=== PATIENT | male | born 1950 | race Caucasian/White ===

== ENCOUNTER → 2016-11-08 | Outpatient (CLI) | payer OTHER ==
[~2016-11-08] MED LIST: ACET-1256 PO; MULT-513 PO; OXYC-57 PO; SIMV-151 PO
[2016-11-08 13:02] LABS: BLOOD UREA NITROGEN 18 mg/dl (7-18); BUN/CREATININE RATIO 16.6 (10-20); CARBON DIOXIDE 28 mmol/L (21-32); CHLORIDE 106 mmol/L (98-107); GLUCOSE 237 mg/dl (70-99); POTASSIUM 4.4 mmol/L (3.5-5.1); SODIUM 143 mmol/L (136-145)
== END | disposition home or self-care (01) ==
LOC: C.LABBFT 10:25
PROVIDERS: ATTEND Physician Assistant Medical
DX: I10 Essential (primary) hypertension (principal)

== ENCOUNTER → 2017-06-04 | Outpatient (CLI) | payer OTHER ==
[2017-06-04 12:37] LABS: BASO % 0.7 %; BASO ABS # 0.06 K/uL (0-0.2); EOS % 3.6 %; HEMATOCRIT 44.8 % (42-52); IG% 0.3 %; LYMPH % 21.8 %; LYMPH ABS # 1.89 K/uL (1.2-3.4); MEAN CELL VOLUME 97.4 fL (80-100); MEAN CORPUSCULAR HEMOGLOBIN 33.3 pg (25-34); MEAN PLATELET VOLUME 10.1 fL (7.4-10.4); MONO % 13.2 %; NEUT % 60.4 %; PLATELET COUNT 196 K/uL (130-400); WHITE BLOOD COUNT 8.65 K/uL (4.8-10.8)
[2017-06-04 12:42] LABS: COMPLETE YES; MEAN CORPUSCULAR HGB CONC 34.2 g/dl (32-36)
[2017-06-04 18:32] LABS: ALT/SGPT 79 U/L (12-78); BLOOD UREA NITROGEN 15 mg/dl (7-18); BUN/CREATININE RATIO 15.9 (10-20); CALCIUM 9.1 mg/dl (8.5-10.1); CARBON DIOXIDE 28 mmol/L (21-32); CHLORIDE 105 mmol/L (98-107); CREATININE 0.97 mg/dl (0.60-1.40); GLUCOSE 119 mg/dl (70-99); POTASSIUM 3.7 mmol/L (3.5-5.1); SODIUM 139 mmol/L (136-145)
[2017-06-04 18:58] LABS: ALB/GLOB RATIO 0.9 (0.9-2); ALKALINE PHOSPHATASE 86 U/L (45-117); AST/SGOT 50 U/L (15-37); THYROID STIMULATING HORMONE 0.458 uIu/ml (0.300-4.500)
== END | disposition home or self-care (01) ==
LOC: C.LABBFT 11:20
PROVIDERS: ATTEND Internal Medicine Hematology
DX: C79.2 Secondary malignant neoplasm of skin (principal); C43.61 Malignant melanoma of right upper limb, including shoulder; Z51.81 Encounter for therapeutic drug level monitoring; Z79.899 Other long term (current) drug therapy

== ENCOUNTER 2022-07-18 15:35 | Inpatient (IN) ==
--- NOTE | 2022-07-18 15:53 | Emergency Department Note ---
Impression & Plan Acute hypotension, Weakness, Fall, Cellulitis, Fracture of rib ED Provider Note NAME: SANTY MCFADDEN AGE: 72 SEX: M : 1950 ARRIVES VIA: Ambulance INFORMANT: Patient ED PROVIDER(S): Gurmeet Goodman DO CHIEF COMPLAINT: hypotension HPI: Patient is a 72-year-old male with a past medical history of squamous cell carcinoma, basal cell carcinoma, esophageal carcinoma who presents to the ER following a fall at home last night. He laid on the floor for 3 hours and was unable to get up. He was seen at PCPs office and referred in as he was found to be hypotensive. He notes he could feel his heart racing last night but denies any chest pain. He admits to shortness of breath which is unchanged from his typical shortness of breath. He admits to erythema on the anterior aspect of his abdomen which is new when today's first time he seen this. Denies any dysuria, urgency, or frequency. No weakness or numbness in the arms or legs. No other exacerbating or remitting factors. PAST MEDICAL HISTORY:See Below PAST SURGICAL HISTORY:See Below FAMILY HISTORY:See Below SOCIAL HISTORY:See Below HOME MEDICATIONS:See Below ALLERGIES:See Below VITALS:See Below PHYSICAL EXAMINATION: GENERAL: Sitting up in bed, alert, ill-appearing, disheveled EYE EXAM: normal conjunctiva. PERRL and EOM's grossly intact. OROPHARYNX: no exudate, no erythema, lips, buccal mucosa, and tongue normal and mucous membranes are moist NECK: supple, no nuchal rigidity, no adenopathy, non-tender LUNGS: Diminished bilaterally. Normal chest wall mechanics HEART: Tachycardic and irregular regular, S1 normal and S2 normal ABDOMEN: abdomen soft, non-tender, normo-active bowel sounds, no masses, no rebound or guarding. UPPER EXTREMITIES: Flexion-extension bilateral shoulders, elbows, wrist, and grasp is intact bilaterally with abrasions over the left elbow. No bony tenderness. LOWER EXTREMITIES: Pitting edema to bilateral lower extremities tracking up to abdomen NEURO EXAM: Normal sensorium, cranial nerves II-XII grossly intact, normal speech, no gross weakness of arms, no gross weakness of legs. MEDICAL DECISION MAKING: Patient is a 72-year-old male who presents ER from PCPs office. External records were reviewed. IV was established blood work was obtained. Systolic pressures dropped into the 70s upon initial arrival. He was given a bolus of IV fluids. The responded to the 90s. He dropped his pressures again into the 70s and it responded once again with fluids. Remainder of his stay pressures remained in the 90s. Labs show leukocytosis 13,000. Hemoglobin 10.6 consistent with previous. INR 1.5. BMP with a creatinine 1.9 which has doubled in comparison to previous. Lactate was normal. T bili at 1.5 with a mild transaminitis. Total CK was only 680. Troponin was negative. With the fall CT of the head, chest abdomen pelvis was obtained and showed a questionable rib fracture. Patient does have erythema on the anterior abdomen. It is warm and tender to palpation. Do favor that this likely source. He was given IV fluids as well as as albumin, and cefepime. Blood pressures responded well and remained in the low 100s/high 90s. He was updated at bedside. Discussed with the hospitalist for further evaluation and treatment. He was not given 30 cc/kg due to the extensive pitting edema and ascites with concern for failure/volume overload. Triage Nursing notes reviewed. Limited review of prior medical records performed Vital Signs: reviewed and remarkable for hypotension Differential diagnosis: Differential diagnosis includes etiologies such as sepsis, UTI, pneumonia, metabolic, electrolyte abnormalities, cardiac sources, intracerebral event, toxicologic, neurological, as well as others were entertained. ER treatment provided: See below Diagnostics interpreted by me include EKG and cardiac monitoring as listed below: -Cardiac Monitoring: An order was placed for continuous cardiac monitoring. The monitor shows a rate of 97 with Afib rhythm. -ECG: A. fib rate of 96 Normal axis No PVCs QTC 449 -Laboratory studies:Interpreted by me as stated above in MDM and shown below. Imaging studies: Xrays: As interpreted by me: Portable AP upright 1 view the chest shows no focal infiltrate per my read CTs show: CT bess scan shows questionable rib fracture along the 12th rib and a likely mass. Consultation(s): Discussed case with Dr. Harry Schwarz in regards to presentation work-up and further treatment. Procedures:none Critical Care: I have personally spent 32 minutes of critical care time in the direct management of this patient. This includes bedside care, interpretation of diagnostic studies, and testing, discussion with consultants, patient, and family members, and other required patient management activities. This 32 minutes is in excess of all separately billable procedures. Past Med/Surg History Medical History Henry's esophagus BCC (basal cell carcinoma of skin) Bilateral nephrolithiasis Diabetes mellitus, type 2 Esophageal adenocarcinoma Gallstones GERD (gastroesophageal reflux disease) History of colon cancer History of eye cancer Hyperlipidemia Hypertension Hypothyroidism Inguinal hernia, bilateral Melanoma Nonalcoholic fatty liver disease Rib fracture SCC (squamous cell carcinoma) Surgical History H/O colonoscopy H/O eye surgery H/O right hemicolectomy History of esophagogastroduodenoscopy (EGD) History of left cataract surgery History of surgery on arm History of tooth extraction Family History Mother Diabetes Father Diabetes Other Hyperlipidemia No family history of adverse response to anesthesia Stroke Denies family history of Ovarian cancer Prostate cancer Breast cancer Colorectal cancer Social History Smoking Status: Former smoker Age Started Using Tobacco: 11; Age Quit Using Tobacco: 62; packs per day: 1.5; Cigarettes Per Day: 7 YEARS AGO; Second Hand Exposure: No; Hx Alcohol Use: No Hx Substance Use: No Preferred Language: Italian Communication Ability: Effective Hearing Ability: Normal 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 Required: No Beliefs That Will Affect Care: None marital status: / Current Living Situation: Alone current occupational status: retired Feels Safe at Home: Yes Seatbelt Use: always Sunscreen Use: Yes Assistive Devices: Denture - Upper, Denture - Lower and Glasses Allergies Allergies Allergy/AdvReac Type Severity Reaction Status Date / Time No Known Allergies Allergy Verified 07/18/22 14:26 Home Meds Home Medications Medication Instructions Recorded Confirmed multivitamin 1 tab PO QPM 01/26/19 07/18/22 lancets 33 gauge (Shruthi Iniguez #100 ea 06/27/21 07/18/22 Lancets) lisinopril 20 mg tablet 20 mg PO QPM 10/01/21 07/18/22 aspirin 81 mg tablet,delayed 81 mg PO DAILY 07/18/22 07/18/22 release atorvastatin 40 mg tablet 40 mg PO HS 07/18/22 07/18/22 insulin aspart U-100 100 unit/mL 12 unit subcut TID 07/18/22 07/18/22 (3 mL) subcutaneous pen (Novolog FlexPen U-100 Insulin aspart) insulin glargine 100 unit/mL (3 32 unit subcut HS 07/18/22 07/18/22 mL) subcutaneous pen (Basaglar KwikPen U-100 Insulin) levothyroxine 88 mcg tablet 88 mcg PO QAM 07/18/22 07/18/22 liraglutide 0.6 mg/0.1 mL (18 mg/3 1.8 mg subcut DAILY 07/18/22 07/18/22 mL) subcutaneous pen injector ([facility]) omeprazole 40 mg capsule,delayed 40 mg PO DAILY 07/18/22 07/18/22 release Previous Rx's Medication Instructions Recorded OneTouch Verio test strips (blood #300 ea 02/06/22 sugar diagnostic) pen needle, diabetic 32 gauge x #500 ea 02/06/22 5/32" (BD Ultra-Fine Pascale Pen Needle) Results & Data (ED) Vital Signs Vital Signs - 24 hr 07/18/22 15:51 07/18/22 16:00 07/18/22 16:00 Temperature 36.4 C L Temperature Source Oral Pulse Rate 92 H Pulse Rate [Right Finger] 94 H Pulse Rhythm [Right Finger] Pulse Strength [Right Finger] Respiratory Rate Respiratory Effort / Characteristics Respiratory Depth Respiratory Pattern Blood Pressure 92/51 L Blood Pressure [Right Arm] 92/51 L Blood Pressure Mean 64 Blood Pressure Mean [Right Arm] 64 Blood Pressure Position [Right Arm] Pulse Oximetry 98 94 Oxygen Delivery Method Room Air Room Air Sepsis Recent Fever Within 48 Hours No Sepsis New/Unexplained Change in Mental Status No Sepsis Action Taken by Nursing No Action Required Pulse Oximetry Post Tiitration 94 07/18/22 16:29 07/18/22 16:43 07/18/22 17:48 Temperature Temperature Source Pulse Rate Pulse Rate [Right Finger] 92 H 97 H Pulse Rhythm [Right Finger] Pulse Strength [Right Finger] Respiratory Rate Respiratory Effort / Characteristics Respiratory Depth Respiratory Pattern Blood Pressure Blood Pressure [Right Arm] 88/53 L Blood Pressure Mean Blood Pressure Mean [Right Arm] 64 Blood Pressure Position [Right Arm] Pulse Oximetry 95 93 Oxygen Delivery Method Room Air Room Air Sepsis Recent Fever Within 48 Hours Sepsis New/Unexplained Change in Mental Status Sepsis Action Taken by Nursing Pulse Oximetry Post Tiitration 07/18/22 17:48 07/18/22 18:02 07/18/22 18:34 Temperature Temperature Source Pulse Rate Pulse Rate [Right Finger] 90 91 H 95 H Pulse Rhythm [Right Finger] Pulse Strength [Right Finger] Respiratory Rate Respiratory Effort / Characteristics Respiratory Depth Respiratory Pattern Blood Pressure Blood Pressure [Right Arm] 97/62 L 73/55 L 84/65 L Blood Pressure Mean Blood Pressure Mean [Right Arm] 73 61 71 Blood Pressure Position [Right Arm] Pulse Oximetry 93 93 93 Oxygen Delivery Method Room Air Room Air Room Air Sepsis Recent Fever Within 48 Hours Sepsis New/Unexplained Change in Mental Status Sepsis Action Taken by Nursing Pulse Oximetry Post Tiitration 07/18/22 19:00 07/18/22 19:15 07/18/22 19:30 Temperature Temperature Source Pulse Rate Pulse Rate [Right Finger] 100 H 99 H 98 H Pulse Rhythm [Right Finger] Regular Regular Regular Pulse Strength [Right Finger] Normal Normal Normal Respiratory Rate 17 18 18 Respiratory Effort / Characteristics Non-Labored Non-Labored Non-Labored Respiratory Depth Normal Normal Normal Respiratory Pattern Regular Regular Regular Blood Pressure Blood Pressure [Right Arm] 84/65 L 123/59 L 97/55 L Blood Pressure Mean Blood Pressure Mean [Right Arm] 71 80 69 Blood Pressure Position [Right Arm] Lying Lying Lying Pulse Oximetry 93 95 93 Oxygen Delivery Method Room Air Room Air Room Air Sepsis Recent Fever Within 48 Hours Sepsis New/Unexplained Change in Mental Status Sepsis Action Taken by Nursing Pulse Oximetry Post Tiitration 07/18/22 19:45 07/18/22 20:00 Temperature Temperature Source Pulse Rate Pulse Rate [Right Finger] 97 H 97 H Pulse Rhythm [Right Finger] Regular Regular Pulse Strength [Right Finger] Normal Normal Respiratory Rate 18 18 Respiratory Effort / Characteristics Non-Labored Non-Labored Respiratory Depth Normal Normal Respiratory Pattern Regular Regular Blood Pressure Blood Pressure [Right Arm] 94/50 L Blood Pressure Mean Blood Pressure Mean [Right Arm] 64 Blood Pressure Position [Right Arm] Lying Pulse Oximetry 93 93 Oxygen Delivery Method Room Air Room Air Sepsis Recent Fever Within 48 Hours Sepsis New/Unexplained Change in Mental Status Sepsis Action Taken by Nursing Pulse Oximetry Post Tiitration Laboratory Data 07/18/22 16:30 07/18/22 16:30 Lab Results 07/18/22 07/18/22 07/18/22 Range/Units 16:16 16:30 16:30 WBC 13.34 H (4.8-10.8) K/ul RBC 3.37 L (4.70-6.10) M/uL Hgb 10.6 L (14.0-18.0) g/dl POC Hgb 12.2 L (14.0-18.0) g/dl Hct 33.1 L (42.0-52.0) % POC Hct 36 L (42-52) % MCV 98.2 (80.0-100.0) fL MCH 31.5 (25.0-34.0) pg MCHC 32.0 (32.0-36.0) g/dL RDW Std Deviation 50.8 H (36.4-46.3) fL RDW Coeff of Merritt 14.1 (11.5-14.5) % Plt Count 265 (130-400) K/uL MPV 9.9 (9.4-12.4) fL Immature Gran % (Auto) 0.6 % Neut % (Auto) 82.2 % Lymph % (Auto) 6.3 % Jackson % (Auto) 10.6 % Eos % (Auto) 0.1 % Baso % (Auto) 0.2 % Neut # (Auto) 10.96 H (1.40-6.50) K/uL Lymph # (Auto) 0.84 L (1.2-3.4) K/uL Jackson # (Auto) 1.41 H (0.11-0.59) K/uL Eos # (Auto) 0.02 (0-0.50) K/uL Baso # (Auto) 0.03 (0-0.2) K/uL Immature Gran # (Auto) 0.08 (0.01-0.20) K/uL PT (9.0-12.0) Seconds INR (0.9-1.1) APTT (21.0-31.0) Seconds PTT Ratio POC Sodium 142 (135-144) mmol/L Sodium 142 (136-145) mmol/L POC Potassium 4.5 (3.3-5.0) mmol/L Potassium 4.6 (3.5-5.1) mmol/L POC Chloride 108 (101-112) mmol/L Chloride 108 H (98-107) mmol/L Carbon Dioxide 25 (21-32) mmol/L POC Total CO2 26 (24-31) mmol/L Anion Gap 9 (3-11) POC Anion Gap 14.0 L (16-25) mmol/L POC BUN 34 H (7-18) mg/dl BUN 34 H (6-23) mg/dl Creatinine 1.91 H (0.6-1.4) mg/dl POC Creatinine 2.1 H (0.6-1.3) mg/dl Est Cr Clr Drug Dosing 43.1 ml/min Est GFR ( Amer) 39.4 ml/min Est GFR (Non-Af Amer) 34.0 ml/min BUN/Creatinine Ratio 17.8 (10-20) Glucose 84 (70-99(Fasting)) mg/dl POC Glucose (other) 81 (70-99) mg/dl Lactate (0.4-2.0) mmol/L Calcium 8.4 L (8.5-10.1) mg/dl POC Ioniz Calcium Bam 1.06 L (1.12-1.32) mmol/l Magnesium 2.2 (1.7-2.4) mg/dl Total Bilirubin 1.5 H (0.2-1.0) mg/dl Direct Bilirubin 0.6 H (0-0.2) mg/dl AST 86 H (13-39) U/L ALT 58 H (7-52) U/L Alkaline Phosphatase 174 H (34-104) U/L Total Creatine Kinase 680 H (30-223) U/L Troponin I High Sens 18.3 (0-20) pg/ml Total Protein 6.8 (6.0-8.3) gm/dl Albumin 2.4 L (3.4-5.0) gm/dl Procalcitonin (0-0.5) ng/ml SARS-CoV-2, RNA, NAAT (NEGATIVE) 07/18/22 07/18/22 07/18/22 Range/Units 16:30 16:30 17:26 WBC (4.8-10.8) K/ul RBC (4.70-6.10) M/uL Hgb (14.0-18.0) g/dl POC Hgb (14.0-18.0) g/dl Hct (42.0-52.0) % POC Hct (42-52) % MCV (80.0-100.0) fL MCH (25.0-34.0) pg MCHC (32.0-36.0) g/dL RDW Std Deviation (36.4-46.3) fL RDW Coeff of Merritt (11.5-14.5) % Plt Count (130-400) K/uL MPV (9.4-12.4) fL Immature Gran % (Auto) % Neut % (Auto) % Lymph % (Auto) % Jackson % (Auto) % Eos % (Auto) % Baso % (Auto) % Neut # (Auto) (1.40-6.50) K/uL Lymph # (Auto) (1.2-3.4) K/uL Jackson # (Auto) (0.11-0.59) K/uL Eos # (Auto) (0-0.50) K/uL Baso # (Auto) (0-0.2) K/uL Immature Gran # (Auto) (0.01-0.20) K/uL PT 15.4 H (9.0-12.0) Seconds INR 1.5 H (0.9-1.1) APTT 31.8 H (21.0-31.0) Seconds PTT Ratio 1.2 POC Sodium (135-144) mmol/L Sodium (136-145) mmol/L POC Potassium (3.3-5.0) mmol/L Potassium (3.5-5.1) mmol/L POC Chloride (101-112) mmol/L Chloride (98-107) mmol/L Carbon Dioxide (21-32) mmol/L POC Total CO2 (24-31) mmol/L Anion Gap (3-11) POC Anion Gap (16-25) mmol/L POC BUN (7-18) mg/dl BUN (6-23) mg/dl Creatinine (0.6-1.4) mg/dl POC Creatinine (0.6-1.3) mg/dl Est Cr Clr Drug Dosing ml/min Est GFR ( Amer) ml/min Est GFR (Non-Af Amer) ml/min BUN/Creatinine Ratio (10-20) Glucose (70-99(Fasting)) mg/dl POC Glucose (other) (70-99) mg/dl Lactate 1.4 (0.4-2.0) mmol/L Calcium (8.5-10.1) mg/dl POC Ioniz Calcium Bam (1.12-1.32) mmol/l Magnesium (1.7-2.4) mg/dl Total Bilirubin (0.2-1.0) mg/dl Direct Bilirubin (0-0.2) mg/dl AST (13-39) U/L ALT (7-52) U/L Alkaline Phosphatase (34-104) U/L Total Creatine Kinase (30-223) U/L Troponin I High Sens (0-20) pg/ml Total Protein (6.0-8.3) gm/dl Albumin (3.4-5.0) gm/dl Procalcitonin 0.78 H (0-0.5) ng/ml SARS-CoV-2, RNA, NAAT (NEGATIVE) 07/18/22 Range/Units 19:30 WBC (4.8-10.8) K/ul RBC (4.70-6.10) M/uL Hgb (14.0-18.0) g/dl POC Hgb (14.0-18.0) g/dl Hct (42.0-52.0) % POC Hct (42-52) % MCV (80.0-100.0) fL MCH (25.0-34.0) pg MCHC (32.0-36.0) g/dL RDW Std Deviation (36.4-46.3) fL RDW Coeff of Merritt (11.5-14.5) % Plt Count (130-400) K/uL MPV (9.4-12.4) fL Immature Gran % (Auto) % Neut % (Auto) % Lymph % (Auto) % Jackson % (Auto) % Eos % (Auto) % Baso % (Auto) % Neut # (Auto) (1.40-6.50) K/uL Lymph # (Auto) (1.2-3.4) K/uL Jackson # (Auto) (0.11-0.59) K/uL Eos # (Auto) (0-0.50) K/uL Baso # (Auto) (0-0.2) K/uL Immature Gran # (Auto) (0.01-0.20) K/uL PT (9.0-12.0) Seconds INR (0.9-1.1) APTT (21.0-31.0) Seconds PTT Ratio POC Sodium (135-144) mmol/L Sodium (136-145) mmol/L POC Potassium (3.3-5.0) mmol/L Potassium (3.5-5.1) mmol/L POC Chloride (101-112) mmol/L Chloride (98-107) mmol/L Carbon Dioxide (21-32) mmol/L POC Total CO2 (24-31) mmol/L Anion Gap (3-11) POC Anion Gap (16-25) mmol/L POC BUN (7-18) mg/dl BUN (6-23) mg/dl Creatinine (0.6-1.4) mg/dl POC Creatinine (0.6-1.3) mg/dl Est Cr Clr Drug Dosing ml/min Est GFR ( Amer) ml/min Est GFR (Non-Af Amer) ml/min BUN/Creatinine Ratio (10-20) Glucose (70-99(Fasting)) mg/dl POC Glucose (other) (70-99) mg/dl Lactate (0.4-2.0) mmol/L Calcium (8.5-10.1) mg/dl POC Ioniz Calcium Bam (1.12-1.32) mmol/l Magnesium (1.7-2.4) mg/dl Total Bilirubin (0.2-1.0) mg/dl Direct Bilirubin (0-0.2) mg/dl AST (13-39) U/L ALT (7-52) U/L Alkaline Phosphatase (34-104) U/L Total Creatine Kinase (30-223) U/L Troponin I High Sens (0-20) pg/ml Total Protein (6.0-8.3) gm/dl Albumin (3.4-5.0) gm/dl Procalcitonin (0-0.5) ng/ml SARS-CoV-2, RNA, NAAT NEGATIVE (NEGATIVE) Administered Medications Albumin Human (Albumin 25% 100 Ml) 25 gm in 100 mls @ 50 mls/hr IV Q2H BATSHEVA Stop: 07/19/22 01:14 Last Admin: 01/26/23 20:17 Dose: 50 mls/hr Documented By: LRS Discontinued Medications Sodium Chloride (Nss 1000ml) 1,000 mls @ 999 mls/hr IV .Q1H1M ONE Stop: 07/18/22 19:05 Last Infusion: 07/18/22 19:33 Dose: 0 mls/hr Documented By: Admin: 07/18/22 18:10 Dose: 999 mls/hr Documented By: MES Cefepime HCl (Maxipime) 2,000 mg in 20 mls @ 5 mls/min IV NOW STA; Protocol Stop: 07/18/22 18:09 Last Admin: 07/18/22 18:29 Dose: 5 mls/min Documented By: MES Albumin Human (Albumin 25% 100 Ml) 25 gm in 100 mls @ 50 mls/hr IV ONE ONE Stop: 07/18/22 20:09 Last Infusion: 07/18/22 20:12 Dose: 0 mls/hr Documented By: Admin: 07/18/22 18:30 Dose: 50 mls/hr Documented By: MES Midodrine (Midodrine Hcl 2.5 Mg Tab) 5 mg PO ONE STA Stop: 07/18/22 18:47 Last Admin: 07/18/22 19:09 Dose: 5 mg Documented By: [facility] Imaging Data Radiologist's Impression: Cervical Spine CT 07/18/22 15:47 CT cervical spine wo con CLINICAL HISTORY: 72 years-old Male with fall. Acute head and neck injury status post fall COMPARISON: Head CT of same day TECHNIQUE: Multiple axial CT images of the cervical spine were obtained without contrast. A dose lowering technique was utilized adhering to the principles of ALARA. FINDINGS: Straightening of the normal cervical lordosis. Prominent osteophytic spurring with posterior disc osteophyte complex formations, largest at the C5-C6 level resulting in severe central canal stenosis. Additional multilevel central canal or neural foraminal narrowing, suboptimally assessed by CT technique. Moderate multilevel facet arthrosis. No acute cervical spine fracture or mckeon bluxation identified. The cervical soft tissues appear unremarkable. Polypoid mucosal thickening of the left maxillary sinus is partially imaged. The visualized lung apices appear clear. IMPRESSION: No acute cervical spine fracture or subluxation identified. ACT 112: Negative or not required by law. The above report was generated using voice recognition software. It may contain grammatical, syntax or spelling errors. Electronically signed by: Erwin Gomez M.D. 07/18/2022 5:[address] 07/18/22 15:[address] DOSE: HISTORY: Headache. Dizziness. TECHNIQUE: Multiaxial CT images of the head were performed without the use of intravenous contrast. Automated exposure control was utilized for this study. A dose lowering technique was utilized adhering to the principles of ALARA. Comparison: None. Findings: There is a 1.5 cm retention cyst within the left maxillary sinus. The mastoid air cells are clear. The calvarium and skull base are intact. There is no mass, hematoma, midline shift, acute infarct. White matter hypodensity is nonspecific but suggestive of microvascular ischemic change. The ventricles and sulci demonstrate mild age-related involutional changes. Impression: No acute intracranial abnormality. Atrophy and microvascular ischemic changes. ACT 112: Negative or not required by law. Electronically signed by: José Miguel Maloney M.D. 07/18/2022 5:46 PM Chest X-Ray 07/18/22 15:48 XR chest 1V portable HISTORY: 72 years-old Male Sepsis acute sepsis COMPARISON: Chest radiograph 04/01/2014 TECHNIQUE: AP view of the chest FINDINGS: Cardiac mediastinal and hilar silhouettes are within normal limits. No pneumothorax, pleural effusion, airspace consolidation or overt pulmonary edema. Degenerative changes of the shoulders and spine. IMPRESSION: No acute process. ACT 112: Negative or not required by law. The above report was generated using voice recognition software. It may contain grammatical, syntax or spelling errors. Electronically signed by: Erwin Gomez M.D. 07/18/2022 4:47 PM Abdomen/Pelvis CT 07/18/22 16:[address] WITHOUT CONTRAST HISTORY: Acute generalized abdominal pain status post fall abd pain TECHNIQUE: Multiaxial CT images of the abdomen and pelvis were performed without contrast. A dose lowering technique was utilized adhering to the principles of ALARA. COMPARISON STUDY: Chest CT of same day, CT abdomen and pelvis 03/27/2014 FINDINGS: Mild linear subsegmental atelectasis of the right lower lobe. No pneumatosis or pneumoperitoneum. The study is degraded by respiratory motion artifact. The unenhanced spleen is enlarged measuring 15 cm in length. Moderately dystrophic pancreas. Mild thickening of the left greater than right adrenal glands similar prior suggestive of hyperplasia. Cirrhotic liver. No hepatic mass identified. Contracted gallbladder with cholelithiasis. 8 mm cortical calcification of the superior pole right kidney. 4 mm nonobstructing calculus of the inferior pole left kidney. No ureteral calculi or hydronephrosis. Partial distention of the urinary bladder. Mild prostamegaly. Small fat filled inguinal hernias. Atherosclerosis of the aorta with fusiform infrarenal images and dilation, 3.2 x 2.8 cm. No lymphadenopathy identified. Small hiatal hernia. Mild wall thickening of the distal stomach may be secondary to partial distention. Recanalization of the umbilical vein. Moderate abdominal ascites with abdominal varicosities. Circumferential wall thickening of the rectum with perirectal stranding. Colonic diverticulosis. Wall thickening of the descending and sigmoid colon. Postoperative changes of partial right hemicolectomy. Mild twisting of the central mesentery with nonobstructive bowel gas pattern. Mild generalized body wall edema. 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 Possible acute nondisplaced fracture of the posterior left 12th rib. Degenerative changes of the spine, pelvis and hips. L5-S1 posterior disc osteophyte complex formation. IMPRESSION: 1. No acute posttraumatic intra-abdominal or intrapelvic abnormality identified. 2. Equivocal acute nondisplaced fracture of the posterior left 12th rib. Correlate with point tenderness. 3. Cirrhosis with evidence of portal venous hypertension including splenomegaly with moderate abdominal pelvic ascites. 4. Mild wall thickening of the distal colon and rectum may be secondary to a nonspecific proctocolitis versus portal colopathy. 5. Postoperative changes of right hemicolectomy. 6. Cholelithiasis. 7. Bilateral renal calcifications. No hydronephrosis. 8. Additional findings as above. ACT 112: Negative or not required by law. The above report was generated using voice recognition software. It may contain grammatical, syntax or spelling errors. Electronically signed by: Erwin Gomez M.D. 07/18/2022 5:[address] 07/18/22 16:43 CT chest diagnostic wo con CT DOSE: 3335.02 mGy.cm HISTORY: Atypical chest pain. Fall. fall hypotension TECHNIQUE: Multiaxial CT images of the chest were performed without contrast. A dose lowering technique was utilized adhering to the principles of ALARA. COMPARISON: Abdomen and pelvis CT 03/27/2014.. FINDINGS: No acute fractures identified within the chest. Old, healed left lower rib fractures are noted. There is an old nonunited right posterior 11th rib fracture. The abdominal structures will be reported in the same day abdomen and pelvis CT. Normal thyroid gland. No mediastinal hematoma. Increase in size in a 1 cm anterior pericardial lymph node. This previously measured 5 mm. Small fat-containing hiatal hernia is noted cirrhotic liver with splenomegaly and ascites. No pleural or pericardial effusions. Normal caliber esophagus. Mild calcified plaque within the normal caliber thoracic aorta. The heart is normal in size. No pneumothorax. There is mild bronchial wall thickening. There is mild emphysema. Stable 6 mm nodule within the base of the left lower lobe on image 251. This is likely benign given the long-term stability. Nodular thickening along left major fissure with a punctate calcification is likely benign. There is a 2 mm nodule within the right lung apex on image 42. Partially calcified lobular density within the right lung base which has slightly increased in size in the interval. This results in areas of retraction of the right lung base. This may represent a calcified pleural plaque with associated scarring of the right lung base. However, the 3.3 x 2.2 cm lobular density in image 249 has slightly progressed. This previously measured 2.7 x 1.8 cm. IMPRESSION: 1. No acute traumatic process within the chest. 2. Partially calcified lobular density within the right lung base which has slightly increased in size in the interval. This results in areas of retraction of the right lung base. This may represent a calcified pleural plaque with associated scarring of the right lung base. However, the 3.3 x 2.2 cm lobular density at the right lung base has slightly progressed. This previously measured 2.7 x 1.8 cm. Therefore, [address] follow-up recommended to ensure stability. 3. Emphysema. 4. Cirrhotic liver and ascites are better appreciated on the same day abdomen and pelvis CT. ACT 112: Positive. There are findings on this exam that require communication between the performing entity and the patient following Patient Test Result Information Act ([place] Act 112) guidelines. Electronically signed by: José Miguel Maloney M.D. 07/18/2022 5:56 PM Discharge Plan Visit Data Chief Complaint: Hypotension Stated Complaint: HYPOTENSION ED Provider: Gurmeet Goodman Discharge Problem: Acute hypotension, Weakness, Fall, Cellulitis, Fracture of rib Forms Stand Alone Forms: My [facility] Prescriptions Prescriptions: No Action (DME) OneTouch Verio test strips Strip See Dose Instructions .ROUTE .MEDSUPPLY Qty: 300 3RF Rx Instructions: Test blood sugars 3 times a day (DME) pen needle, diabetic [BD Ultra-Fine Pascale Pen Needle] 32 gauge x 5/32" needle See Dose Instructions .ROUTE .MEDSUPPLY Qty: 500 3RF Rx Instructions: Inject insulin 5 times a day multivitamin tablet 1 tab PO QPM (DME) lancets [OneTouch Delica Lancets] 33 gauge misc See Rx Instructions .ROUTE .MEDSUPPLY Qty: 100 Rx Instructions: Test blood sugars 2 times a day lisinopril 20 mg tablet 20 mg PO QPM Victoza 3-Joshua 0.6 mg/0.1 mL (18 mg/3 mL) pen injector 1.8 mg SUBCUT DAILY atorvastatin 40 mg tablet 40 mg PO HS Rx Instructions: TAKE 1 TAB BY MOUTH AT BEDTIME omeprazole 40 mg capsule,delayed release(DR/EC) 40 mg PO DAILY Rx Instructions: TAKE 1 CAPSULE BY MOUTH DAILY insulin aspart U-100 [Novolog FlexPen U-100 Insulin] 100 unit/mL (3 mL) insulin pen 12 unit SQ TID Rx Instructions: plus sliding scale insulin glargine [Basaglar KwikPen U-100 Insulin] 100 unit/mL (3 mL) insulin pen 32 unit SQ HS Rx Instructions: 32 units subcut at bedtime; aspirin [Aspir-Low] 81 mg Tablet,Delayed Release (Dr/Ec) 81 mg PO DAILY levothyroxine 88 mcg tablet 88 mcg PO QAM Rx Instructions: 88 mcg PO TAKE ON AN EMPTY STOMACH WITH A FULL GLASS OF WATER, WAIT 30 MINUTES TO EAT, DRINK, OR TAKE MEDICATIONS; Referrals Referrals: Rosalva Bravo MD [Primary Care Provider] -
[2022-07-18 16:29] LABS: iSTAT Creatinine 2.1 mg/dl (0.6-1.3); iSTAT Hemoglobin 12.2 g/dl (14.0-18.0); iSTAT Ionized Calcium 1.06 mmol/l (1.12-1.32); iSTAT Potassium 4.5 mmol/L (3.3-5.0)
--- NOTE | 2022-07-18 16:48 | XRay Report ---
XR chest 1V portable HISTORY: 72 years-old Male Sepsis acute sepsis COMPARISON: Chest radiograph 04/01/2014 TECHNIQUE: AP view of the chest FINDINGS: Cardiac mediastinal and hilar silhouettes are within normal limits. No pneumothorax, pleural effusion , airspace consolidation or overt pulmonary edema. Degenerative changes of the shoulders and spine. IMPRESSION: No acute process. ACT 112: Negative or not required by law. The above report was generated using voice recognition software. It may contain grammatical, syntax o r spelling errors. Electronically signed by: Erwin Gomez M.D. 07/18/2022 4:47 PM
[2022-07-18 17:16] LABS: Basophils # (auto) 0.03 K/uL (0-0.2); Basophils % (auto) 0.2 %; Eosinophils # (auto) 0.02 K/uL (0-0.50); Eosinophils % (auto) 0.1 %; Hematocrit (blood only) 33.1 % (42.0-52.0); Hemoglobin 10.6 g/dl (14.0-18.0); Immature Granulocytes # (auto) 0.08 K/uL (0.01-0.20); Immature Granulocytes % (auto) 0.6 %; Lymphocytes # (auto) 0.84 K/uL (1.2-3.4); Lymphocytes % (auto) 6.3 %; Mean Corpuscular Hemoglobin 31.5 pg (25.0-34.0); Mean Corpuscular Volume 98.2 fL (80.0-100.0); Mean Platelet Volume 9.9 fL (9.4-12.4); Monocytes # (auto) 1.41 K/uL (0.11-0.59); Monocytes % (auto) 10.6 %; Neutrophils # (auto) 10.96 K/uL (1.40-6.50); Neutrophils % (auto) 82.2 %; Platelet Count 265 K/uL (130-400); RDW Coefficient of Variation 14.1 % (11.5-14.5); RDW Standard Deviation 50.8 fL (36.4-46.3); Red Blood Count 3.37 M/uL (4.70-6.10); White Blood Count 13.34 K/ul (4.8-10.8)
[2022-07-18 17:30] LABS: Albumin Level 2.4 gm/dl (3.4-5.0); Bilirubin Direct 0.6 mg/dl (0-0.2); Bilirubin,Total 1.5 mg/dl (0.2-1.0); Calcium 8.4 mg/dl (8.5-10.1); Magnesium 2.2 mg/dl (1.7-2.4); Potassium 4.6 mmol/L (3.5-5.1)
[2022-07-18 17:35] LABS: Troponin I High Sensitivity 18.3 pg/ml (0-20)
[2022-07-18 17:36] LABS: BUN Creatinine Ratio 17.8 (10-20); Creatinine Clr Calc Pharmacy 43.1 ml/min; Est GFR (African American) 39.4 ml/min; Total Protein 6.8 gm/dl (6.0-8.3)
--- NOTE | 2022-07-18 17:48 | CT Scan Report ---
HEAD CT NONCONTRAST CT DOSE: HISTORY: Headache. Dizziness. TECHNIQUE: Multiaxial CT images of the head were performed without the use of intravenous contrast. A utomated exposure control was utilized for this study. A dose lowering technique was utilized adheri ng to the principles of ALARA. Comparison: None. Findings: There is a 1.5 cm retention cyst within the left maxillary sinus. The mastoid air cells are clear. The calvarium and skull base are intact. There is no mass, hematoma, midline shift, acute inf arct. White matter hypodensity is nonspecific but suggestive of microvascular ischemic change. The ve ntricles and sulci demonstrate mild age-related involutional changes. Impression: No acute intracranial abnormality. Atrophy and microvascular ischemic changes. ACT 112: Negative or not required by law. Electronically signed by: José Miguel Maloney M.D. 07/18/2022 5:46 PM
--- NOTE | 2022-07-18 17:51 | CT Scan Report ---
CT cervical spine wo con CLINICAL HISTORY: 72 years-old Male with fall. Acute head and neck injury status post fall COMPARISON: Head CT of same day TECHNIQUE: Multiple axial CT images of the cervical spine were obtained without contrast. A dose low ering technique was utilized adhering to the principles of ALARA. FINDINGS: Straightening of the normal cervical lordosis. Prominent osteophytic spurring with posterio r disc osteophyte complex formations, largest at the C5-C6 level resulting in severe central canal st enosis. Additional multilevel central canal or neural foraminal narrowing, suboptimally assessed by C T technique. Moderate multilevel facet arthrosis. No acute cervical spine fracture or subluxation cheko ntified. The cervical soft tissues appear unremarkable. Polypoid mucosal thickening of the left maxillary sinu s is partially imaged. The visualized lung apices appear clear. IMPRESSION: No acute cervical spine fracture or subluxation identified. ACT 112: Negative or not required by law. The above report was generated using voice recognition software. It may contain grammatical, syntax o r spelling errors. Electronically signed by: Erwin Gomez M.D. 07/18/2022 5:49 PM
--- NOTE | 2022-07-18 17:59 | CT Scan Report ---
CT chest diagnostic wo con CT DOSE: 3335.02 mGy.cm HISTORY: Atypical chest pain. Fall. fall hypotension TECHNIQUE: Multiaxial CT images of the chest were performed without contrast. A dose lowering techni que was utilized adhering to the principles of ALARA. COMPARISON: Abdomen and pelvis CT 03/27/2014.. FINDINGS: No acute fractures identified within the chest. Old, healed left lower rib fractures are no farrah. There is an old nonunited right posterior 11th rib fracture. The abdominal structures will be re ported in the same day abdomen and pelvis CT. Normal thyroid gland. No mediastinal hematoma. Increase in size in a 1 cm anterior pericardial lymph node. This previously measured 5 mm. Small fat-containi ng hiatal hernia is noted cirrhotic liver with splenomegaly and ascites. No pleural or pericardial ef fusions. Normal caliber esophagus. Mild calcified plaque within the normal caliber thoracic aorta. Th e heart is normal in size. No pneumothorax. There is mild bronchial wall thickening. There is mild em physema. Stable 6 mm nodule within the base of the left lower lobe on image 251. This is likely benig n given the long-term stability. Nodular thickening along left major fissure with a punctate calcific ation is likely benign. There is a 2 mm nodule within the right lung apex on image 42. Partially calc ified lobular density within the right lung base which has slightly increased in size in the interval . This results in areas of retraction of the right lung base. This may represent a calcified pleural plaque with associated scarring of the right lung base. However, the 3.3 x 2.2 cm lobular density in image 249 has slightly progressed. This previously measured 2.7 x 1.8 cm. IMPRESSION: 1. No acute traumatic process within the chest. 2. Partially calcified lobular density within the right lung base which has slightly increased in siz e in the interval. This results in areas of retraction of the right lung base. This may represent a c alcified pleural plaque with associated scarring of the right lung base. However, the 3.3 x 2.2 cm lo bular density at the right lung base has slightly progressed. This previously measured 2.7 x 1.8 cm. Therefore, [address] follow-up recommended to ensure stability. 3. Emphysema. 4. Cirrhotic liver and ascites are better appreciated on the same day abdomen and pelvis CT. ACT 112: Positive. There are findings on this exam that require communication between the performing entity and the patient following Patient Test Result Information Act ([place] Act 112) guidelines. Electronically signed by: José Miguel Maloney M.D. 07/18/2022 5:56 PM
--- NOTE | 2022-07-18 18:01 | CT Scan Report ---
ABDOMEN AND PELVIS CT WITHOUT CONTRAST HISTORY: Acute generalized abdominal pain status post fall abd pain TECHNIQUE: Multiaxial CT images of the abdomen and pelvis were performed without contrast. A dose lo wering technique was utilized adhering to the principles of ALARA. COMPARISON STUDY: Chest CT of same day, CT abdomen and pelvis 03/27/2014 FINDINGS: Mild linear subsegmental atelectasis of the right lower lobe. No pneumatosis or pneumoperit oneum. The study is degraded by respiratory motion artifact. The unenhanced spleen is enlarged measur ing 15 cm in length. Moderately dystrophic pancreas. Mild thickening of the left greater than right a drenal glands similar prior suggestive of hyperplasia. Cirrhotic liver. No hepatic mass identified. C ontracted gallbladder with cholelithiasis. 8 mm cortical calcification of the superior pole right kidney. 4 mm nonobstructing calculus of the in ferior pole left kidney. No ureteral calculi or hydronephrosis. Partial distention of the urinary haresh dder. Mild prostamegaly. Small fat filled inguinal hernias. Atherosclerosis of the aorta with fusifor m infrarenal images and dilation, 3.2 x 2.8 cm. No lymphadenopathy identified. Small hiatal hernia. Mild wall thickening of the distal stomach may be secondary to partial distentio n. Recanalization of the umbilical vein. Moderate abdominal ascites with abdominal varicosities. Circ umferential wall thickening of the rectum with perirectal stranding. Colonic diverticulosis. Wall thi ckening of the descending and sigmoid colon. Postoperative changes of partial right hemicolectomy. Mi ld twisting of the central mesentery with nonobstructive bowel gas pattern. Mild generalized body wal l edema. 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 Possible acute nondisplaced fract ure of the posterior left 12th rib. Degenerative changes of the spine, pelvis and hips. L5-S1 posteri or disc osteophyte complex formation. IMPRESSION: 1. No acute posttraumatic intra-abdominal or intrapelvic abnormality identified. 2. Equivocal acute nondisplaced fracture of the posterior left 12th rib. Correlate with point tendern ess. 3. Cirrhosis with evidence of portal venous hypertension including splenomegaly with moderate abdomin al pelvic ascites. 4. Mild wall thickening of the distal colon and rectum may be secondary to a nonspecific proctocoliti s versus portal colopathy. 5. Postoperative changes of right hemicolectomy. 6. Cholelithiasis. 7. Bilateral renal calcifications. No hydronephrosis. 8. Additional findings as above. ACT 112: Negative or not required by law. The above report was generated using voice recognition software. It may contain grammatical, syntax o r spelling errors. Electronically signed by: Erwin Gomez M.D. 07/18/2022 5:59 PM
[2022-07-18] MEDS ORDERED: SODIUM CHLORIDE 0.9% 1000ML 1,000 ML IV ONE (18:05)
[2022-07-18] MEDS ORDERED: CEFEPIME 2,000 MG/20 ML VIAL IV STA (18:06)
[2022-07-18] MEDS ORDERED: ALBUMIN 25% 100 mL 25 GM/100 ML VIAL IV ONE (18:10)
--- NOTE | 2022-07-18 18:38 | History & Physical Report ---
Date of Service July 18, 2022 Assessment & Plan (1) Spontaneous bacterial peritonitis: Plan: Diagnosis of exclusion - new hypotension with generalized abdominal pain Will get paracentesis in the AM hopefully once his BP is better off lisinopril Albumin 100g IV Switch cefepime to Zosyn Follow up blood cultures (2) Cellulitis: Plan: Possible diagnosis of lower abdomen although appearance is more suggestive of friction from being on the ground given color and lack of warmth Continue to monitor for resolution Continue antibiotics as above Follow up blood cultures (3) Acute hypotension: Plan: ?secondary to SBP as above vs. chronic decompensated cirrhosis vs. cellulitis (appearance more consistent with friction from his fall than cellulitis of lower abdomen given dark appearance and lack of warmth) Start midodrine for hypotension Consider transfer to ICU if MAP < 65 (4) Fall: Plan: Rib fracture as a result of the fall - incentive spirometer I suspect this was a result of his bilateral leg edema making him weak No lateralizing weakness suggestive of an acute stroke and CT head without acute intracranial pathology. (5) Liver cirrhosis: Plan: Unclear cause or if this has ever been worked up Will send ascitic fluid for cytology given extensive cancer history Consult [facility] gastroenterology INR 1.5 -> will given vitamin K 5mg IV to see how reversible this is due to deficiency vs. liver cirrhosis. Plt normal. (6) Bilateral leg edema: Plan: R > L therefore will get US venous doppler to assess for DVT on right side. Suspect secondary to liver cirrhosis as above Given hypotension will avoid diuretics on admission (7) ANDRES (acute kidney injury): Plan: Concerning for hepatorenal syndrome. Should improve with improvement in his BP with midodrine as above. UA pending on admission (8) Weakness: Plan: Multifactorial with possible infection, liver cirrhosis, renal failure B12 level for peripheral neuropathy PT/OT (9) Type I diabetes mellitus, well controlled: Plan: HbA1C 6.3 in February 2022 Usually takes Lantus 32 units at night and NovoLog 12 units 3 times daily Glucose 84 on admission therefore decrease Lantus to 16 units HS Novolog: --Goal BSG Range: Low 110 mg/dL, High 140 mg/dL --Correction Factor: 20 mg/dL/unit --Carbohydrate ratio = 7 g/unit --BSGs ACHS if eating, q6h if npo Consult pharmacy for glycemic control for ongoing dosing Plan VTE Prophylaxis - deferred on admission due to pending US venous doppler and paracentesis planned for tomorrow Diet - low Na, T1DM Disposition - admit to PCU Admission and Anticipated Discharge Date Admission Date: July 18, 2022 History of Present Illness Chief Complaint: Hypotension, fall Primary Care Provider: Rosalva Bravo MD Pasha Holloway is a 72 year old male who presents to the ER from [facility] via EMS for hypotension 70/35 at the office. He reports feeling dizzy lightheaded for the last month which may have contributed towards him falling yesterday although thinks this was more due to bilateral leg weakness that has been ongoing for years. While walking to the bathroom he put his hands on the sink and his legs gave way. He spent 3 hours on the floor initially unable to move. He spent another 2 hours getting himself back to bed. He denies any chest pain or shortness of breath prior to falling but reportedly has some chest pain and palpitations after falling. His sister drove him to the PCP office today where he was noted to have a blood pressure of 70/35 therefore was advised to go to the ER via EMS. Difficult to get a clear history timeline from the patient. He reports feeling generally unwell for the last 3 days with chills but no objective fever. No urinary or upper respiratory symptoms. He reports his abdomen has been distended for years with increasing leg edema. Although increased abdominal girth was noted is a new problem during his PCP February 2022 visit. No mention of liver cirrhosis/ascites on previous gastroenterology note. He notes generalized abdominal pain but finds it difficult to give me a timeline on this but possible also just the last 3 days. He reports the erythema on his lower abdomen - again unclear how long this has been going on. Allergies Allergy/AdvReac Type Severity Reaction Status Date / Time No Known Allergies Allergy Verified 07/18/22 14:26 Home Medications Medication Instructions Recorded Confirmed Type multivitamin 1 tab PO QPM 01/26/19 07/18/22 History lancets 33 gauge (OneTouch Delica #100 ea 06/27/21 07/18/22 History Lancets) lisinopril 20 mg tablet 20 mg PO QPM 10/01/21 07/18/22 History OneTouch Verio test strips (blood #300 ea 02/06/22 07/18/22 Rx sugar diagnostic) pen needle, diabetic 32 gauge x #500 ea 02/06/22 07/18/22 Rx 5/32" (BD Ultra-Fine Pascale Pen Needle) aspirin 81 mg tablet,delayed 81 mg PO DAILY 07/18/22 07/18/22 History release atorvastatin 40 mg tablet 40 mg PO HS 07/18/22 07/18/22 History insulin aspart U-100 100 unit/mL 12 unit subcut TID 07/18/22 07/18/22 History (3 mL) subcutaneous pen (Novolog FlexPen U-100 Insulin aspart) insulin glargine 100 unit/mL (3 32 unit subcut HS 07/18/22 07/18/22 History mL) subcutaneous pen (Basaglar KwikPen U-100 Insulin) levothyroxine 88 mcg tablet 88 mcg PO QAM 07/18/22 07/18/22 History liraglutide 0.6 mg/0.1 mL (18 mg/3 1.8 mg subcut DAILY 07/18/22 07/18/22 History mL) subcutaneous pen injector (SeniorSourcetoza 3-Joshua) omeprazole 40 mg capsule,delayed 40 mg PO DAILY 07/18/22 07/18/22 History release Past Med/Surg History Medical History Henry's esophagus BCC (basal cell carcinoma of skin) Bilateral nephrolithiasis Diabetes mellitus, type 2 Esophageal adenocarcinoma Gallstones GERD (gastroesophageal reflux disease) History of colon cancer History of eye cancer Hyperlipidemia Hypertension Hypothyroidism Inguinal hernia, bilateral Melanoma Nonalcoholic fatty liver disease Rib fracture SCC (squamous cell carcinoma) Surgical History H/O colonoscopy H/O eye surgery H/O right hemicolectomy History of esophagogastroduodenoscopy (EGD) History of left cataract surgery History of surgery on arm History of tooth extraction Family History Mother Diabetes Father Diabetes Other Hyperlipidemia No family history of adverse response to anesthesia Stroke Denies family history of Ovarian cancer Prostate cancer Breast cancer Colorectal cancer Social History Smoking Status: Former smoker Age Started Using Tobacco: 11; Age Quit Using Tobacco: 62; packs per day: 1.5; Cigarettes Per Day: 7 YEARS AGO; Second Hand Exposure: Yes; Do You Dip or Chew Tobacco: No; Tobacco Cessation Education Requested by Patient: No Hx Alcohol Use: No Hx Substance Use: No Preferred Language: Georgian Communication Ability: Effective Hearing Ability: Normal Knitted Garment Finisher Required: No Beliefs That Will Affect Care: None marital status: / Current Living Situation: Alone current occupational status: retired Other Information That Helps Us Care for You: No Feels Safe at Home: Yes Safety Concerns: Feels Safe At This Time Seatbelt Use: always Sunscreen Use: Yes Assistive Devices: Cane, Denture - Upper and Denture - Lower Review of Systems Review of Systems: All systems reviewed & are unremarkable except as noted in HPI & below 1 month numbness in peripheral neuropathy distribution Bilateral leg weakness 4/5th right finger numbness Physical Exam Constitutional: WD/WN, vitals as above Eyes: PERRL, conjunctivae normal, anicteric sclerae ENMT: external ear and nose normal, oropharynx normal Respiratory: normal respiratory effort, lungs clear to auscultation Cardiovascular: Rate/Rhythm: regular rate and regular rhythm Heart Sounds: no murmur Extremities: normal capillary refill and + pedal edema (3+ pedal edema R > L); no calf tenderness Gastrointestinal (Abdomen): Inspection/Auscultation: + abdomen distended, normal bowel sounds and + abdominal edema Percussion/Palpation: + abdomen tender (generalized); no guarding, abdomen not rigid and + abdomen not soft Skin: + erythema (lower abdomen dark erythema without warmth) Neurologic: awake; not confused Motor/Sensory: + sensory deficit (bilateral feet) Genitourinary: no CVA tenderness Results & Data Results & Data ([facility]) Vital Signs (Past 12 Hours) Vital Signs Temp Pulse Pulse BP BP Pulse Ox O2 Del Method 07/18/22 18:34 95 H 84/65 L 93 Room Air 07/18/22 18:02 91 H 73/55 L 93 Room Air 07/18/22 17:48 90 97/62 L 93 Room Air 07/18/22 17:48 93 Room Air 07/18/22 16:43 97 H 88/53 L 95 Room Air 07/18/22 16:29 92 H 07/18/22 16:00 94 H 92/51 L 94 07/18/22 16:00 Room Air 07/18/22 15:51 36.4 C L 92 H 92/51 L 98 Room Air Laboratory Results Abnormal lab results 07/18/22 07/18/22 07/18/22 Range/Units 16:16 16:30 16:30 WBC 13.34 H (4.8-10.8) K/ul RBC 3.37 L (4.70-6.10) M/uL Hgb 10.6 L (14.0-18.0) g/dl POC Hgb 12.2 L (14.0-18.0) g/dl Hct 33.1 L (42.0-52.0) % POC Hct 36 L (42-52) % RDW Std Deviation 50.8 H (36.4-46.3) fL Neut # (Auto) 10.96 H (1.40-6.50) K/uL Lymph # (Auto) 0.84 L (1.2-3.4) K/uL [place] # (Auto) 1.41 H (0.11-0.59) K/uL PT (9.0-12.0) Seconds INR (0.9-1.1) APTT (21.0-31.0) Seconds Chloride 108 H (98-107) mmol/L POC Anion Gap 14.0 L (16-25) mmol/L POC BUN 34 H (7-18) mg/dl BUN 34 H (6-23) mg/dl Creatinine 1.91 H (0.6-1.4) mg/dl POC Creatinine 2.1 H (0.6-1.3) mg/dl POC Glucose (70-99) mg/dl Calcium 8.4 L (8.5-10.1) mg/dl POC Ioniz Calcium Bam 1.06 L (1.12-1.32) mmol/l Total Bilirubin 1.5 H (0.2-1.0) mg/dl Direct Bilirubin 0.6 H (0-0.2) mg/dl AST 86 H (13-39) U/L ALT 58 H (7-52) U/L Alkaline Phosphatase 174 H (34-104) U/L Total Creatine Kinase 680 H (30-223) U/L Albumin 2.4 L (3.4-5.0) gm/dl Procalcitonin (0-0.5) ng/ml Urine Appearance (Clear) Urine Protein (Negative) Urine Ketones (Negative) Urine Nitrite (Negative) Urine Bilirubin (Negative) Ur Leukocyte Esterase (Negative) Urine WBC (Auto) (0-5) /hpf Urine RBC (Auto) (0-4) /hpf U Hyaline Cast (Auto) (0-5) /lpf U Epithel Cells (Auto) (0-5) /lpf Urine Bacteria (Auto) (Negative) 07/18/22 07/18/22 07/18/22 Range/Units 16:30 16:30 22:22 WBC (4.8-10.8) K/ul RBC (4.70-6.10) M/uL Hgb (14.0-18.0) g/dl POC Hgb (14.0-18.0) g/dl Hct (42.0-52.0) % POC Hct (42-52) % RDW Std Deviation (36.4-46.3) fL Neut # (Auto) (1.40-6.50) K/uL Lymph # (Auto) (1.2-3.4) K/uL [place] # (Auto) (0.11-0.59) K/uL PT 15.4 H (9.0-12.0) Seconds INR 1.5 H (0.9-1.1) APTT 31.8 H (21.0-31.0) Seconds Chloride (98-107) mmol/L POC Anion Gap (16-25) mmol/L POC BUN (7-18) mg/dl BUN (6-23) mg/dl Creatinine (0.6-1.4) mg/dl POC Creatinine (0.6-1.3) mg/dl POC Glucose 101 H (70-99) mg/dl Calcium (8.5-10.1) mg/dl POC Ioniz Calcium Bam (1.12-1.32) mmol/l Total Bilirubin (0.2-1.0) mg/dl Direct Bilirubin (0-0.2) mg/dl AST (13-39) U/L ALT (7-52) U/L Alkaline Phosphatase (34-104) U/L Total Creatine Kinase (30-223) U/L Albumin (3.4-5.0) gm/dl Procalcitonin 0.78 H (0-0.5) ng/ml Urine Appearance (Clear) Urine Protein (Negative) Urine Ketones (Negative) Urine Nitrite (Negative) Urine Bilirubin (Negative) Ur Leukocyte Esterase (Negative) Urine WBC (Auto) (0-5) /hpf Urine RBC (Auto) (0-4) /hpf U Hyaline Cast (Auto) (0-5) /lpf U Epithel Cells (Auto) (0-5) /lpf Urine Bacteria (Auto) (Negative) 07/18/22 Range/Units 22:25 WBC (4.8-10.8) K/ul RBC (4.70-6.10) M/uL Hgb (14.0-18.0) g/dl POC Hgb (14.0-18.0) g/dl Hct (42.0-52.0) % POC Hct (42-52) % RDW Std Deviation (36.4-46.3) fL Neut # (Auto) (1.40-6.50) K/uL Lymph # (Auto) (1.2-3.4) K/uL [place] # (Auto) (0.11-0.59) K/uL PT (9.0-12.0) Seconds INR (0.9-1.1) APTT (21.0-31.0) Seconds Chloride (98-107) mmol/L POC Anion Gap (16-25) mmol/L POC BUN (7-18) mg/dl BUN (6-23) mg/dl Creatinine (0.6-1.4) mg/dl POC Creatinine (0.6-1.3) mg/dl POC Glucose (70-99) mg/dl Calcium (8.5-10.1) mg/dl POC Ioniz Calcium Bam (1.12-1.32) mmol/l Total Bilirubin (0.2-1.0) mg/dl Direct Bilirubin (0-0.2) mg/dl AST (13-39) U/L ALT (7-52) U/L Alkaline Phosphatase (34-104) U/L Total Creatine Kinase (30-223) U/L Albumin (3.4-5.0) gm/dl Procalcitonin (0-0.5) ng/ml Urine Appearance Cloudy A (Clear) Urine Protein 1+ H (Negative) Urine Ketones Trace H (Negative) Urine Nitrite Positive A (Negative) Urine Bilirubin 1+ H (Negative) Ur Leukocyte Esterase 1+ H (Negative) Urine WBC (Auto) 5-10 H (0-5) /hpf Urine RBC (Auto) 5-10 H (0-4) /hpf U Hyaline Cast (Auto) >30 H (0-5) /lpf U Epithel Cells (Auto) 10-20 H (0-5) /lpf Urine Bacteria (Auto) 1+ H (Negative) Diagnostic Findings HEAD CT NONCONTRAST CT DOSE: HISTORY: Headache. Dizziness. TECHNIQUE: Multiaxial CT images of the head were performed without the use of intravenous contrast. Automated exposure control was utilized for this study. A dose lowering technique was utilized adhering to the principles of ALARA. Comparison: None. Findings: There is a 1.5 cm retention cyst within the left maxillary sinus. The mastoid air cells are clear. The calvarium and skull base are intact. There is no mass, hematoma, midline shift, acute infarct. White matter hypodensity is nonspecific but suggestive of microvascular ischemic change. The ventricles and sulci demonstrate mild age-related involutional changes. Impression: No acute intracranial abnormality. Atrophy and microvascular ischemic changes. CT cervical spine wo con CLINICAL HISTORY: 72 years-old Male with fall. Acute head and neck injury status post fall COMPARISON: Head CT of same day TECHNIQUE: Multiple axial CT images of the cervical spine were obtained without contrast. A dose lowering technique was utilized adhering to the principles of ALARA. FINDINGS: Straightening of the normal cervical lordosis. Prominent osteophytic spurring with posterior disc osteophyte complex formations, largest at the C5-C6 level resulting in severe central canal stenosis. Additional multilevel central canal or neural foraminal narrowing, suboptimally assessed by CT technique. Moderate multilevel facet arthrosis. No acute cervical spine fracture or subluxation identified. The cervical soft tissues appear unremarkable. Polypoid mucosal thickening of the left maxillary sinus is partially imaged. The visualized lung apices appear clear. IMPRESSION: No acute cervical spine fracture or subluxation identified. XR chest 1V portable HISTORY: 72 years-old Male Sepsis acute sepsis COMPARISON: Chest radiograph 04/01/2014 TECHNIQUE: AP view of the chest FINDINGS: Cardiac mediastinal and hilar silhouettes are within normal limits. No pneumothorax, pleural effusion, airspace consolidation or overt pulmonary edema. Degenerative changes of the shoulders and spine. IMPRESSION: No acute process. CT chest diagnostic wo con CT DOSE: 3335.02 mGy.cm HISTORY: Atypical chest pain. Fall. fall hypotension TECHNIQUE: Multiaxial CT images of the chest were performed without contrast. A dose lowering technique was utilized adhering to the principles of ALARA. COMPARISON: Abdomen and pelvis CT 03/27/2014.. FINDINGS: No acute fractures identified within the chest. Old, healed left lower rib fractures are noted. There is an old nonunited right posterior 11th rib fracture. The abdominal structures will be reported in the same day abdomen and pelvis CT. Normal thyroid gland. No mediastinal hematoma. Increase in size in a 1 cm anterior pericardial lymph node. This previously measured 5 mm. Small fat- containing hiatal hernia is noted cirrhotic liver with splenomegaly and ascites. No pleural or pericardial effusions. Normal caliber esophagus. Mild calcified plaque within the normal caliber thoracic aorta. The heart is normal in size. No pneumothorax. There is mild bronchial wall thickening. There is mild emphysema. Stable 6 mm nodule within the base of the left lower lobe on image 251. This is likely benign given the long-term stability. Nodular thickening along left major fissure with a punctate calcification is likely benign. There is a 2 mm nodule within the right lung apex on image 42. Partially calcified lobular density within the right lung base which has slightly increased in size in the interval. This results in areas of retraction of the right lung base. This may represent a calcified pleural plaque with associated scarring of the right lung base. However, the 3.3 x 2.2 cm lobular density in image 249 has slightly progressed. This previously measured 2.7 x 1.8 cm. IMPRESSION: 1. No acute traumatic process within the chest. 2. Partially calcified lobular density within the right lung base which has slightly increased in size in the interval. This results in areas of retraction of the right lung base. This may represent a calcified pleural plaque with associated scarring of the right lung base. However, the 3.3 x 2.2 cm lobular density at the right lung base has slightly progressed. This previously measured 2.7 x 1.8 cm. Therefore, [address] follow-up recommended to ensure stability. 3. Emphysema. 4. Cirrhotic liver and ascites are better appreciated on the same day abdomen and pelvis CT. ABDOMEN AND PELVIS CT WITHOUT CONTRAST HISTORY: Acute generalized abdominal pain status post fall abd pain TECHNIQUE: Multiaxial CT images of the abdomen and pelvis were performed without contrast. A dose lowering technique was utilized adhering to the principles of ALARA. COMPARISON STUDY: Chest CT of same day, CT abdomen and pelvis 03/27/2014 FINDINGS: Mild linear subsegmental atelectasis of the right lower lobe. No pneumatosis or pneumoperitoneum. The study is degraded by respiratory motion artifact. The unenhanced spleen is enlarged measuring 15 cm in length. Moderately dystrophic pancreas. Mild thickening of the left greater than right adrenal glands similar prior suggestive of hyperplasia. Cirrhotic liver. No hepatic mass identified. Contracted gallbladder with cholelithiasis. 8 mm cortical calcification of the superior pole right kidney. 4 mm nonobstructing calculus of the inferior pole left kidney. No ureteral calculi or hydronephrosis. Partial distention of the urinary bladder. Mild prostamegaly. Small fat filled inguinal hernias. Atherosclerosis of the aorta with fusiform infrarenal images and dilation, 3.2 x 2.8 cm. No lymphadenopathy identified. Small hiatal hernia. Mild wall thickening of the distal stomach may be secondary to partial distention. Recanalization of the umbilical vein. Moderate abdominal ascites with abdominal varicosities. Circumferential wall thickening of the rectum with perirectal stranding. Colonic diverticulosis. Wall thickening of the descending and sigmoid colon. Postoperative changes of partial right hemicolectomy. Mild twisting of the central mesentery with nonobstructive bowel gas pattern. Mild generalized body wall edema. 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 Possible acute nondisplaced fracture of the posterior left 12th rib. Degenerative changes of the spine, pelvis and hips. L5-S1 posterior disc osteophyte complex formation. IMPRESSION: 1. No acute posttraumatic intra-abdominal or intrapelvic abnormality identified. 2. Equivocal acute nondisplaced fracture of the posterior left 12th rib. Correlate with point tenderness. 3. Cirrhosis with evidence of portal venous hypertension including splenomegaly with moderate abdominal pelvic ascites. 4. Mild wall thickening of the distal colon and rectum may be secondary to a nonspecific proctocolitis versus portal colopathy. 5. Postoperative changes of right hemicolectomy. 6. Cholelithiasis. 7. Bilateral renal calcifications. No hydronephrosis. 8. Additional findings as above. Medications Administered ER medications given: NSS 1L bolus Cefepime 2g IV Albumin 25g IV ECG Additional Comments: Not yet taken Code Status & VTE Plan Code Status Full VTE Prophylaxis Plan VTE Prophylaxis will be ordered: No PG Care Time/CCT Total # of Minutes Spent Total Time Spent with Patient: Total time spent is greater than 50% in coordination of care (as documented) at patient's floor/unit and/or counseling patient: Coding Level of Care Code 51567 INT INP/OBS CARE 3/75MIN Diagnoses Spontaneous bacterial peritonitis K65.2 Cellulitis L03.90 Acute hypotension I95.9 Fall W19.XXXA Liver cirrhosis K74.60 Bilateral leg edema R60.0 ANDRES (acute kidney injury) N17.9 Weakness R53.1 Type I diabetes mellitus, well controlled E10.9
[2022-07-18] MEDS ORDERED: MIDODRINE HCL 2.5 MG TAB PO STA (18:46)
[2022-07-18] MEDS ORDERED: ALBUMIN 25% 100 mL 25 GM/100 ML VIAL IV SCH (19:15)
[2022-07-18] MEDS: ALBUMIN 25% 100 mL 25 GM/100 ML VIAL IV SCH ×2 (20:17→22:20)
[2022-07-18 20:22] LABS: INR 1.5 (0.9-1.1); Partial Thromboplastin Ratio 1.2; Partial Thromboplastin Time 31.8 Seconds (21.0-31.0); Prothrombin Time 15.4 Seconds (9.0-12.0)
[2022-07-18] MEDS ORDERED: GLUCOSE 40% GEL 15 GM TUBE PO PRN (21:43)
[2022-07-18] MEDS ORDERED: PHARMACY GLYCEMIC MGMT CONSULT PRN (21:43)
[2022-07-18] MEDS ORDERED: CARBOHYDRATES FOR HYPOGLYCEMIA PO PRN (21:43)
[2022-07-18] MEDS ORDERED: GLUCAGON FOR INJ 1 MG VIAL SQ PRN (21:43)
[2022-07-18] MEDS ORDERED: LANTUS PER UNIT CHARGE SQ SCH (21:43)
[2022-07-18] MEDS ORDERED: GLUCOSE 10 TAB/TUBE PO PRN (21:43)
[2022-07-18] MEDS ORDERED: DEXTROSE 50% 50 ML SYRINGE IV PRN (21:43)
[2022-07-18] MEDS ORDERED: PHYTONADIONE 5 MG in DEXTROSE 5% 50 ML IV ONE (22:15)
[2022-07-18] MEDS: INSULIN ASPART PER UNIT SC SCH (23:01)
[2022-07-18 23:12] LABS: Appearance Urine Cloudy (Clear); Blood Urine Negative (Negative); Color Urine Orange; Glucose Urine UA Negative (Negative); Ketones Urine Trace (Negative); Leukocyte Esterase Urine 1+ (Negative); Nitrite Urine Positive (Negative); Protein Urine 1+ (Negative); Specific Gravity Urine 1.023 (1.000-1.030); Urobilinogen Urine Negative (Negative)
[2022-07-18 23:13] LABS: Bilirubin Urine 1+ (Negative)
[2022-07-18] MEDS: ATORVASTATIN 40 MG TAB PO SCH (23:14)
[2022-07-18 23:21] LABS: Cast Urine Automated >30 /lpf (0-5)
[2022-07-18 23:22] LABS: Bacteria Urine Automated 1+ (Negative)
[2022-07-19] MEDS ORDERED: PIPERACILLIN/TAZOBACTAM 4.5 GM in DEXTROSE 5% 100 ML IV STA (00:51)
[2022-07-19] MEDS: ALBUMIN 25% 100 mL 25 GM/100 ML VIAL IV SCH (01:14)
[2022-07-19] MEDS ORDERED: CEFEPIME 2,000 MG in SYRINGE 0 ML IV SCH (06:00)
[2022-07-19] MEDS: LEVOTHYROXINE SODIUM 88 MCG TABLET PO SCH (06:20)
[2022-07-19] MEDS: PIPERACILLIN/TAZOBACTAM 4.5 GM in DEXTROSE 5% 100 ML IV SCH ×3 (06:20→21:33)
--- NOTE | 2022-07-19 06:33 | Ultrasound Report ---
US venous doppler LE RT HISTORY: 72 years-old Male right leg swelling acute pain and swelling of the right lower extremity COMPARISON: None TECHNIQUE: Multiple real-time sonographic images of the right lower extremity deep venous structures were obtained assessing grayscale appearance, color and spectral flow. Subcutaneous edema. FINDINGS: Normal flow, compressibility, phasicity and augmentation. IMPRESSION: No sonographic evidence of deep venous thrombosis. ACT 112: Negative or not required by law. The above report was generated using voice recognition software. It may contain grammatical, syntax o r spelling errors. Electronically signed by: Erwin Gomez M.D. 07/19/2022 6:32 AM
[2022-07-19 06:43] LABS: Basophils # (auto) 0.03 K/uL (0-0.2); Basophils % (auto) 0.3 %; Eosinophils # (auto) 0.06 K/uL (0-0.50); Eosinophils % (auto) 0.6 %; Immature Granulocytes # (auto) 0.05 K/uL (0.01-0.20); Immature Granulocytes % (auto) 0.5 %; Lymphocytes # (auto) 0.64 K/uL (1.2-3.4); Lymphocytes % (auto) 6.8 %; Mean Corpuscular Hemoglobin 31.6 pg (25.0-34.0); Mean Corpuscular Hgb Conc 32.1 g/dL (32.0-36.0); Mean Corpuscular Volume 98.2 fL (80.0-100.0); Mean Platelet Volume 9.4 fL (9.4-12.4); Monocytes # (auto) 1.17 K/uL (0.11-0.59); Monocytes % (auto) 12.5 %; Neutrophils # (auto) 7.42 K/uL (1.40-6.50); Neutrophils % (auto) 79.3 %; Platelet Count 183 K/uL (130-400); RDW Standard Deviation 50.3 fL (36.4-46.3); Red Blood Count 2.85 M/uL (4.70-6.10); White Blood Count 9.37 K/ul (4.8-10.8)
[2022-07-19 06:59] LABS: INR 1.6 (0.9-1.1); Prothrombin Time 16.4 Seconds (9.0-12.0)
[2022-07-19 07:03] LABS: Bilirubin,Total 1.4 mg/dl (0.2-1.0); Calcium 8.3 mg/dl (8.5-10.1); Potassium 4.7 mmol/L (3.5-5.1)
[2022-07-19 07:05] LABS: Estimated Average Glucose 123 mg/dl; Hemoglobin A1C 5.9 % (4.5-5.6)
[2022-07-19 07:10] LABS: Albumin Globulin Ratio 0.9 (0.9-2); BUN Creatinine Ratio 20.7 (10-20); Creatinine Clr Calc Pharmacy 41.6 ml/min; Est GFR (African American) 38.9 ml/min; Est GFR (Non-African American) 33.6 ml/min; Globulin 3.2 gm/dl (2.5-4.0); Total Protein 6.2 gm/dl (6.0-8.3)
[2022-07-19] MEDS: PANTOprazole 40 MG TAB PO SCH (07:43)
[2022-07-19] MEDS: MIDODRINE HCL 2.5 MG TAB PO SCH ×3 (07:43→18:11)
[2022-07-19] MEDS: INSULIN ASPART PER UNIT SC SCH ×4 (08:38→21:22)
[2022-07-19] MEDS ORDERED: LANTUS PER UNIT CHARGE SQ ONE (09:15)
[2022-07-19] MEDS ORDERED: ALBUMIN HUMAN 25% 12.5 GM/50 ML VIAL IV ONE (10:09)
--- NOTE | 2022-07-19 10:38 | Pharmacy Report ---
Pharmacy Glycemic Short Note 2 - Date of Service July 19, 2022 - Glycemic Short BSG Results (Last 24 hours): 07/18/22 07/18/22 07/18/22 16:16 16:30 22:22 Glucose 84 POC Glucose 101 H POC Glucose (other) 81 07/19/22 07/19/22 06:22 07:18 Glucose 121 H POC Glucose 120 H POC Glucose (other) OUTPATIENT ANTIDIABETIC REGIMEN: * Basaglar 32 units HS * Novolog 12 units TID HbA1C: 5.9% (07/19/22) ASSESSMENT: * Patient is a 72 YOM, type 1 diabetic, admitted with spontaneous bacterial peritonitis. Pharmacy consulted to assist with glycemic management. * BSGs [phone]/dL since admission. Per patient - he has not been eating for several days and did not take his insulin at all yesterday. * Diet ordered - did tolerate breakfast this AM per RN. On IV antibiotics, and has an ANDRES. * Given patient is a type 1 diabetic, will give a small dose of basal insulin this AM, 5 units, given BSG on the lower end and has not been tolerating PO. Novolog parameters loosened for now given decreased PO. Will titrate based on intake and BSG trend. PLAN FOR INPATIENT GLYCEMIC CONTROL: * Hold outpatient oral diabetes medications * Basal insulin * Lantus 5 units SQ X 1 * Bolus insulin * NovoLog per scale ACHS or Q6hrs while NPO * Goal Range: Low 110 mg/dL - High 140 mg/dL * Correction Factor: 35 mg/dL/unit * Nutritional / Prandial insulin per carb ratio of 1 unit per 11 grams CHO consumed
[2022-07-19] MEDS: ALBUMIN 25% 25 GM/100 ML VIAL IV SCH ×2 (10:40→12:39)
--- NOTE | 2022-07-19 11:54 | Gastrointestinal Consultation ---
Date of Consultation July 19, 2022 Assessment & Plan (1) Liver cirrhosis: (2) Spontaneous bacterial peritonitis: Patient is a 72 years old male with past medical history including colon cancer status postresection, melanoma with metastasis status post neck resection and parotidectomy, Henry's esophagus with esophageal adenocarcinoma who presented with hypotension, lightheadedness and dizziness, falls, noted to have abdominal ascites, edema, CT abdomen pelvis with new findings of cirrhosis and sequela of portal hypertension ? related to NAFLD vs ETOH. Given his presentation of leukocytosis, new ascites and abdominal pain during admission he was suspected to may have SBP and started on albumin support as well as Zosyn IV. MELD 19. - Liver doppler to r/o PVT - US paracentesis w fluid analysis including cell ct, protein, albumin (to calculate SAAG), culture. Replete with Albumin 25% 50g (pre/post paracentesis) - Continue IV antibiotics - Day 3 of admission, give Albumin 25% 1g/kg - When kidney function normalize, add diuretics: Lasix 40mg + Spironolactone 100mg daily. Monitor renal function and electrolytes closely after diuretics started - Consider Midodrine if BP remains low - 2g Na diet; no APAP >2 a day; avoid ETOH - Will arrange OP Hepatology f/u after his DC for cirrhosis management Supervising Physician Co-Signing Physician Notes I saw and evaluated the patient. We were consulted for new onset ascites. Patient has a fairly complex history and is followed by one of my partners as an outpatient for Henry's esophagus. The patient has comorbid problems to include history of colonic cancer, melanoma and Henry's esophagus with dysplasia. Physical examination No obvious distress Obese male Fluid wave noted Impression patient with new onset ascites, fluid: Analysis is still pending, we are awaiting cytology to ensure he does not have malignant ascites. Based on the history the patient likely has fatty infiltration of the liver resulting in cirrhosis. Would recommend albumin on day 1 and day 3 after his paracentesis and continued antibiotic coverage for total of 5 days. Recommendations Albumin today and on day 3 Continue antibiotic coverage Low-sodium diet Await paracentesis results Please call with questions or concerns over the weekend otherwise coverage to resume on Friday History of Present Illness Reason for Consultation: SBP, cirrhosis Requesting Physician: Dr. Rocky De Anda Attending Physician: Dr. Kim Mays History of Present Illness Patient is a 72 years old male with past medical history including colon cancer status postresection, melanoma with metastasis status post neck resection and parotidectomy, Henry's esophagus with esophageal adenocarcinoma who was brought to the ER via EMS from PCPs office after noted to be hypotensive with blood pressure 70 over 30s and symptoms of lightheadedness, dizziness, falling in the last month. He also reports associated symptoms of chills but no fevers, no chest pain or shortness of breath. He has noticed that his weight has gone up about 40 pounds in the last few months, along with having increased abdominal girth and leg swelling. He has symptoms of abdominal discomfort but not necessarily pain. Although given his presentation of new ascites, hypotension and leukocytosis, he was suspected to may have SBP and started on albumin repletion as well as Zosyn. He denies any nausea, vomiting. He does feel constipated, states that last bowel movement was few days ago. Upon evaluation he was found to have leukocytosis, also anemic but this appears to be chronic, platelet count is normal INR elevated at 1.6, creatinine up to 2.1 consistent with ANDRES, CT and procalcitonin were elevated as well. LFTs: Total bilirubin 1.4, AST 52, ALT 40, alkaline phosphatase 118. CT abdomen and pelvis with signs of cirrhosis and evidence of portal venous hyper tension including splenomegaly, and moderate abdominal pelvic ascites. There is also mild wall thickening of the distal colon and rectum which may be nonspecific to proctocolitis versus portal colopathy. The findings of cirrhosis and ascites appears to be new. He did have history of fatty liver on previous abdominal studies. Most recently had CT abdomen pelvis in an outpatient setting back in February 2022 without findings of cirrhosis to be noted. Reports that his brother had history of cirrhosis, likely related to alcohol abuse. Patient used to drink about 3 beers a day but has not had any alcohol for a number of years, denies any tobacco or illicit drug use. Does have history of tattoos. Allergies Allergy/AdvReac Type Severity Reaction Status Date / Time No Known Allergies Allergy Verified 07/18/22 14:26 Home Medications Medication Instructions Recorded Confirmed Type multivitamin 1 tab PO QPM 01/26/19 07/18/22 History lancets 33 gauge (OneTouch Delica #100 ea 06/27/21 07/18/22 History Lancets) lisinopril 20 mg tablet 20 mg PO QPM 10/01/21 07/18/22 History OneTouch Verio test strips (blood #300 ea 02/06/22 07/18/22 Rx sugar diagnostic) pen needle, diabetic 32 gauge x #500 ea 02/06/22 07/18/22 Rx 5/32" (BD Ultra-Fine Pascale Pen Needle) aspirin 81 mg tablet,delayed 81 mg PO DAILY 07/18/22 07/18/22 History release atorvastatin 40 mg tablet 40 mg PO HS 07/18/22 07/18/22 History insulin aspart U-100 100 unit/mL 12 unit subcut TID 07/18/22 07/18/22 History (3 mL) subcutaneous pen (Novolog FlexPen U-100 Insulin aspart) insulin glargine 100 unit/mL (3 32 unit subcut HS 07/18/22 07/18/22 History mL) subcutaneous pen (Basaglar KwikPen U-100 Insulin) levothyroxine 88 mcg tablet 88 mcg PO QAM 07/18/22 07/18/22 History liraglutide 0.6 mg/0.1 mL (18 mg/3 1.8 mg subcut DAILY 07/18/22 07/18/22 History mL) subcutaneous pen injector (Exietoza 3-Joshua) omeprazole 40 mg capsule,delayed 40 mg PO DAILY 07/18/22 07/18/22 History release Patient History Medical History Henry's esophagus BCC (basal cell carcinoma of skin) Bilateral nephrolithiasis Diabetes mellitus, type 2 Esophageal adenocarcinoma History of, diagnosed 11/2021 Gallstones GERD (gastroesophageal reflux disease) History of colon cancer SURGERY>RADIATION THERAPY History of eye cancer LEFT Hyperlipidemia Hypertension Hypothyroidism ? THYROID CANCER *PT STATES HAD RADIATION 5 TIMES TO NECK Inguinal hernia, bilateral Melanoma ON RT ARM. S/p neck dissection and a parotidectomy on 11/16/2015 following failed radiation therapy for the metastatic disease from the skin primary. Nonalcoholic fatty liver disease Rib fracture posterior right 11th SCC (squamous cell carcinoma) Surgical History H/O colonoscopy H/O eye surgery SURGERY FOR CANCER ON LEFT EYE/UNSURE OF DETAILS H/O right hemicolectomy History of esophagogastroduodenoscopy (EGD) History of left cataract surgery History of surgery on arm LYMPH NODES REMOVED FROM RT ARM (RESTRICTION) History of tooth extraction Family History Mother Diabetes Father Diabetes Other Hyperlipidemia No family history of adverse response to anesthesia Stroke Denies family history of Ovarian cancer Prostate cancer Breast cancer Colorectal cancer Social History Smoking Status: Former smoker Age Started Using Tobacco: 11; Age Quit Using Tobacco: 62; packs per day: 1.5; Cigarettes Per Day: 7 YEARS AGO; Second Hand Exposure: Yes; Do You Dip or Chew Tobacco: No; Tobacco Cessation Education Requested by Patient: No Hx Alcohol Use: No Hx Substance Use: No Preferred Language: Egyptian Communication Ability: Effective Hearing Ability: Normal Reviewer Sales Required: No Beliefs That Will Affect Care: None marital status: / Current Living Situation: Alone current occupational status: retired Other Information That Helps Us Care for You: No Feels Safe at Home: Yes Safety Concerns: Feels Safe At This Time Seatbelt Use: always Sunscreen Use: Yes Assistive Devices: Cane, Denture - Upper and Denture - Lower Review of Systems Review of Systems: All systems reviewed & are unremarkable except as noted in HPI & below Physical Exam Constitutional: WD/WN, vitals as above well groomed, cooperative and comfortable Eyes: PERRL, conjunctivae normal, anicteric sclerae ENMT: external ear and nose normal, oropharynx normal Respiratory: Normal respiratory effort, diminished bilateral bases Cardiovascular: RRR, no murmur. + 2 pitting edema on legs Gastrointestinal (Abdomen): Distended, non tender, BS hypoactive Skin: no rashes, warm and dry no jaundice Neurologic: Motor/Sensory: no asterixis Psychiatric: A+Ox3, euthymic affect Results & Data ([facility]) Vital Signs (Past 12 Hours) Vital Signs Temp Pulse Pulse Resp BP Pulse Ox O2 Del Method 07/19/22 08:00 94 H 07/19/22 08:00 Nasal Cannula 07/19/22 07:45 36.6 C 99 H 22 90/75 L 94 Nasal Cannula 07/19/22 03:09 37.0 C 96 H 22 98/55 L 95 Nasal Cannula 07/19/22 02:00 36.7 C 95 H 22 106/75 96 Nasal Cannula 07/19/22 01:10 36.8 C 92 H 22 97/63 L 95 Nasal Cannula 07/19/22 00:52 36.6 C 93 H 22 93/55 L 96 Nasal Cannula 07/19/22 00:40 36.8 C 96 H 22 91/55 L 95 Nasal Cannula O2 Flow Rate 07/19/22 08:00 07/19/22 08:00 2 07/19/22 07:45 2 07/19/22 03:09 2 07/19/22 02:00 2 07/19/22 01:10 2 07/19/22 00:52 2 07/19/22 00:40 2
[2022-07-19] MEDS: POLYETHYLENE (MIRALAX) 17 GM PACK PO SCH (12:39)
[2022-07-19 13:25] LABS: Albumin Peritoneal Fluid < 1.5 gm/dl; Amylase Peritoneal Fluid 13 U/L
[2022-07-19 13:30] LABS: Glucose Peritoneal Fluid 118 mg/dl; LDH Peritoneal Fluid 78 U/L; Lipase Peritoneal Fluid 49 U/L; Total Protein Peritoneal Fluid < 3.0 gm/dl
[2022-07-19 14:32] LABS: Appearance Peritoneal Fluid Cloudy; Basophils, Fluid 1 %; Color Peritoneal Fluid Pale Yellow; Lymphocytes, Fluid 9 %; Mono,Macrophage,Mesothelial 20 %; Neutrophils, Fluid 70 %; RBC Peritoneal Fluid Auto < 2000 /uL; WBC Peritoneal Fluid Auto 3631 /ul (0-300)
--- NOTE | 2022-07-19 14:38 | Ultrasound Report ---
PROCEDURE: Ultrasound-Guided Diagnostic/Therapeutic Paracentesis CLINICAL HISTORY: SBP MEDICATIONS: Subcutaneous Lidocaine 2%. PROCEDURE: The procedure itself was explained to the patient carefully. The patient was brought into the IR suite and a time-out was performed. The patient was positioned supine on the table. Preliminar y ultrasound of the abdomen was performed to determine a safe needle entry site. The most appropriat e approach for safe needle entry site was planned and the site for puncture was marked. The right low er quadrant was prepped and draped in the usual sterile fashion. Subcutaneous 2% lidocaine was used f or local anesthesia along the expected needle tract. Under ultrasound-guidance, an 5 Vietnamese Isentropiceh needle-sheath was inserted carefully into the peritoneal space towards the abdominal ascites fluid collection. The needle was removed and the sheath was conn ected to tubing and a vacuum suction device. A total of 5000 cc of serous ascites was aspirated. The sheath was removed and a sterile dressing applied. The patient tolerated the procedure well without i mmediate complications. Sample of ascites was sent for analysis. IMPRESSION: Ultrasound-guided diagnostic/therapeutic paracentesis. Of note, significant residual fluid was seen. Electronically signed by: Donovan Smith M.D. 07/19/2022 2:36 PM
--- NOTE | 2022-07-19 15:11 | Ultrasound Report ---
US duplex portal hepatic veins CLINICAL HISTORY: Cirrhosis and ascites. Assess for portal vein thrombosis. COMPARISON STUDY: Abdomen and pelvis CT 07/18/2022. FINDINGS: The portal and hepatic veins are patent and demonstrate the normal direction of flow. Cirrh otic liver with a small amount of ascites is also noted. The visualized IVC and splenic vein appear p atent. IMPRESSION: The portal and hepatic veins are patent. ACT 112: Negative or not required by law. Electronically signed by: José Miguel Maloney M.D. 07/19/2022 3:09 PM
--- NOTE | 2022-07-19 15:11 | Electrocardiogram Report ---
Test Reason : Blood Pressure : / mmHG Vent. Rate : 096 BPM Atrial Rate : 078 BPM P-R Int : 000 ms QRS Dur : 078 ms QT Int : 356 ms P-R-T Axes : 000 043 052 degrees QTc Int : 449 ms Poor data quality, interpretation may be adversely affected Sinus rhythm with PACs Abnormal ECG Confirmed by Chad Palmer ([id number]) on 07/19/2022 3:11:37 PM Referred By: Rosalva Bravo Confirmed By:Gelacio Palmer
[2022-07-19] MEDS: ATORVASTATIN 40 MG TAB PO SCH (20:35)
--- NOTE | 2022-07-19 22:37 | Hospitalist Progress Note ---
Date of Service July 19, 2022 Assessment & Plan (1) Spontaneous bacterial peritonitis: Plan: Diagnosis of exclusion - new hypotension with generalized abdominal pain Will get paracentesis in the AM hopefully once his BP is better off lisinopril Albumin 100g IV Switch cefepime to Zosyn Follow up blood cultures (2) Cellulitis: Plan: Possible diagnosis of lower abdomen although appearance is more suggestive of friction from being on the ground given color and lack of warmth Continue to monitor for resolution Continue antibiotics as above Follow up blood cultures (3) Acute hypotension: Plan: ?secondary to SBP as above vs. chronic decompensated cirrhosis vs. cellulitis (appearance more consistent with friction from his fall than cellulitis of lower abdomen given dark appearance and lack of warmth) Start midodrine for hypotension Consider transfer to ICU if MAP < 65 (4) Fall: Plan: Rib fracture as a result of the fall - incentive spirometer I suspect this was a result of his bilateral leg edema making him weak No lateralizing weakness suggestive of an acute stroke and CT head without acute intracranial pathology. (5) Liver cirrhosis: Plan: Unclear cause or if this has ever been worked up Will send ascitic fluid for cytology given extensive cancer history Consult [facility] gastroenterology INR 1.5 -> will given vitamin K 5mg IV to see how reversible this is due to deficiency vs. liver cirrhosis. Plt normal. (6) Bilateral leg edema: Plan: R > L therefore will get US venous doppler to assess for DVT on right side. Suspect secondary to liver cirrhosis as above Given hypotension will avoid diuretics on admission (7) ANDRES (acute kidney injury): Plan: Concerning for hepatorenal syndrome. Should improve with improvement in his BP with midodrine as above. UA pending on admission (8) Weakness: Plan: Multifactorial with possible infection, liver cirrhosis, renal failure B12 level for peripheral neuropathy PT/OT (9) Type I diabetes mellitus, well controlled: Plan: HbA1C 6.3 in February 2022 Usually takes Lantus 32 units at night and NovoLog 12 units 3 times daily Glucose 84 on admission therefore decrease Lantus to 16 units HS Novolog: --Goal BSG Range: Low 110 mg/dL, High 140 mg/dL --Correction Factor: 20 mg/dL/unit --Carbohydrate ratio = 7 g/unit --BSGs ACHS if eating, q6h if npo Consult pharmacy for glycemic control for ongoing dosing Plan VTE Prophylaxis - deferred on admission due to pending US venous doppler and paracentesis planned for tomorrow Diet - low Na, T1DM Disposition - admit to PCU Admission and Anticipated Discharge Date Admission Date: July 18, 2022 Subjective Patient seen and examined No chest pain mild abdominal discomfort Physical Exam Physical Exam: Head and ENT no thyroid enlargement trachea midline Cardiovascular S1-S2 are normal no S3 Lungs bilateral air entry fair no wheezing Abdomen soft positive bowel sounds no rebound tenderness Extremity shows trace edema Neurologically no focal deficits Skin shows no cyanosis Results & Data Results & [facility] ([facility]) Vital Signs (Past 12 Hours) Vital Signs Temp Pulse Resp BP Pulse Ox O2 Del Method O2 Flow Rate 07/19/22 20:23 36.8 C 86 22 108/51 L 93 Nasal Cannula 2.0 07/19/22 15:31 37.1 C 88 19 102/56 L 93 Nasal Cannula 2 07/19/22 11:59 36.5 C 91 H 24 101/52 L 96 Nasal Cannula 2 Laboratory Results Short CBC 07/19/22 Range/Units 06:22 WBC 9.37 (4.8-10.8) K/ul Hgb 9.0 L (14.0-18.0) g/dl Hct 28.0 L (42.0-52.0) % Plt Count 183 (130-400) K/uL BMP 07/19/22 06:22 Sodium 142 Potassium 4.7 Chloride 109 H Carbon Dioxide 28 BUN 40 H Creatinine 1.93 H Glucose 121 H Calcium 8.3 L Cardiac Enzymes 07/19/22 Range/Units 06:22 Total Creatine Kinase 408 H (30-223) U/L Liver Function 07/19/22 Range/Units 06:22 Total Bilirubin 1.4 H (0.2-1.0) mg/dl AST 52 H (13-39) U/L ALT 40 (7-52) U/L Alkaline Phosphatase 118 H (34-104) U/L Albumin 3.0 L (3.4-5.0) gm/dl Urine 07/18/22 Range/Units 22:25 Urine Color [place] Urine Appearance Cloudy A (Clear) Urine pH 5.0 (4.5-7.5) Ur Specific [place] 1.023 (1.000-1.030) Urine Protein 1+ H (Negative) Urine Glucose (UA) Negative (Negative) PG Care Time/CCT Total # of Minutes Spent Total Time Spent with Patient: Total time spent is greater than 50% in coordination of care (as documented) at patient's floor/unit and/or counseling patient: Coding Level of Care Code 43393 SUB INP/OBS CARE 2/35MIN Diagnoses Spontaneous bacterial peritonitis K65.2 Cellulitis L03.90 Acute hypotension I95.9 Fall W19.XXXA Liver cirrhosis K74.60 Bilateral leg edema R60.0 ANDRES (acute kidney injury) N17.9 Weakness R53.1 Type I diabetes mellitus, well controlled E10.9
[2022-07-20] MEDS: PIPERACILLIN/TAZOBACTAM 4.5 GM in DEXTROSE 5% 100 ML IV SCH ×3 (05:52→22:03)
[2022-07-20] MEDS: LEVOTHYROXINE SODIUM 88 MCG TABLET PO SCH (05:53)
[2022-07-20 07:04] LABS: Basophils # (auto) 0.02 K/uL (0-0.2); Basophils % (auto) 0.4 %; Eosinophils # (auto) 0.13 K/uL (0-0.50); Eosinophils % (auto) 2.3 %; Hematocrit (blood only) 26.3 % (42.0-52.0); Hemoglobin 8.6 g/dl (14.0-18.0); Immature Granulocytes # (auto) 0.01 K/uL (0.01-0.20); Immature Granulocytes % (auto) 0.2 %; Lymphocytes % (auto) 10.6 %; Mean Corpuscular Hemoglobin 31.5 pg (25.0-34.0); Mean Corpuscular Hgb Conc 32.7 g/dL (32.0-36.0); Mean Corpuscular Volume 96.3 fL (80.0-100.0); Monocytes # (auto) 0.74 K/uL (0.11-0.59); Neutrophils # (auto) 4.18 K/uL (1.40-6.50); Neutrophils % (auto) 73.5 %; Platelet Count 146 K/uL (130-400); RDW Coefficient of Variation 14.2 % (11.5-14.5); RDW Standard Deviation 49.2 fL (36.4-46.3); Red Blood Count 2.73 M/uL (4.70-6.10); White Blood Count 5.68 K/ul (4.8-10.8)
[2022-07-20 07:41] LABS: Albumin Level 2.7 gm/dl (3.4-5.0); Bilirubin,Total 1.2 mg/dl (0.2-1.0); Calcium 7.9 mg/dl (8.5-10.1)
[2022-07-20 07:47] LABS: Albumin Globulin Ratio 0.9 (0.9-2); BUN Creatinine Ratio 30.2 (10-20); Creatinine Clr Calc Pharmacy 49.7 ml/min; Est GFR (African American) 49.2 ml/min; Est GFR (Non-African American) 42.4 ml/min; Total Protein 5.7 gm/dl (6.0-8.3)
[2022-07-20] MEDS ORDERED: LANTUS PER UNIT CHARGE SQ SCH (09:00)
[2022-07-20] MEDS: POLYETHYLENE (MIRALAX) 17 GM PACK PO SCH (09:14)
[2022-07-20] MEDS: MIDODRINE HCL 2.5 MG TAB PO SCH ×3 (09:14→16:59)
[2022-07-20] MEDS: PANTOprazole 40 MG TAB PO SCH (09:14)
[2022-07-20] MEDS: INSULIN ASPART PER UNIT SC SCH ×4 (09:16→21:50)
[2022-07-20] MEDS: ATORVASTATIN 40 MG TAB PO SCH (21:02)
--- NOTE | 2022-07-20 23:50 | Hospitalist Progress Note ---
Date of Service July 20, 2022 Assessment & Plan (1) Spontaneous bacterial peritonitis: Plan: Diagnosis of exclusion - new hypotension with generalized abdominal pain Will get paracentesis in the AM hopefully once his BP is better off lisinopril Albumin 100g IV Switch cefepime to Zosyn Follow up blood cultures 07/20- patient with new onset ascites, fluid: Analysis is still pending, awaiting cytology to ensure he does not have malignant ascites. Likely fatty liver with ascites secondary to cirrhosis continued antibiotic coverage for total of 5 days. Low-sodium diet Await paracentesis results Continue albumin as per GI (2) Cellulitis: Plan: Possible diagnosis of lower abdomen although appearance is more suggestive of friction from being on the ground given color and lack of warmth Continue to monitor for resolution Continue antibiotics as above Follow up blood cultures (3) Acute hypotension: Plan: ?secondary to SBP as above vs. chronic decompensated cirrhosis vs. cellulitis (appearance more consistent with friction from his fall than cellulitis of lower abdomen given dark appearance and lack of warmth) Start midodrine for hypotension Consider transfer to ICU if MAP < 65 (4) Fall: Plan: Rib fracture as a result of the fall - incentive spirometer I suspect this was a result of his bilateral leg edema making him weak No lateralizing weakness suggestive of an acute stroke and CT head without acute intracranial pathology. (5) Liver cirrhosis: Plan: Unclear cause or if this has ever been worked up Will send ascitic fluid for cytology given extensive cancer history Consult [facility] gastroenterology INR 1.5 -> will given vitamin K 5mg IV to see how reversible this is due to deficiency vs. liver cirrhosis. Plt normal. (6) Bilateral leg edema: Plan: R > L therefore will get US venous doppler to assess for DVT on right side. Suspect secondary to liver cirrhosis as above Given hypotension will avoid diuretics on admission (7) ANDRES (acute kidney injury): Plan: Concerning for hepatorenal syndrome. Should improve with improvement in his BP with midodrine as above. UA pending on admission (8) Weakness: Plan: Multifactorial with possible infection, liver cirrhosis, renal failure B12 level for peripheral neuropathy PT/OT (9) Type I diabetes mellitus, well controlled: Plan: HbA1C 6.3 in February 2022 Usually takes Lantus 32 units at night and NovoLog 12 units 3 times daily Glucose 84 on admission therefore decrease Lantus to 16 units HS Novolog: --Goal BSG Range: Low 110 mg/dL, High 140 mg/dL --Correction Factor: 20 mg/dL/unit --Carbohydrate ratio = 7 g/unit --BSGs ACHS if eating, q6h if npo Consult pharmacy for glycemic control for ongoing dosing Plan VTE Prophylaxis - deferred on admission due to pending US venous doppler and paracentesis planned for tomorrow Diet - low Na, T1DM Disposition - admit to PCU Admission and Anticipated Discharge Date Admission Date: July 18, 2022 Subjective Patient seen and examined No chest pain mild abdominal discomfort Patient reports feeling improved Physical Exam Physical Exam: Head and ENT no thyroid enlargement trachea midline Cardiovascular S1-S2 are normal no S3 Lungs bilateral air entry fair no wheezing Abdomen soft positive bowel sounds no rebound tenderness Ascites improved Extremity shows trace edema Neurologically no focal deficits Skin shows no cyanosis Results & Data Results & Data ([facility]) Vital Signs (Past 12 Hours) Vital Signs Temp Pulse Resp BP Pulse Ox O2 Del Method O2 Flow Rate 07/20/22 21:00 Nasal Cannula 2 07/20/22 22:36 37.1 C 87 20 99/47 L 95 Nasal Cannula 2 07/20/22 19:17 36.9 C 83 20 111/65 97 Nasal Cannula 2 07/20/22 15:29 36.8 C 82 22 104/46 L 95 Room Air, Nasal Cannula PG Care Time/CCT Total # of Minutes Spent Total Time Spent with Patient: Total time spent is greater than 50% in coordination of care (as documented) at patient's floor/unit and/or counseling patient: Coding Level of Care Code 09588 SUB INP/OBS CARE 2/35MIN Diagnoses Spontaneous bacterial peritonitis K65.2 Cellulitis L03.90 Acute hypotension I95.9 Fall W19.XXXA Liver cirrhosis K74.60 Bilateral leg edema R60.0 ANDRES (acute kidney injury) N17.9 Weakness R53.1 Type I diabetes mellitus, well controlled E10.9
[2022-07-21] MEDS: LEVOTHYROXINE SODIUM 88 MCG TABLET PO SCH (06:17)
[2022-07-21] MEDS: PIPERACILLIN/TAZOBACTAM 4.5 GM in DEXTROSE 5% 100 ML IV SCH ×3 (06:17→22:51)
[2022-07-21 07:34] LABS: Hematocrit (blood only) 27.8 % (42.0-52.0); Hemoglobin 8.8 g/dl (14.0-18.0); Mean Corpuscular Hemoglobin 31.1 pg (25.0-34.0); Mean Corpuscular Hgb Conc 31.7 g/dL (32.0-36.0); Mean Corpuscular Volume 98.2 fL (80.0-100.0); Mean Platelet Volume 10.5 fL (9.4-12.4); Platelet Count 147 K/uL (130-400); RDW Coefficient of Variation 13.7 % (11.5-14.5); RDW Standard Deviation 49.1 fL (36.4-46.3); Red Blood Count 2.83 M/uL (4.70-6.10); White Blood Count 4.46 K/ul (4.8-10.8)
[2022-07-21 07:42] LABS: Albumin Level 2.5 gm/dl (3.4-5.0); Calcium 7.7 mg/dl (8.5-10.1)
[2022-07-21 07:44] LABS: Basophils # (auto) 0.04 K/uL (0-0.2); Basophils % (auto) 0.9 %; Eosinophils # (auto) 0.15 K/uL (0-0.50); Eosinophils % (auto) 3.4 %; Immature Granulocytes # (auto) 0.01 K/uL (0.01-0.20); Immature Granulocytes % (auto) 0.2 %; Lymphocytes # (auto) 0.46 K/uL (1.2-3.4); Lymphocytes % (auto) 10.3 %; Monocytes # (auto) 0.65 K/uL (0.11-0.59); Monocytes % (auto) 14.6 %; Neutrophils # (auto) 3.15 K/uL (1.40-6.50); Neutrophils % (auto) 70.6 %
[2022-07-21 07:48] LABS: Albumin Globulin Ratio 0.8 (0.9-2); BUN Creatinine Ratio 33.3 (10-20); Creatinine Clr Calc Pharmacy 63.2 ml/min; Est GFR (African American) 65.2 ml/min; Est GFR (Non-African American) 56.2 ml/min; Total Protein 5.5 gm/dl (6.0-8.3)
[2022-07-21] MEDS: POLYETHYLENE (MIRALAX) 17 GM PACK PO SCH (08:53)
[2022-07-21] MEDS: PANTOprazole 40 MG TAB PO SCH (08:53)
[2022-07-21] MEDS: MIDODRINE HCL 2.5 MG TAB PO SCH ×3 (08:53→17:05)
[2022-07-21] MEDS: INSULIN ASPART PER UNIT SC SCH ×4 (08:55→20:26)
[2022-07-21] MEDS: ALBUMIN 25% 100 mL 25 GM/100 ML VIAL IV SCH ×4 (08:59→14:21)
[2022-07-21] MEDS ORDERED: LANTUS PER UNIT CHARGE SQ SCH (09:00)
--- NOTE | 2022-07-21 10:46 | Pharmacy Report ---
Pharmacy Glycemic Short Note 2 - Date of Service July 21, 2022 - Glycemic Short BSG Results (Last 24 hours): 07/20/22 07/20/22 07/20/22 11:27 16:13 20:16 Glucose POC Glucose 221 H 123 H 146 H 07/21/22 07/21/22 06:13 07:21 Glucose 145 H POC Glucose 143 H OUTPATIENT ANTIDIABETIC REGIMEN: * Basaglar 32 units HS * Novolog 12 units TID HbA1C: 5.9% (07/19/22) ASSESSMENT: 07/21/22 * Patient's BSGs yesterday were [phone] mg/dL. Patient received 24 units of insulin (5 units of basal and 19 units of bolus). * Fasting today is 143 mg/dL. Increase basal by 20% to 8 units. For tomorrow will have scale for Lantus with automatic titrations of 0-10-20%. * Continue Novolog. CF well placed as patient corrected from 221 to 123. BACKGROUND * Patient is a 72 YOM, type 1 diabetic, admitted with spontaneous bacterial peritonitis. Pharmacy consulted to assist with glycemic management. * BSGs [phone]/dL since admission. Per patient - he has not been eating for several days and did not take his insulin at all yesterday. * Diet ordered - did tolerate breakfast this AM per RN. On IV antibiotics, and has an ANDRES. * Given patient is a type 1 diabetic, will give a small dose of basal insulin this AM, 5 units, given BSG on the lower end and has not been tolerating PO. Novolog parameters loosened for now given decreased PO. Will titrate based on intake and BSG trend. PLAN FOR INPATIENT GLYCEMIC CONTROL: * Hold outpatient oral diabetes medications * Basal insulin * Lantus 8 units SQ X 1 then 8-12 units SQ daily starting 07/22/22 * Bolus insulin * NovoLog per scale ACHS or Q6hrs while NPO * Goal Range: Low 110 mg/dL - High 140 mg/dL * Correction Factor: 35 mg/dL/unit * Nutritional / Prandial insulin per carb ratio of 1 unit per 8 grams CHO consumed
--- NOTE | 2022-07-21 19:00 | Hospitalist Progress Note ---
Date of Service July 21, 2022 Assessment & Plan (1) Spontaneous bacterial peritonitis: Plan: Diagnosis of exclusion - new hypotension with generalized abdominal pain Will get paracentesis in the AM hopefully once his BP is better off lisinopril Albumin 100g IV Switch cefepime to Zosyn Follow up blood cultures 07/20- patient with new onset ascites, fluid: Analysis is still pending, awaiting cytology to ensure he does not have malignant ascites. Likely fatty liver with ascites secondary to cirrhosis continued antibiotic coverage for total of 5 days. Low-sodium diet Await paracentesis results Continue albumin as per GI 07/21-continue IV antibiotics and albumin Low-sodium diet (2) Cellulitis: Plan: Possible diagnosis of lower abdomen although appearance is more suggestive of friction from being on the ground given color and lack of warmth Continue to monitor for resolution Continue antibiotics as above Follow up blood cultures (3) Acute hypotension: Plan: ?secondary to SBP as above vs. chronic decompensated cirrhosis vs. cellulitis (appearance more consistent with friction from his fall than cellulitis of lower abdomen given dark appearance and lack of warmth) Start midodrine for hypotension Consider transfer to ICU if MAP < 65 (4) Fall: Plan: Rib fracture as a result of the fall - incentive spirometer I suspect this was a result of his bilateral leg edema making him weak No lateralizing weakness suggestive of an acute stroke and CT head without acute intracranial pathology. (5) Liver cirrhosis: Plan: Unclear cause or if this has ever been worked up Will send ascitic fluid for cytology given extensive cancer history Consult [facility] gastroenterology INR 1.5 -> will given vitamin K 5mg IV to see how reversible this is due to deficiency vs. liver cirrhosis. Plt normal. (6) Bilateral leg edema: Plan: R > L therefore will get US venous doppler to assess for DVT on right side. Suspect secondary to liver cirrhosis as above Given hypotension will avoid diuretics on admission (7) ANDRES (acute kidney injury): Plan: Concerning for hepatorenal syndrome. Should improve with improvement in his BP with midodrine as above. UA pending on admission (8) Weakness: Plan: Multifactorial with possible infection, liver cirrhosis, renal failure B12 level for peripheral neuropathy PT/OT (9) Type I diabetes mellitus, well controlled: Plan: HbA1C 6.3 in February 2022 Usually takes Lantus 32 units at night and NovoLog 12 units 3 times daily Glucose 84 on admission therefore decrease Lantus to 16 units HS Novolog: --Goal BSG Range: Low 110 mg/dL, High 140 mg/dL --Correction Factor: 20 mg/dL/unit --Carbohydrate ratio = 7 g/unit --BSGs ACHS if eating, q6h if npo Consult pharmacy for glycemic control for ongoing dosing Plan VTE Prophylaxis - deferred on admission due to pending US venous doppler and paracentesis planned for tomorrow Diet - low Na, T1DM Disposition - admit to PCU Admission and Anticipated Discharge Date Admission Date: July 18, 2022 Subjective Patient seen and examined No chest pain abdominal distention improved Patient reports feeling improved No fevers or chills reported Physical Exam Physical Exam: Head and ENT no thyroid enlargement trachea midline Cardiovascular S1-S2 are normal no S3 Lungs bilateral air entry fair no wheezing Abdomen soft positive bowel sounds no rebound tenderness Ascites improved Extremity shows trace edema Neurologically no focal deficits Skin shows no cyanosis Results & Data Results & Data ([facility]) Vital Signs (Past 12 Hours) Vital Signs Temp Pulse Resp BP Pulse Ox O2 Del Method O2 Flow Rate 07/21/22 15:00 87 07/21/22 15:17 37.1 C 89 27 H 108/50 L 97 Nasal Cannula 2 07/21/22 11:25 36.5 C 82 22 94/57 L 97 Nasal Cannula 2 07/21/22 08:00 Nasal Cannula 2 07/21/22 07:19 37.2 C 82 19 92/48 L 95 Nasal Cannula 2 Laboratory Results Short CBC 07/21/22 Range/Units 06:13 WBC 4.46 L (4.8-10.8) K/ul Hgb 8.8 L (14.0-18.0) g/dl Hct 27.8 L (42.0-52.0) % Plt Count 147 (130-400) K/uL BMP 07/21/22 06:13 Sodium 140 Potassium 4.0 Chloride 108 H Carbon Dioxide 27 BUN 42 H Creatinine 1.26 D Glucose 145 H Calcium 7.7 L Liver Function 07/21/22 Range/Units 06:13 Total Bilirubin 1.0 (0.2-1.0) mg/dl AST 62 H (13-39) U/L ALT 42 (7-52) U/L Alkaline Phosphatase 111 H (34-104) U/L Albumin 2.5 L (3.4-5.0) gm/dl PG Care Time/CCT Total # of Minutes Spent Total Time Spent with Patient: Total time spent is greater than 50% in coordination of care (as documented) at patient's floor/unit and/or counseling patient: Coding Level of Care Code 28236 SUB INP/OBS CARE 2/35MIN Diagnoses Spontaneous bacterial peritonitis K65.2 Cellulitis L03.90 Acute hypotension I95.9 Fall W19.XXXA Liver cirrhosis K74.60 Bilateral leg edema R60.0 ADNRES (acute kidney injury) N17.9 Weakness R53.1 Type I diabetes mellitus, well controlled E10.9
[2022-07-21] MEDS: ATORVASTATIN 40 MG TAB PO SCH (20:26)
[2022-07-22] MEDS: LEVOTHYROXINE SODIUM 88 MCG TABLET PO SCH (06:14)
[2022-07-22] MEDS: PIPERACILLIN/TAZOBACTAM 4.5 GM in DEXTROSE 5% 100 ML IV SCH (06:14)
[2022-07-22] MEDS: MIDODRINE HCL 2.5 MG TAB PO SCH ×3 (08:09→17:34)
[2022-07-22] MEDS: PANTOprazole 40 MG TAB PO SCH (08:10)
[2022-07-22] MEDS: POLYETHYLENE (MIRALAX) 17 GM PACK PO SCH (08:15)
--- NOTE | 2022-07-22 08:49 | Gastroenterology Progress Note ---
Date of Service July 22, 2022 Assessment & Plan (1) Liver cirrhosis: (2) Henry's esophagus: (3) Ascites: (4) Spontaneous bacterial peritonitis: Plan 1. Paracentesis is arranged for today w albumin before/after. 2. Continue Midodrine. 3. Continue Zosyn. After (likely 10 day) tx of SBP, he needs life long SBP prevention with Cipro 500mg po daily 4. Appears that kidney function is optimized so consider beginning Furosemide 40/spironolactone 100mg daily and watch renal function. 5. EGD cecilia for 10/15/22 for f/u Henry's/esophageal adenocarcinoma. 6. OP Hepatology referral was placed. Our office will contact pt to arrange. 7. Will review cytology from the ascitic fluid when available. 8. Low salt, regular diet. Admission and Anticipated Discharge Date Admission Date: July 18, 2022 Supervising Physician Co-Signing Physician Notes I performed a history and physical examination of the patient today, including s pecifically on physical exam - soft abdomen. I have discussed the patient's management with the advanced practitioner. Please refer to the nurse practitioner's note for the documented findings and plan of care. Repeat Tap. Follow up as OP in Hepatology clinic. Lifelong PO Cipro 500 mg daily Recall GI if needed. Subjective 72 yr old male admitted 07/18 w new cirrhosis (by CT) and ascites. 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 5L paracentesis 07/18 w SBP (on Zosyn), Cytology pending. Doppler w/o PVT. CT w/o bile duct abnormalities. T Bili 1.0, WBC 4, INR 1.6, Cr 1.22. Frequent EGD/EUS for Henry's Esophagus, due now. Most recent Mar 2023. Regarding cause of cirrhosis: from age 19 - 59 drank about 2 beers/day. Since then, minimal. Has hx of DM/obesity. Review of Systems Review of Systems: ROS: Gen: + general weakness/falls,, + 50 lbs weight gain in past 2 yrs. No fevers. No confusion. Good appetite. Eyes: No eye redness, or pain, no recent vision changes Resp: No SOB, no cough Cardio: No palpitations/irregular beats, no chest pain GI: + enlarging abd girth; see HPI, otherwise (-). : Denies pain on urination Skin: No jaundice, itching or new rashes Ext: + lower leg edema Physical Exam Constitutional: WD/WN, vitals as above + obese Eyes: PERRL, conjunctivae normal, anicteric sclerae ENMT: external ear and nose normal, oropharynx normal Neck: trachea midline, no thyromegaly neck scarring from prior dissection for melamona. Respiratory: normal respiratory effort; no cough lungs clear. On O2 at 2L/min; Sat 95% Cardiovascular: Rate/Rhythm: regular rate and regular rhythm Heart Sounds: no murmur 2+ pitting lower leg edema Gastrointestinal (Abdomen): Obese; large ascites, non tender, prior paracentesis site w/o leaking. Soft, non tender, no palpable masses. Musculoskeletal: no cyanosis or clubbing, extremities motor strength 5/5 Skin: dressing on right lower leg. No visible lesions/ulcers; no jaundice or rashes Neurologic: PERRL, EOMI, accommodation nl, no face palsy, no dysarthria Psychiatric: A+Ox3, euthymic affect Lymphatic: no cervical or axillary lymphadenopathy Results & Data ([facility]) Vital Signs (Past 12 Hours) Vital Signs Temp Pulse Pulse Resp BP Pulse Ox O2 Del Method 07/22/22 08:00 36.9 C 84 18 105/65 95 Room Air 07/21/22 22:07 79 07/22/22 02:40 37.2 C 83 18 92/48 L 95 Nasal Cannula 07/21/22 22:50 36.7 C 82 17 117/46 L 96 Nasal Cannula O2 Flow Rate 07/22/22 08:00 07/21/22 22:07 07/22/22 02:40 2 07/21/22 22:50 2 Laboratory Results WBC 4.4, Hb 8.8, Hct 27.8, Plts 147, PT 16.4, INR 1.6, Na 140, K 4.0, Cl 108, K 4.0, Cl 108, CO2 27, BUN 30, Cr 1.26, glucose 145. T Bili 1.0, AST 62, ALT 42, Alk Phos 11. Peritoneal fluid analysis: 3631 WBCs, 70% neutrophils. SAAG on 07/19: 3.0-1.5=1.5 Total ascitic fluid protein = 3 Diagnostic Findings non contrast CTAP 07/18: 1. No acute posttraumatic intra-abdominal or intrapelvic abnormality identified. 2. Equivocal acute nondisplaced fracture of the posterior left 12th rib. Correlate with point tenderness. 3. Cirrhosis with evidence of portal venous hypertension including splenomegaly with moderate abdominal pelvic ascites. 4. Mild wall thickening of the distal colon and rectum may be secondary to a nonspecific proctocolitis versus portal colopathy. 5. Postoperative changes of right hemicolectomy. 6. Cholelithiasis. 7. Bilateral renal calcifications. No hydronephrosis. 8. Additional findings as above. Portal Vein doppler US 07/19/22: The portal and hepatic veins are patent.
[2022-07-22] MEDS ORDERED: LANTUS PER UNIT CHARGE SQ SCH (09:00)
[2022-07-22] MEDS: INSULIN ASPART PER UNIT SC SCH ×4 (09:21→20:50)
[2022-07-22] MEDS ORDERED: ALBUMIN 25% 25 GM/100 ML VIAL IV ONE ×2 (11:00→14:00)
--- NOTE | 2022-07-22 12:26 | Pharmacy Report ---
Pharmacy Glycemic Short Note 2 - Date of Service July 22, 2022 - Glycemic Short BSG Results (Last 24 hours): 07/21/22 07/21/22 07/22/22 16:18 19:56 07:42 POC Glucose 168 H 148 H 119 H 07/22/22 11:59 POC Glucose 231 H OUTPATIENT ANTIDIABETIC REGIMEN: * Basaglar 32 units SC HS * Novolog 12 units SC TID * Victoza 1.8 mg SC daily * HbA1C: 5.9% (07/19/22) ASSESSMENT: 07/22: * Pasha received a total of 36 units of insulin yesterday, 8 units basal + 28 units bolus. BSGs were: [id number] mg/dL. * Fasting BSG was 119 mg/dL this AM. Will continue with 8 units of basal daily. * Persistent hyperglycemia at lunchtime. Will tighten Novolog with breakfast only starting tomorrow AM. * Abx changed to Ceftriaxone today for SBP. Undergoing paracentesis today. 07/21: * Patient's BSGs yesterday were [phone] mg/dL. Patient received 24 units of insulin (5 units of basal and 19 units of bolus). * Fasting today is 143 mg/dL. Increase basal by 20% to 8 units. For tomorrow will have scale for Lantus with automatic titrations of 0-10-20%. * Continue Novolog. CF well placed as patient corrected from 221 to 123. BACKGROUND * Patient is a 72 YOM, type 1 diabetic, admitted with spontaneous bacterial peritonitis. Pharmacy consulted to assist with glycemic management. * BSGs 26-876-600sj/dL since admission. Per patient - he has not been eating for several days and did not take his insulin at all yesterday. * Diet ordered - did tolerate breakfast this AM per RN. On IV antibiotics, and has an ANDRES. * Given patient is a type 1 diabetic, will give a small dose of basal insulin this AM, 5 units, given BSG on the lower end and has not been tolerating PO. Novolog parameters loosened for now given decreased PO. Will titrate based on intake and BSG trend. PLAN FOR INPATIENT GLYCEMIC CONTROL: * Hold outpatient Victoza * Basal insulin * Lantus 8 units SC daily * Bolus insulin * NovoLog per scale ACHS or Q6hrs while NPO * Goal Range: Low 110 mg/dL - High 140 mg/dL * Breakfast: Correction Factor: 20 mg/dL/unit; Nutritional / Prandial insulin per carb ratio of 1 unit per 7 grams CHO consumed * Lunch, Dinner, HS: Correction Factor: 35 mg/dL/unit; Nutritional / Prandial insulin per carb ratio of 1 unit per 8 grams CHO consumed
[2022-07-22] MEDS ORDERED: ALBUMIN 25% 100 mL 25 GM/100 ML VIAL IV ONE (13:00)
[2022-07-22] MEDS: SPIRONOLACTONE 100 MG TAB PO SCH (13:25)
[2022-07-22] MEDS: cefTRIAXone SODIUM 2,000 MG in DEXTROSE 5% 50 ML IV SCH (13:35)
--- NOTE | 2022-07-22 14:02 | Ultrasound Report ---
US paracentesis abd w/image CLINICAL HISTORY: 72 years-old Male with ascites. Recurrent ascites COMPARISON: Ultrasound-guided paracentesis 07/19/2022 PROCEDURE: The procedure was explained to the patient in the care including the benefits and possible risks/complications. The patient gave verbal understanding and written consent was obtained. A time -out was performed prior to the start of the procedure. The patient was placed on the ultrasound table in the supine position. Using ultrasound guidance, an appropriate procedure site in the right lower abdomen was marked. This area was then prepped and drap ed in the usual sterile fashion. Local anesthesia was achieved within 1% lidocaine. An 8-Lao cente sis catheter was then inserted. Approximately 5.5 liters of clear, yellowish fluid was removed and 1 L was sent to the lab for analysis. The catheter was removed and external pressure was held to achieve hemostasis. A sterile dressing was applied to the procedure site. The patient tolerated the procedure well without immediate complicati ons. IMPRESSION: Successful ultrasound-guided paracentesis with removal of 5.5 L ascitic fluid ACT 112: Negative or not required by law. The above report was generated using voice recognition software. It may contain grammatical, syntax o r spelling errors. Electronically signed by: Erwin Gomez M.D. 07/22/2022 2:00 PM
[2022-07-22 14:12] LABS: Appearance Peritoneal Fluid Hazy; Color Peritoneal Fluid Yellow; Lymphocytes, Fluid 71 %; Mono,Macrophage,Mesothelial 23 %; Neutrophils, Fluid 6 %; RBC Peritoneal Fluid Auto < 2000 /uL; WBC Peritoneal Fluid Auto 742 /ul (0-300)
[2022-07-22] MEDS ORDERED: FUROSEMIDE 40 MG/4 ML VIAL IV ONE (17:23)
[2022-07-22] MEDS ORDERED: SPIRONOLACTONE 100 MG TAB PO ONE (17:23)
[2022-07-22] MEDS: ATORVASTATIN 40 MG TAB PO SCH (20:27)
--- NOTE | 2022-07-22 22:22 | Hospitalist Progress Note ---
Date of Service July 22, 2022 Assessment & Plan (1) Spontaneous bacterial peritonitis: Plan: Diagnosis of exclusion - new hypotension with generalized abdominal pain Will get paracentesis in the AM hopefully once his BP is better off lisinopril Albumin 100g IV Switch cefepime to Zosyn Follow up blood cultures 07/20- patient with new onset ascites, fluid: Analysis is still pending, awaiting cytology to ensure he does not have malignant ascites. Likely fatty liver with ascites secondary to cirrhosis continued antibiotic coverage for total of 5 days. Low-sodium diet Await paracentesis results Continue albumin as per GI 07/21-continue IV antibiotics and albumin Low-sodium diet 07/22 switched to ceftriaxone ordered diuretic lasix/ spironolactone. (2) Cellulitis: Plan: Possible diagnosis of lower abdomen although appearance is more suggestive of friction from being on the ground given color and lack of warmth Continue to monitor for resolution Continue antibiotics as above Follow up blood cultures (3) Acute hypotension: Plan: ?secondary to SBP as above vs. chronic decompensated cirrhosis vs. cellulitis (appearance more consistent with friction from his fall than cellulitis of lower abdomen given dark appearance and lack of warmth) Start midodrine for hypotension Consider transfer to ICU if MAP < 65 (4) Fall: Plan: Rib fracture as a result of the fall - incentive spirometer I suspect this was a result of his bilateral leg edema making him weak No lateralizing weakness suggestive of an acute stroke and CT head without acute intracranial pathology. (5) Liver cirrhosis: Plan: Unclear cause or if this has ever been worked up Will send ascitic fluid for cytology given extensive cancer history Consult [facility] gastroenterology INR 1.5 -> will given vitamin K 5mg IV to see how reversible this is due to deficiency vs. liver cirrhosis. Plt normal. (6) Bilateral leg edema: Plan: R > L therefore will get US venous doppler to assess for DVT on right side. Suspect secondary to liver cirrhosis as above Given hypotension will avoid diuretics on admission (7) ANDRES (acute kidney injury): Plan: Concerning for hepatorenal syndrome. Should improve with improvement in his BP with midodrine as above. UA pending on admission (8) Weakness: Plan: Multifactorial with possible infection, liver cirrhosis, renal failure B12 level for peripheral neuropathy PT/OT (9) Type I diabetes mellitus, well controlled: Plan: HbA1C 6.3 in February 2022 Usually takes Lantus 32 units at night and NovoLog 12 units 3 times daily Glucose 84 on admission therefore decrease Lantus to 16 units HS Novolog: --Goal BSG Range: Low 110 mg/dL, High 140 mg/dL --Correction Factor: 20 mg/dL/unit --Carbohydrate ratio = 7 g/unit --BSGs ACHS if eating, q6h if npo Consult pharmacy for glycemic control for ongoing dosing Plan VTE Prophylaxis - deferred on admission due to pending US venous doppler and paracentesis planned for tomorrow Diet - low Na, T1DM Disposition - admit to PCU Admission and Anticipated Discharge Date Admission Date: July 18, 2022 Subjective 72 yo male reports still having some leg edema. Review of Systems Review of Systems: All systems reviewed & are unremarkable except as noted in HPI & below Physical Exam Physical Exam: Head and ENT no thyroid enlargement trachea midline Cardiovascular S1-S2 are normal no S3 Lungs bilateral air entry fair no wheezing Abdomen soft positive bowel sounds no rebound tenderness Ascites improved Extremity shows trace edema Neurologically no focal deficits Skin shows no cyanosis Results & Data Results & Data ([facility]) Vital Signs (Past 12 Hours) Vital Signs Temp Pulse Resp BP BP Pulse Ox O2 Del Method 07/22/22 15:00 79 07/22/22 15:47 36.8 C 83 20 121/53 L 97 Nasal Cannula 07/22/22 12:13 36.9 C 88 20 130/55 L 96 Nasal Cannula O2 Flow Rate 07/22/22 15:00 07/22/22 15:47 2 07/22/22 12:13 2 PG Care Time/CCT Total # of Minutes Spent Total Time Spent with Patient: Total time spent is greater than 50% in coordination of care (as documented) at patient's floor/unit and/or counseling patient: Coding Level of Care Code 17265 SUB INP/OBS CARE 2/35MIN Diagnoses Spontaneous bacterial peritonitis K65.2 Cellulitis L03.90 Acute hypotension I95.9 Fall W19.XXXA Liver cirrhosis K74.60 Bilateral leg edema R60.0 ANDRES (acute kidney injury) N17.9 Weakness R53.1 Type I diabetes mellitus, well controlled E10.9
[2022-07-23] MEDS: LEVOTHYROXINE SODIUM 88 MCG TABLET PO SCH (04:22)
[2022-07-23 06:29] LABS: Hematocrit (blood only) 28.8 % (42.0-52.0); Hemoglobin 9.4 g/dl (14.0-18.0); Mean Corpuscular Hemoglobin 31.2 pg (25.0-34.0); Mean Corpuscular Hgb Conc 32.6 g/dL (32.0-36.0); Mean Corpuscular Volume 95.7 fL (80.0-100.0); Mean Platelet Volume 10.3 fL (9.4-12.4); Platelet Count 135 K/uL (130-400); RDW Coefficient of Variation 13.6 % (11.5-14.5); RDW Standard Deviation 47.4 fL (36.4-46.3); Red Blood Count 3.01 M/uL (4.70-6.10); White Blood Count 4.91 K/ul (4.8-10.8)
[2022-07-23 08:00] LABS: Albumin Globulin Ratio 1.1 (0.9-2); Albumin Level 3.2 gm/dl (3.4-5.0); BUN Creatinine Ratio 27.4 (10-20); Calcium 8.6 mg/dl (8.5-10.1); Creatinine Clr Calc Pharmacy 81.1 ml/min; Est GFR (African American) 91.7 ml/min; Est GFR (Non-African American) 79.1 ml/min; Potassium 3.9 mmol/L (3.5-5.1); Total Protein 6.2 gm/dl (6.0-8.3)
[2022-07-23] MEDS: MIDODRINE HCL 2.5 MG TAB PO SCH ×3 (08:46→17:36)
[2022-07-23] MEDS: PANTOprazole 40 MG TAB PO SCH (08:46)
[2022-07-23] MEDS: SPIRONOLACTONE 100 MG TAB PO SCH (08:46)
[2022-07-23] MEDS: POLYETHYLENE (MIRALAX) 17 GM PACK PO SCH (08:47)
[2022-07-23] MEDS: LANTUS PER UNIT CHARGE SQ SCH (08:57)
[2022-07-23] MEDS: INSULIN ASPART PER UNIT SC SCH ×4 (08:58→21:50)
--- NOTE | 2022-07-23 09:13 | Gastroenterology Progress Note ---
Date of Service July 23, 2022 Assessment & Plan (1) Liver cirrhosis: (2) Henry's esophagus: (3) Ascites: (4) Spontaneous bacterial peritonitis: Plan 1. For SBP: Continue antibiotics. When ready for discharge, can change to Cipro 500mg BID. Needs a total of 10 days tx, then life long SBP prevention with Cipro 500mg po daily. 2. Continue Furosemide 40/Spironolactone 100 daily and follow renal function. 3. EGD cecilia for 10/15/22 for f/u Henry's/esophageal adenocarcinoma. 4. OP Hepatology referral was placed. Our office will contact pt to arrange. 5. Low salt, regular diet. Admission and Anticipated Discharge Date Admission Date: July 18, 2022 Supervising Physician Co-Signing Physician Notes I performed a history and physical examination of the patient today, including specifically on physical exam - soft abdomen. I have discussed the patient's management with the advanced practitioner. Please refer to the nurse practitioner's note for the documented findings and plan of care. SBP cleared on repeat tap. Kidney function normalized. He is now on diuretics. Follow up with Hepatology as OP. Recall GI if needed. Subjective 72 yo male admitted 07/19 for fall. New cirrhosis w ascites on imaging. SBP on 5L paracentesis on 07/19. Much improved on 5.5L paracentesis yesterday: WBC >300- >742; % neutrophils also improved: 70%->6%. Cytology returned - no evidence of malignancy. Review of Systems Review of Systems: ROS: Gen: + general weakness/falls,, + 50 lbs weight gain in past 2 yrs. No fevers. No confusion. Good appetite. Eyes: No eye redness, or pain, no recent vision changes Resp: No SOB, no cough Cardio: No palpitations/irregular beats, no chest pain GI: + enlarging abd girth; see HPI, otherwise (-). : Denies pain on urination Skin: No jaundice, itching or new rashes Ext: + lower leg edema Physical Exam Constitutional: WD/WN, vitals as above + obese Eyes: PERRL, conjunctivae normal, anicteric sclerae ENMT: external ear and nose normal, oropharynx normal Neck: trachea midline, no thyromegaly Respiratory: normal respiratory effort; no cough Cardiovascular: Rate/Rhythm: regular rate and regular rhythm Heart Sounds: no murmur Gastrointestinal (Abdomen): Moderate/large ascites, soft, non tender, no palpable masses, BS normal. Musculoskeletal: no cyanosis or clubbing, extremities motor strength 5/5 Neurologic: PERRL, EOMI, accommodation nl, no face palsy, no dysarthria Psychiatric: A+Ox3, euthymic affect Lymphatic: no cervical or axillary lymphadenopathy Results & Data ([facility]) Vital Signs (Past 12 Hours) Vital Signs Temp Pulse Pulse Resp BP Pulse Ox O2 Del Method 07/23/22 08:08 36.9 C 86 18 105/52 L 96 Room Air 07/23/22 03:34 36.9 C 89 25 H 101/45 L 96 Nasal Cannula 07/22/22 22:06 81 07/22/22 23:26 36.4 C L 84 23 95/48 L 95 Nasal Cannula O2 Flow Rate 07/23/22 08:08 07/23/22 03:34 3 07/22/22 22:06 07/22/22 23:26 3 Laboratory Results WBC 4.9, Hb 9.4, Hct 28.8, Plts 135, PT 16, INR 1.6, Na 139, K 3.9, Cl 105, CO2 29, BUN 26, Cr 0.9, glucose 122. See HPI for ascitic fluic analysis. Diagnostic Findings Successful ultrasound-guided paracentesis with removal of 5.5 L ascitic fluid
[2022-07-23] MEDS ORDERED: FUROSEMIDE 40 MG/4 ML VIAL IV ONE (09:21)
--- NOTE | 2022-07-23 10:28 | Surgery Consultation ---
Date of Consultation July 23, 2022 Assessment & Plan (1) Spontaneous bacterial peritonitis: (2) Ascites: (3) Liver cirrhosis: Plan 72 year-old male s/p fall presented to ED and found to have cirrhosis with ascites and spontaneous bacterial peritonitis s/p US guided paracentesis x 2 (07/19 and 07/22) now with leakage of ascites from paracentesis site. Plan: Discussed with patient need for placement of suture to close incision site to prevent further leakage. Can do at bedside under local anesthesia. Patient was agreeable to proceed, informed consent obtained Keep dressing on today, change tomorrow and daily. Keep suture in for 2 weeks and then can be removed. Procedure: Patient positioned on hospital bed in supine position. The area of the right lower abdomen of prepped with betadine under sterile conditions. Using 2% Lidocaine, area was anesthetized with 22 gauge needle with total of 5 cc. Once area anesthetized, the incision was closed with a 3-0 nylon suture. Area was covered with gauze and tape. Patient tolerated procedure without difficulty. Dr. Bullock was present during procedure. Thank you for consultation, please call with any questions/concerns. History of Present Illness Reason for Consultation: Leaking from paracentesis site Requesting Physician: Garland Raygoza Attending Physician: Garland Raygoza History of Present Illness Mr. Holloway is a 72 year old male admitted s/p fall found to have cirrhosis with ascites. Has undergone two paracentesis with 5 liters removed each time on 07/19 and 07/22. Our services consulted for leaking paracentesis site. He is awaiting discharge to inpatient rehab. He is not having any abdominal pain at draining site. Per nurse, has had to change dressing a few times already and saturing two ABD pads. Allergies Allergy/AdvReac Type Severity Reaction Status Date / Time No Known Allergies Allergy Verified 07/18/22 14:26 Home Medications Medication Instructions Recorded Confirmed Type multivitamin 1 tab PO QPM 01/26/19 07/18/22 History lancets 33 gauge (OneTouch Delica #100 ea 06/27/21 07/18/22 History Lancets) lisinopril 20 mg tablet 20 mg PO QPM 10/01/21 07/18/22 History OneTouch Verio test strips (blood #300 ea 02/06/22 07/18/22 Rx sugar diagnostic) pen needle, diabetic 32 gauge x #500 ea 02/06/22 07/18/22 Rx " (BD Ultra-Fine Pascale Pen Needle) aspirin 81 mg tablet,delayed 81 mg PO DAILY 07/18/22 07/18/22 History release atorvastatin 40 mg tablet 40 mg PO HS 07/18/22 07/18/22 History insulin aspart U-100 100 unit/mL 12 unit subcut TID 07/18/22 07/18/22 History (3 mL) subcutaneous pen (Novolog FlexPen U-100 Insulin aspart) insulin glargine 100 unit/mL (3 32 unit subcut HS 07/18/22 07/18/22 History mL) subcutaneous pen (Basaglar KwikPen U-100 Insulin) levothyroxine 88 mcg tablet 88 mcg PO QAM 07/18/22 07/18/22 History liraglutide 0.6 mg/0.1 mL (18 mg/3 1.8 mg subcut DAILY 07/18/22 07/18/22 History mL) subcutaneous pen injector (UpDroidza 3-Joshua) omeprazole 40 mg capsule,delayed 40 mg PO DAILY 07/18/22 07/18/22 History release Patient History Medical History Henry's esophagus BCC (basal cell carcinoma of skin) Bilateral nephrolithiasis Diabetes mellitus, type 2 Esophageal adenocarcinoma History of, diagnosed 11/2021 Gallstones GERD (gastroesophageal reflux disease) History of colon cancer SURGERY>RADIATION THERAPY History of eye cancer LEFT Hyperlipidemia Hypertension Hypothyroidism ? THYROID CANCER *PT STATES HAD RADIATION 5 TIMES TO NECK Inguinal hernia, bilateral Melanoma ON RT ARM. S/p neck dissection and a parotidectomy on 11/16/2015 following failed radiation therapy for the metastatic disease from the skin primary. Nonalcoholic fatty liver disease Rib fracture posterior right 11th SCC (squamous cell carcinoma) Surgical History H/O colonoscopy H/O eye surgery SURGERY FOR CANCER ON LEFT EYE/UNSURE OF DETAILS H/O right hemicolectomy History of esophagogastroduodenoscopy (EGD) History of left cataract surgery History of surgery on arm LYMPH NODES REMOVED FROM RT ARM (RESTRICTION) History of tooth extraction Family History Mother Diabetes Father Diabetes Other Hyperlipidemia No family history of adverse response to anesthesia Stroke Denies family history of Ovarian cancer Prostate cancer Breast cancer Colorectal cancer Social History Smoking Status: Former smoker Age Started Using Tobacco: 11; Age Quit Using Tobacco: 62; packs per day: 1.5; Cigarettes Per Day: 7 YEARS AGO; Second Hand Exposure: Yes; Do You Dip or Chew Tobacco: No; Tobacco Cessation Education Requested by Patient: No Hx Alcohol Use: No Hx Substance Use: No Preferred Language: Tuvaluan Communication Ability: Effective Hearing Ability: Normal [employer] Duty [employer] Required: No Beliefs That Will Affect Care: None marital status: / Current Living Situation: Alone current occupational status: retired Other Information That Helps Us Care for You: No Feels Safe at Home: Yes Safety Concerns: Feels Safe At This Time Seatbelt Use: always Sunscreen Use: Yes Assistive Devices: Cane Physical Exam Constitutional: WD/WN, vitals as above + obese, cooperative and comfortable; no acute distress Gastrointestinal (Abdomen): Inspection/Auscultation: abdomen normal to inspection and + abdomen distended Percussion/Palpation: abdomen soft; abdomen nontender, no guarding, abdomen not rigid and abdomen not firm RLQ small incision at site of US guided paracentesis without surrounding erythema or induration. Slow leakage of ascitic fluid. Psychiatric: A+Ox3, euthymic affect Results & Data ([facility]) Vital Signs (Past 12 Hours) Vital Signs Temp Pulse Resp BP Pulse Ox O2 Del Method O2 Flow Rate 07/23/22 08:08 36.9 C 86 18 105/52 L 96 Room Air 07/23/22 03:34 36.9 C 89 25 H 101/45 L 96 Nasal Cannula 3 07/22/22 23:26 36.4 C L 84 23 95/48 L 95 Nasal Cannula 3 Laboratory Results 07/23/22 07/23/22 07/23/22 Range/Units 11:14 07:12 05:59 WBC (4.8-10.8) K/ul RBC (4.70-6.10) M/uL Hgb (14.0-18.0) g/dl Hct (42.0-52.0) % MCV (80.0-100.0) fL MCH (25.0-34.0) pg MCHC (32.0-36.0) g/dL RDW Std Deviation (36.4-46.3) fL RDW Coeff of Merritt (11.5-14.5) % Plt Count (130-400) K/uL MPV (9.4-12.4) fL Sodium (136-145) mmol/L Potassium (3.5-5.1) mmol/L Chloride (98-107) mmol/L Carbon Dioxide (21-32) mmol/L Anion Gap (3-11) BUN (6-23) mg/dl Creatinine (0.6-1.4) mg/dl Est Cr Clr Drug Dosing ml/min Est GFR ( Amer) ml/min Est GFR (Non-Af Amer) ml/min BUN/Creatinine Ratio (10-20) Glucose (70-99(Fasting)) mg/dl POC Glucose 192 H 122 H (70-99) mg/dl Calcium (8.5-10.1) mg/dl Total Bilirubin (0.2-1.0) mg/dl AST (13-39) U/L ALT (7-52) U/L Alkaline Phosphatase (34-104) U/L B-Natriuretic Peptide 173 H (0-100) pg/ml Total Protein (6.0-8.3) gm/dl Albumin (3.4-5.0) gm/dl Globulin (2.5-4.0) gm/dl Albumin/Globulin Ratio (0.9-2) Fluid Neutrophils % % Fluid Lymphocytes % % Fluid Meso/Macro/Metcalfe % % Fluid Comment Peritoneal Color Peritoneal Appearance Peritoneal WBC (Auto) (0-300) /ul Peritoneal RBC (Auto) /uL 07/23/22 07/23/22 07/22/22 Range/Units 05:59 05:59 Unknown WBC 4.91 (4.8-10.8) K/ul RBC 3.01 L (4.70-6.10) M/uL Hgb 9.4 L (14.0-18.0) g/dl Hct 28.8 L (42.0-52.0) % MCV 95.7 (80.0-100.0) fL MCH 31.2 (25.0-34.0) pg MCHC 32.6 (32.0-36.0) g/dL RDW Std Deviation 47.4 H (36.4-46.3) fL RDW Coeff of Merritt 13.6 (11.5-14.5) % Plt Count 135 (130-400) K/uL MPV 10.3 (9.4-12.4) fL Sodium 139 (136-145) mmol/L Potassium 3.9 (3.5-5.1) mmol/L Chloride 105 (98-107) mmol/L Carbon Dioxide 29 (21-32) mmol/L Anion Gap 5 (3-11) BUN 26 H (6-23) mg/dl Creatinine 0.95 D (0.6-1.4) mg/dl Est Cr Clr Drug Dosing 81.1 ml/min Est GFR ( Amer) 91.7 ml/min Est GFR (Non-Af Amer) 79.1 ml/min BUN/Creatinine Ratio 27.4 H (10-20) Glucose 120 H (70-99(Fasting)) mg/dl POC Glucose (70-99) mg/dl Calcium 8.6 (8.5-10.1) mg/dl Total Bilirubin 1.0 (0.2-1.0) mg/dl AST 59 H (13-39) U/L ALT 44 (7-52) U/L Alkaline Phosphatase 114 H (34-104) U/L B-Natriuretic Peptide (0-100) pg/ml Total Protein 6.2 (6.0-8.3) gm/dl Albumin 3.2 L (3.4-5.0) gm/dl Globulin 3.0 (2.5-4.0) gm/dl Albumin/Globulin Ratio 1.1 (0.9-2) Fluid Neutrophils % 6 % Fluid Lymphocytes % 71 % Fluid Meso/Macro/Metcalfe % 23 % Fluid Comment Peritoneal Color Yellow Peritoneal Appearance Hazy Peritoneal WBC (Auto) 742 H (0-300) /ul Peritoneal RBC (Auto) < 2000 /uL 07/22/22 07/22/22 07/22/22 Range/Units 20:40 16:36 11:59 WBC (4.8-10.8) K/ul RBC (4.70-6.10) M/uL Hgb (14.0-18.0) g/dl Hct (42.0-52.0) % MCV (80.0-100.0) fL MCH (25.0-34.0) pg MCHC (32.0-36.0) g/dL RDW Std Deviation (36.4-46.3) fL RDW Coeff of Merritt (11.5-14.5) % Plt Count (130-400) K/uL MPV (9.4-12.4) fL Sodium (136-145) mmol/L Potassium (3.5-5.1) mmol/L Chloride (98-107) mmol/L Carbon Dioxide (21-32) mmol/L Anion Gap (3-11) BUN (6-23) mg/dl Creatinine (0.6-1.4) mg/dl Est Cr Clr Drug Dosing ml/min Est GFR ( Amer) ml/min Est GFR (Non-Af Amer) ml/min BUN/Creatinine Ratio (10-20) Glucose (70-99(Fasting)) mg/dl POC Glucose 164 H 179 H 231 H (70-99) mg/dl Calcium (8.5-10.1) mg/dl Total Bilirubin (0.2-1.0) mg/dl AST (13-39) U/L ALT (7-52) U/L Alkaline Phosphatase (34-104) U/L B-Natriuretic Peptide (0-100) pg/ml Total Protein (6.0-8.3) gm/dl Albumin (3.4-5.0) gm/dl Globulin (2.5-4.0) gm/dl Albumin/Globulin Ratio (0.9-2) Fluid Neutrophils % % Fluid Lymphocytes % % Fluid Meso/Macro/Metcalfe % % Fluid Comment Peritoneal Color Peritoneal Appearance Peritoneal WBC (Auto) (0-300) /ul Peritoneal RBC (Auto) /uL
[2022-07-23] MEDS ORDERED: LIDOCAINE 2% LOCAL 50 ML VIAL INFIL ONE (10:37)
[2022-07-23] MEDS ORDERED: LIDOCAINE 2% LOCAL 50 ML VIAL ONE (10:39)
[2022-07-23] MEDS: cefTRIAXone SODIUM 2,000 MG in DEXTROSE 5% 50 ML IV SCH (12:31)
--- NOTE | 2022-07-23 20:55 | Hospitalist Progress Note ---
Date of Service July 23, 2022 Assessment & Plan (1) Spontaneous bacterial peritonitis: Plan: Diagnosis of exclusion - new hypotension with generalized abdominal pain Will get paracentesis in the AM hopefully once his BP is better off lisinopril Albumin 100g IV Switch cefepime to Zosyn Follow up blood cultures 07/20- patient with new onset ascites, fluid: Analysis is still pending, awaiting cytology to ensure he does not have malignant ascites. Likely fatty liver with ascites secondary to cirrhosis continued antibiotic coverage for total of 5 days. Low-sodium diet Await paracentesis results Continue albumin as per GI 07/21-continue IV antibiotics and albumin Low-sodium diet 07/22 switched to ceftriaxone ordered diuretic lasix/ spironolactone. 07/23 ordered diuretics, due to leaking from paracenthesis site, consulted surgery to suture area. (2) Cellulitis: Plan: Possible diagnosis of lower abdomen although appearance is more suggestive of friction from being on the ground given color and lack of warmth Continue to monitor for resolution Continue antibiotics as above Follow up blood cultures (3) Acute hypotension: Plan: ?secondary to SBP as above vs. chronic decompensated cirrhosis vs. cellulitis (appearance more consistent with friction from his fall than cellulitis of lower abdomen given dark appearance and lack of warmth) Start midodrine for hypotension Consider transfer to ICU if MAP < 65 (4) Fall: Plan: Rib fracture as a result of the fall - incentive spirometer I suspect this was a result of his bilateral leg edema making him weak No lateralizing weakness suggestive of an acute stroke and CT head without acute intracranial pathology. (5) Liver cirrhosis: Plan: Unclear cause or if this has ever been worked up Will send ascitic fluid for cytology given extensive cancer history Consult [facility] gastroenterology INR 1.5 -> will given vitamin K 5mg IV to see how reversible this is due to deficiency vs. liver cirrhosis. Plt normal. likely from cirrhosis (6) Bilateral leg edema: Plan: R > L therefore will get US venous doppler to assess for DVT on right side. Suspect secondary to liver cirrhosis as above Given hypotension will avoid diuretics on admission (7) ANDRES (acute kidney injury): Plan: Concerning for hepatorenal syndrome. Should improve with improvement in his BP with midodrine as above. UA pending on admission (8) Weakness: Plan: Multifactorial with possible infection, liver cirrhosis, renal failure B12 level for peripheral neuropathy PT/OT (9) Type I diabetes mellitus, well controlled: Plan: HbA1C 6.3 in February 2022 Usually takes Lantus 32 units at night and NovoLog 12 units 3 times daily Glucose 84 on admission therefore decrease Lantus to 16 units HS Novolog: --Goal BSG Range: Low 110 mg/dL, High 140 mg/dL --Correction Factor: 20 mg/dL/unit --Carbohydrate ratio = 7 g/unit --BSGs ACHS if eating, q6h if npo Consult pharmacy for glycemic control for ongoing dosing Plan VTE Prophylaxis - deferred on admission due to pending US venous doppler and paracentesis planned for tomorrow Diet - low Na, T1DM Disposition - admit to PCU Admission and Anticipated Discharge Date Admission Date: July 18, 2022 Subjective 72 yo man reports feeling better today. He is able to ambulate with more ease today, as his legs are less swollen. Earlier in the day, his paracenthesis was leaking. Review of Systems Review of Systems: All systems reviewed & are unremarkable except as noted in HPI & below Physical Exam Physical Exam: Head and ENT no thyroid enlargement trachea midline Cardiovascular S1-S2 are normal no S3 Lungs bilateral air entry fair no wheezing Abdomen soft positive bowel sounds no rebound tenderness Ascites improved Extremity shows trace edema Neurologically no focal deficits Skin shows no cyanosis Results & Data Results & Data ([facility]) Vital Signs (Past 12 Hours) Vital Signs Temp Pulse Resp BP Pulse Ox O2 Del Method 07/23/22 19:47 36.9 C 84 22 135/53 L 92 Room Air 07/23/22 15:39 36.8 C 96 H 20 101/53 L 92 Room Air 07/23/22 11:37 36.9 C 86 22 121/65 91 Room Air PG Care Time/CCT Total # of Minutes Spent Total Time Spent with Patient: Total time spent is greater than 50% in coordination of care (as documented) at patient's floor/unit and/or counseling patient: Coding Level of Care Code 20866 SUB INP/OBS CARE 2/35MIN Diagnoses Spontaneous bacterial peritonitis K65.2 Cellulitis L03.90 Acute hypotension I95.9 Fall W19.XXXA Liver cirrhosis K74.60 Bilateral leg edema R60.0 ANDRES (acute kidney injury) N17.9 Weakness R53.1 Type I diabetes mellitus, well controlled E10.9
[2022-07-23] MEDS: ATORVASTATIN 40 MG TAB PO SCH (21:46)
[2022-07-24] MEDS: LEVOTHYROXINE SODIUM 88 MCG TABLET PO SCH (06:34)
[2022-07-24 06:54] LABS: Hematocrit (blood only) 30.2 % (42.0-52.0); Hemoglobin 9.9 g/dl (14.0-18.0); Mean Corpuscular Hemoglobin 31.4 pg (25.0-34.0); Mean Corpuscular Hgb Conc 32.8 g/dL (32.0-36.0); Mean Corpuscular Volume 95.9 fL (80.0-100.0); Mean Platelet Volume 10.2 fL (9.4-12.4); Platelet Count 134 K/uL (130-400); RDW Coefficient of Variation 13.7 % (11.5-14.5); Red Blood Count 3.15 M/uL (4.70-6.10); White Blood Count 6.09 K/ul (4.8-10.8)
[2022-07-24 07:16] LABS: INR 1.4 (0.9-1.1); Prothrombin Time 14.6 Seconds (9.0-12.0)
[2022-07-24 07:17] LABS: Albumin Level 3.2 gm/dl (3.4-5.0); BUN Creatinine Ratio 27.5 (10-20); Calcium 8.8 mg/dl (8.5-10.1); Creatinine Clr Calc Pharmacy 85.1 ml/min; Est GFR (African American) 96.6 ml/min; Est GFR (Non-African American) 83.3 ml/min; Globulin 3.1 gm/dl (2.5-4.0); Potassium 3.9 mmol/L (3.5-5.1); Total Protein 6.3 gm/dl (6.0-8.3)
--- NOTE | 2022-07-24 10:14 | Pharmacy Report ---
Pharmacy Glycemic Short Note 2 - Date of Service July 24, 2022 - Glycemic Short BSG Results (Last 24 hours): 07/23/22 07/23/22 07/23/22 11:14 16:23 20:12 Glucose POC Glucose 192 H 191 H 180 H 07/24/22 07/24/22 06:20 07:30 Glucose 124 H POC Glucose 110 H OUTPATIENT ANTIDIABETIC REGIMEN: * Basaglar 32 units SC HS * Novolog 12 units SC TID * Victoza 1.8 mg SC daily * HbA1C: 5.9% (07/19/22) ASSESSMENT: 07/24 * Stressors stable * AM fasting BSG in goal range - continue Lantus * Post-prandial BSG's all >= 180mg/dL yesterday, although not significantly. Will slightly tighten CHO ratios 07/22: * Pasha received a total of 36 units of insulin yesterday, 8 units basal + 28 units bolus. BSGs were: 164-775-188-148 mg/dL. * Fasting BSG was 119 mg/dL this AM. Will continue with 8 units of basal daily. * Persistent hyperglycemia at lunchtime. Will tighten Novolog with breakfast only starting tomorrow AM. * Abx changed to Ceftriaxone today for SBP. Undergoing paracentesis today. 07/21: * Patient's BSGs yesterday were [phone] mg/dL. Patient received 24 units of insulin (5 units of basal and 19 units of bolus). * Fasting today is 143 mg/dL. Increase basal by 20% to 8 units. For tomorrow w ill have scale for Lantus with automatic titrations of 0-10-20%. * Continue Novolog. CF well placed as patient corrected from 221 to 123. BACKGROUND * Patient is a 72 YOM, type 1 diabetic, admitted with spontaneous bacterial peritonitis. Pharmacy consulted to assist with glycemic management. * BSGs [phone]/dL since admission. Per patient - he has not been eating for several days and did not take his insulin at all yesterday. * Diet ordered - did tolerate breakfast this AM per RN. On IV antibiotics, and has an ANDRES. * Given patient is a type 1 diabetic, will give a small dose of basal insulin this AM, 5 units, given BSG on the lower end and has not been tolerating PO. Novolog parameters loosened for now given decreased PO. Will titrate based on intake and BSG trend. PLAN FOR INPATIENT GLYCEMIC CONTROL: * Hold outpatient Victoza * Basal insulin * Lantus 8 units SC daily * Bolus insulin * NovoLog per scale ACHS or Q6hrs while NPO * Goal Range: Low 110 mg/dL - High 140 mg/dL * Breakfast: Correction Factor: 20 mg/dL/unit; Nutritional / Prandial insulin per carb ratio of 1 unit per 6 grams CHO consumed * Lunch, Dinner, HS: Correction Factor: 30 mg/dL/unit; Nutritional / Prandial insulin per carb ratio of 1 unit per 7 grams CHO consumed
[2022-07-24] MEDS: INSULIN ASPART PER UNIT SC SCH ×4 (10:27→20:17)
[2022-07-24] MEDS: MIDODRINE HCL 2.5 MG TAB PO SCH ×3 (10:29→17:43)
[2022-07-24] MEDS: LANTUS PER UNIT CHARGE SQ SCH (10:29)
[2022-07-24] MEDS: POLYETHYLENE (MIRALAX) 17 GM PACK PO SCH (10:30)
[2022-07-24] MEDS: PANTOprazole 40 MG TAB PO SCH (10:30)
[2022-07-24] MEDS: SPIRONOLACTONE 100 MG TAB PO SCH (10:30)
[2022-07-24] MEDS ORDERED: FUROSEMIDE 40 MG/4 ML VIAL IV ONE (11:56)
[2022-07-24] MEDS: cefTRIAXone SODIUM 2,000 MG in DEXTROSE 5% 50 ML IV SCH (13:07)
--- NOTE | 2022-07-24 15:35 | Ultrasound Report ---
US abdomen ltd ascites CLINICAL HISTORY: SBP COMPARISON STUDY: Ultrasound guided paracentesis July 22, 2022. FINDINGS: Patient presented today for possible paracentesis. Minimal ascites was noted. The amount of fluid was insufficient for paracentesis. Therefore, no procedure was performed. IMPRESSION: Minimal ascites, insufficient for paracentesis. Therefore, no procedure performed. ACT 112: Negative or not required by law. Electronically signed by: Viet Aguilar M.D. 07/24/2022 3:34 PM
--- NOTE | 2022-07-24 21:18 | Hospitalist Progress Note ---
Date of Service July 24, 2022 Assessment & Plan (1) Spontaneous bacterial peritonitis: Plan: Sepsis POA Possible UTI (though main problem is the SBP Diagnosis of exclusion - new hypotension with generalized abdominal pain Will get paracentesis in the AM hopefully once his BP is better off lisinopril Albumin 100g IV Switch cefepime to Zosyn Follow up blood cultures 07/20- patient with new onset ascites, fluid: Analysis is still pending, awaiting cytology to ensure he does not have malignant ascites. Likely fatty liver with ascites secondary to cirrhosis continued antibiotic coverage for total of 5 days. Low-sodium diet Await paracentesis results Continue albumin as per GI 07/21-continue IV antibiotics and albumin Low-sodium diet 07/22 switched to ceftriaxone, as this has better penetration to his ascitic fluid ordered diuretic lasix/ spironolactone. 07/23 ordered diuretics, due to leaking from paracenthesis site, consulted surgery to suture area. 2-1 Culture in the peritoneal fluid showing E faecalis. Ceftriaxone will not cover this. Second sample does not show this bacteria, however, patient appeared to have been on unasyn which would cover this. Will resume unasyn at 3gr IV Q6H Consulted ID. Plan would be to continue until WBC below 250, will repeat paracenthesis in AM. May just consider continuing for a total of 5 days from today if WBC remain elevated. [facility] and antibiotics could be continued there. (2) Cellulitis: Plan: Possible diagnosis of lower abdomen although appearance is more suggestive of friction from being on the ground given color and lack of warmth Continue to monitor for resolution Continue antibiotics as above Improving. (3) Acute hypotension: Plan: ?secondary to SBP as above vs. chronic decompensated cirrhosis vs. cellulitis (appearance more consistent with friction from his fall than cellulitis of lower abdomen given dark appearance and lack of warmth) Start midodrine for hypotension Consider transfer to ICU if MAP < 65 (4) Fall: Plan: Rib fracture as a result of the fall - incentive spirometer I suspect this was a result of his bilateral leg edema making him weak No lateralizing weakness suggestive of an acute stroke and CT head without acute intracranial pathology. (5) Liver cirrhosis: Plan: Unclear cause or if this has ever been worked up Will send ascitic fluid for cytology given extensive cancer history Consult [facility] gastroenterology INR 1.5 -> will given vitamin K 5mg IV to see how reversible this is due to deficiency vs. liver cirrhosis. Plt normal. likely from cirrhosis (6) Bilateral leg edema: Plan: R > L therefore will get US venous doppler to assess for DVT on right side. Suspect secondary to liver cirrhosis as above Given hypotension will avoid diuretics on admission (7) ANDRES (acute kidney injury): Plan: Concerning for hepatorenal syndrome. Should improve with improvement in his BP with midodrine as above. UA pending on admission (8) Weakness: Plan: Multifactorial with possible infection, liver cirrhosis, renal failure B12 level for peripheral neuropathy PT/OT (9) Type I diabetes mellitus, well controlled: Plan: HbA1C 6.3 in February 2022 Usually takes Lantus 32 units at night and NovoLog 12 units 3 times daily Glucose 84 on admission therefore decrease Lantus to 16 units HS Novolog: --Goal BSG Range: Low 110 mg/dL, High 140 mg/dL --Correction Factor: 20 mg/dL/unit --Carbohydrate ratio = 7 g/unit --BSGs ACHS if eating, q6h if npo Consult pharmacy for glycemic control for ongoing dosing Plan VTE Prophylaxis - deferred as patient will have paracenthesis Diet - low Na, T1DM Disposition - admit to PCU Admission and Anticipated Discharge Date Admission Date: July 18, 2022 Subjective Patient reports feeling better. He states his legs are less swollen and he is able to move. Review of Systems Review of Systems: All systems reviewed & are unremarkable except as noted in HPI & below Physical Exam Physical Exam: Head and ENT no thyroid enlargement trachea midline Cardiovascular S1-S2 are normal no S3 Lungs bilateral air entry fair no wheezing Abdomen soft positive bowel sounds no rebound tenderness Ascites improved Extremity shows trace edema Neurologically no focal deficits Skin shows no cyanosis Results & Data Results & Data ([facility]) Vital Signs (Past 12 Hours) Vital Signs Temp Pulse Resp BP Pulse Ox O2 Del Method 07/24/22 19:18 36.7 C 80 18 123/57 L 91 Room Air 07/24/22 16:06 36.3 C L 84 18 130/68 94 Room Air 07/24/22 10:56 36.6 C 105 H 18 135/64 91 Room Air PG Care Time/CCT Total # of Minutes Spent Total Time Spent with Patient: Total time spent is greater than 50% in coordination of care (as documented) at patient's floor/unit and/or counseling patient: Coding Level of Care Code 46257 SUB INP/OBS CARE 350MIN Diagnoses Spontaneous bacterial peritonitis K65.2 Cellulitis L03.90 Acute hypotension I95.9 Fall W19.XXXA Liver cirrhosis K74.60 Bilateral leg edema R60.0 ANDRES (acute kidney injury) N17.9 Weakness R53.1 Type I diabetes mellitus, well controlled E10.9
[2022-07-24] MEDS: ATORVASTATIN 40 MG TAB PO SCH (21:24)
[2022-07-24] MEDS: AMPICILLIN/SULBACTAM SOD 3,000 MG in 0.9 % SODIUM CHLORIDE 100 ML IV SCH (23:12)
[2022-07-25] MEDS: AMPICILLIN/SULBACTAM SOD 3,000 MG in 0.9 % SODIUM CHLORIDE 100 ML IV SCH ×4 (06:00→22:36)
[2022-07-25] MEDS: LEVOTHYROXINE SODIUM 88 MCG TABLET PO SCH (06:00)
[2022-07-25] MEDS ORDERED: HEPARIN SOD 5,000 UNIT/0.5 ML VIAL SQ STA (06:34)
[2022-07-25 07:47] LABS: INR 1.3 (0.9-1.1)
[2022-07-25 07:53] LABS: Hematocrit (blood only) 29.6 % (42.0-52.0); Hemoglobin 9.8 g/dl (14.0-18.0); Mean Corpuscular Hemoglobin 31.3 pg (25.0-34.0); Mean Corpuscular Hgb Conc 33.1 g/dL (32.0-36.0); Mean Corpuscular Volume 94.6 fL (80.0-100.0); Mean Platelet Volume 10.5 fL (9.4-12.4); Platelet Count 137 K/uL (130-400); RDW Coefficient of Variation 13.8 % (11.5-14.5); RDW Standard Deviation 46.9 fL (36.4-46.3); Red Blood Count 3.13 M/uL (4.70-6.10); White Blood Count 6.37 K/ul (4.8-10.8)
--- NOTE | 2022-07-25 08:11 | Hospitalist Progress Note ---
Date of Service July 25, 2022 Assessment & Plan (1) Spontaneous bacterial peritonitis: Plan: acute Sepsis POA secondary to spontaneous Bacterial peritonitis, resolving cultures have grown enterococcus faecalis from ascitic fluid Unasyn at 3gr IV Q6H, Consulted ID recommend 5-7 days of vancomycin, since two organisms, would recommend colonoscopy as outpt blood cultures are negative for bacteremia ordered diuretic lasix/ spironolactone. due to leaking from paracentesis site, consulted surgery to suture area, leak resolved [facility] and [facility] could be continued there. (2) Cellulitis: Plan: ruled out is acute abrasion. (3) Acute hypotension: Plan: acute hypotension secondary to sepsis, resolved Start midodrine for hypotension Consider transfer to ICU if MAP < 65 (4) Fall: Plan: acute left 12th rib fracture, pain control is adequeate (5) Liver cirrhosis: Plan: chronic unclear if stable ascitic fluid for cytology did not show malignancy Consult [facility] gastroenterology acute on chronic coagulopathy INR 1.5 -> given vitamin K 5mg IV coagulopathy from cirrhosis (6) Bilateral leg edema: Plan: Chronic, likely from portal hypertension R > Lt US venous Doppler negative for DVT on right side. (7) ANDRES (acute kidney injury): Plan: Acute resolving Concerning for hepatorenal syndrome, improve with improvement in his BP with midodrine (8) Weakness: Plan: Chronic and progressive Multifactorial with possible infection, liver cirrhosis, renal failure B12 level for peripheral neuropathy PT/OT (9) Type I diabetes mellitus, well controlled: Plan: Chronic and stable HbA1C 6.3 in February 2022 Usually takes Lantus 32 units at night and NovoLog 12 units 3 times daily Glucose 84 on admission therefore decrease Lantus to 16 units HS Novolog: --Goal BSG Range: Low 110 mg/dL, High 140 mg/dL --Correction Factor: 20 mg/dL/unit --Carbohydrate ratio = 7 g/unit --BSGs ACHS if eating, q6h if npo Consult pharmacy for glycemic control for ongoing dosing Admission and Anticipated Discharge Date Admission Date: July 18, 2022 Subjective pt is without complaints, no abdominal pain, no additional leakage Physical Exam Physical Exam: awake and alert, no abdominal pain nabs, soft no rebound no guarding. peripheral edema 1-2+ Results & Data Results & Data ([place]) Vital Signs (Past 12 Hours) Vital Signs Temp Pulse Pulse Resp BP Pulse Ox O2 Del Method 07/25/22 03:15 97.9 F 80 18 108/55 L 91 Room Air 07/25/22 00:35 80 07/24/22 23:10 98.1 F 81 18 98/46 L 90 Room Air Diagnostic Findings cbc reviewed prp reviewed lft reviewed PG Care Time/CCT Total # of Minutes Spent Total Time Spent with Patient: Total time spent is greater than 50% in coordination of care (as documented) at patient's floor/unit and/or counseling patient: Coding Level of Care Code 63564 SUB INP/OBS CARE 2/35MIN Diagnoses Spontaneous bacterial peritonitis K65.2 Cellulitis L03.90 Acute hypotension I95.9 Fall W19.XXXA Liver cirrhosis K74.60 Bilateral leg edema R60.0 ANDRES (acute kidney injury) N17.9 Weakness R53.1 Type I diabetes mellitus, well controlled E10.9
[2022-07-25] MEDS: LANTUS PER UNIT CHARGE SQ SCH (08:59)
[2022-07-25] MEDS: INSULIN ASPART PER UNIT SC SCH ×4 (08:59→22:03)
[2022-07-25] MEDS: SPIRONOLACTONE 100 MG TAB PO SCH (09:00)
[2022-07-25] MEDS: MIDODRINE HCL 2.5 MG TAB PO SCH ×3 (09:00→17:17)
[2022-07-25] MEDS: PANTOprazole 40 MG TAB PO SCH (09:00)
[2022-07-25] MEDS: FUROSEMIDE 40 MG TAB PO SCH (09:00)
[2022-07-25] MEDS: POLYETHYLENE (MIRALAX) 17 GM PACK PO SCH (09:55)
--- NOTE | 2022-07-25 11:36 | Infectious Disease Consult ---
Date of Consultation July 25, 2022 Assessment & Plan (1) Spontaneous bacterial peritonitis: (2) Ascites: (3) Liver cirrhosis: (4) Acute hypotension: (5) Cellulitis: Plan 72 year old NAFLD, Diabetes mellitus type 2, colon cancer s/p resection and chemotherapy (approx. 3 years ago) melanoma with metastasis status post neck resection and parotidectomy, Henry's esophagus with esophageal adenocarcinoma admitted to [facility] on 07/18 with hypotension, lightheadedness and dizziness, falls. Infectious diseases consulted for peritonitis and cellulitis. PMH includes Colon cancer with resection, s/p chemotherapy, seen as [facility] last chemotherapy approximately 2-3 years ago. Also with h/o melanoma S/p Radiation to neck. Patient has known history of ascites or peritonitis. Patient felt unwell for a few days prior to admission. He reported feeling dizzy and lightheaded for the last month and had mechanical fall. Blood pressure 70/35 therefore was advised to go to the ER via EMS. On admission BP low but responded to IV fluids. Initial labs notable for leukocytosis to 13. Hemoglobin 10.6. INR 1.5. ANDRES with creatinine 1.9, lactate was normal. T bili at 1.5 with a mild transaminitis. Total CK 680. Exam in by ER physician noted erythema on the anterior abdomen. CT A/P showed Cirrhosis with evidence of portal venous hypertension including splenomegaly with moderate abdominal pelvic ascites, as well as Mild wall thickening of the distal colon and rectum may be secondary to a nonspecific proctocolitis versus portal colopathy. CT Chest shows Partially calcified lobular density within the right lung base, 3.3 x 2.2 cm lobular density (increased).07/18 Blood cultures NG. He underwent paracentesis on 07/19 with 5L removed, peritoneal fluid grew ampS E. faecalis. WBC 3631, pathology negative for malignancy. On 07/22 He underwent paracentesis, 5.5 Liters removed, WBC 742cultures growing Staph aureus. Abx started on Cefepime and changed to IV zosyn. Gastroenterology consulted for new ascites diagnosis. General Surgery consulted for leaking paracentesis site, suture was placed. 1. SBP E. faecalis, Staph aureus 2. New diagnosis Ascites 3. Colon cancer s/p resection 4. Mild wall thickening of the distal colon MICRO 07/19 peritoneal fluid grew ampS E. faecalis 07/22 peritoneal fluid Staph aureus? Sensi P Hep C Ab NR 07/19 Discussion: Patient with new SBP in setting of cirrhosis with growth of E.faecalis likely secondary to colitis. Repeat para showed clearance of E. faecalis but growth of Staph aureus. Source of this could be microperforation from gut vs translocation from paracentesis site opening that needed suturing. While we await speciation, would add Vancomycin, Anticipate he will need therapy for at least 5-7 days. Recommend: -Add vancomycin, consult pharmacy -Await speciation of Staph aureus -Recommend outpatient Colonoscopy Thank you for this consultation ID will follow. Valerie Piña MD Department of Infectious Diseases [facility], [facility] Consultation Information Consultation was provided via telemedicine using two-way real-time interactive telecommunication between the patient and the telemedicine provider. For the duration of the visit, the provider was performing the assessment from a different facility than the patient. This includesuse of bluetooth stethoscope forauscultationperformed by the telepresenter that the telemedicine provider can hear if described in the physical exam. 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 (Phone Number For Physician Use Only) After establishing a telemedicine visit, patient was: Patient was verified with two unique identifiers, Patient/authorized rep acknowledged consent and understanding and Gave permission to continue telehealth session Time Spent with Patient: Initial => 55 min History of Present Illness Reason for Consultation: peritonitis Requesting Physician: Chalino Pérez MD Attending Physician: Chalino Pérez MD History of Present Illness 72 year old NAFLD, Diabetes mellitus type 2, colon cancer s/p resection and chemotherapy (approx. 3 years ago) melanoma with metastasis status post neck resection and parotidectomy, Henry's esophagus with esophageal adenocarcinoma admitted to [facility] on 07/18 with hypotension, lightheadedness and dizziness, falls. Infectious diseases consulted for peritonitis and cellulitis. PMH includes Colon cancer with resection, s/p chemotherapy, seen as [facility] last chemotherapy approximately 2-3 years ago. Also with h/o melanoma S/p Radiation to neck. Patient has known history of ascites or peritonitis. Patient felt unwell for a few days prior to admission. He reported feeling dizzy and lightheaded for the last month and had mechanical fall. Blood pressure 70/35 therefore was advised to go to the ER via EMS. On admission BP low but responded to IV fluids. Initial labs notable for leuko cytosis to 13. Hemoglobin 10.6. INR 1.5. ANDRES with creatinine 1.9, lactate was normal. T bili at 1.5 with a mild transaminitis. Total CK 680. Exam in by ER physician noted erythema on the anterior abdomen. CT A/P showed Cirrhosis with evidence of portal venous hypertension including splenomegaly with moderate abdominal pelvic ascites, as well as Mild wall thickening of the distal colon and rectum may be secondary to a nonspecific proctocolitis versus portal colopathy. CT Chest shows Partially calcified lobular density within the right lung base, 3.3 x 2.2 cm lobular density (increased).07/18 Blood cultures NG. He underwent paracentesis on 07/19 with 5L removed, peritoneal fluid grew ampS E. faecalis. WBC 3631, pathology negative for malignancy. On 07/22 He underwent paracentesis, 5.5 Liters removed, WBC 742cultures growing Staph aureus. Abx started on Cefepime and changed to IV zosyn. Gastroenterology consulted for new ascites diagnosis. General Surgery consulted for leaking paracentesis site, suture was placed. Infectious diseases consulted today for antibiotic management and duration. Patient is feeling better today. He is w/o complaints. Abdominal pain improved, feels less tense. Denies hardware/prosthetics. Allergies Allergy/AdvReac Type Severity Reaction Status Date / Time No Known Allergies Allergy Verified 07/18/22 14:26 Home Medications Medication Instructions Recorded Confirmed Type multivitamin 1 tab PO QPM 01/26/19 07/18/22 History lancets 33 gauge (OneTouch Delica #100 ea 06/27/21 07/18/22 History Lancets) lisinopril 20 mg tablet 20 mg PO QPM 10/01/21 07/18/22 History OneTouch Verio test strips (blood #300 ea 02/06/22 07/18/22 Rx sugar diagnostic) pen needle, diabetic 32 gauge x #500 ea 02/06/22 07/18/22 Rx 5/32" (BD Ultra-Fine Pascale Pen Needle) aspirin 81 mg tablet,delayed 81 mg PO DAILY 07/18/22 07/18/22 History release atorvastatin 40 mg tablet 40 mg PO HS 07/18/22 07/18/22 History insulin aspart U-100 100 unit/mL 12 unit subcut TID 07/18/22 07/18/22 History (3 mL) subcutaneous pen (Novolog FlexPen U-100 Insulin aspart) insulin glargine 100 unit/mL (3 32 unit subcut HS 07/18/22 07/18/22 History mL) subcutaneous pen (Basaglar KwikPen U-100 Insulin) levothyroxine 88 mcg tablet 88 mcg PO QAM 07/18/22 07/18/22 History liraglutide 0.6 mg/0.1 mL (18 mg/3 1.8 mg subcut DAILY 07/18/22 07/18/22 History mL) subcutaneous pen injector (Victoza 3-Joshua) omeprazole 40 mg capsule,delayed 40 mg PO DAILY 07/18/22 07/18/22 History release Patient History Medical History Henry's esophagus BCC (basal cell carcinoma of skin) Bilateral nephrolithiasis Diabetes mellitus, type 2 Esophageal adenocarcinoma History of, diagnosed 11/2021 Gallstones GERD (gastroesophageal reflux disease) History of colon cancer SURGERY>RADIATION THERAPY History of eye cancer LEFT Hyperlipidemia Hypertension Hypothyroidism ? THYROID CANCER *PT STATES HAD RADIATION 5 TIMES TO NECK Inguinal hernia, bilateral Melanoma ON RT ARM. S/p neck dissection and a parotidectomy on 11/16/2015 following failed radiation therapy for the metastatic disease from the skin primary. Nonalcoholic fatty liver disease Rib fracture posterior right 11th SCC (squamous cell carcinoma) Surgical History H/O colonoscopy H/O eye surgery SURGERY FOR CANCER ON LEFT EYE/UNSURE OF DETAILS H/O right hemicolectomy History of esophagogastroduodenoscopy (EGD) History of left cataract surgery History of surgery on arm LYMPH NODES REMOVED FROM RT ARM (RESTRICTION) History of tooth extraction Family History Mother Diabetes Father Diabetes Other Hyperlipidemia No family history of adverse response to anesthesia Stroke Denies family history of Ovarian cancer Prostate cancer Breast cancer Colorectal cancer Social History Smoking Status: Former smoker Age Started Using Tobacco: 11; Age Quit Using Tobacco: 62; packs per day: 1.5; Cigarettes Per Day: 7 YEARS AGO; Second Hand Exposure: Yes; Do You Dip or Chew Tobacco: No; Tobacco Cessation Education Requested by Patient: No Hx Alcohol Use: No Hx Substance Use: No Preferred Language: Haitian Communication Ability: Effective Hearing Ability: Normal Filter Worker Required: No Beliefs That Will Affect Care: None marital status: / Current Living Situation: Alone current occupational status: retired Other Information That Helps Us Care for You: No Feels Safe at Home: Yes Safety Concerns: Feels Safe At This Time Seatbelt Use: always Sunscreen Use: Yes Assistive Devices: Cane Review of System per HPI Physical Exam Physical Exam: NAD, OOB to chair L arm PIV L elbow abrasion CTAB +Fluid shift obese, nontender R leg mid lopez, well circumscribed lesion, purulent drainage Results & Data ([facility]) Vital Signs (Past 12 Hours) Vital Signs Temp Pulse Pulse Pulse Resp BP Pulse Ox 07/25/22 10:54 37.0 C 99 H 19 115/62 93 07/25/22 08:00 89 07/25/22 08:00 07/25/22 08:56 36.7 C 95 H 20 111/62 92 07/25/22 03:15 36.6 C 80 18 108/55 L 91 07/25/22 00:35 80 O2 Del Method 07/25/22 10:54 Room Air 07/25/22 08:00 07/25/22 08:00 Room Air 07/25/22 08:56 Room Air 07/25/22 03:15 Room Air 07/25/22 00:35 Laboratory Results Laboratory Results - last 48 hr 07/23/22 07/23/22 07/24/22 16:23 20:12 06:20 WBC 6.09 RBC 3.15 L Hgb 9.9 L Hct 30.2 L MCV 95.9 MCH 31.4 MCHC 32.8 RDW Std Deviation 48.0 H RDW Coeff of Merritt 13.7 Plt Count 134 MPV 10.2 PT INR Sodium Potassium Chloride Carbon Dioxide Anion Gap BUN Creatinine Est Cr Clr Drug Dosing Est GFR ( Amer) Est GFR (Non-Af Amer) BUN/Creatinine Ratio Glucose POC Glucose 191 H 180 H Calcium Total Bilirubin AST ALT Alkaline Phosphatase B-Natriuretic Peptide Total Protein Albumin Globulin Albumin/Globulin Ratio 07/24/22 07/24/22 07/24/22 06:20 06:20 06:20 WBC RBC Hgb Hct MCV MCH MCHC RDW Std Deviation RDW Coeff of [place]itt Plt Count MPV PT 14.6 H INR 1.4 H Sodium 138 Potassium 3.9 Chloride 103 Carbon Dioxide 29 Anion Gap 6 BUN 25 H Creatinine 0.91 Est Cr Clr Drug Dosing 85.1 Est GFR ( Amer) 96.6 Est GFR (Non-Af Amer) 83.3 BUN/Creatinine Ratio 27.5 H Glucose 124 H POC Glucose Calcium 8.8 Total Bilirubin 1.0 AST 59 H ALT 46 Alkaline Phosphatase 138 H B-Natriuretic Peptide 73 Total Protein 6.3 Albumin 3.2 L Globulin 3.1 Albumin/Globulin Ratio 1.0 07/24/22 07/24/22 07/24/22 07:30 10:57 16:04 WBC RBC Hgb Hct MCV MCH MCHC RDW Std Deviation RDW Coeff of [place]itt Plt Count MPV PT INR Sodium Potassium Chloride Carbon Dioxide Anion Gap BUN Creatinine Est Cr Clr Drug Dosing Est GFR ( Amer) Est GFR (Non-Af Amer) BUN/Creatinine Ratio Glucose POC Glucose 110 H 207 H 416 H* Calcium Total Bilirubin AST ALT Alkaline Phosphatase B-Natriuretic Peptide Total Protein Albumin Globulin Albumin/Globulin Ratio 07/24/22 07/24/22 07/25/22 16:05 20:04 06:36 WBC 6.37 RBC 3.13 L Hgb 9.8 L Hct 29.6 L MCV 94.6 MCH 31.3 MCHC 33.1 RDW Std Deviation 46.9 H RDW Coeff of [place]itt 13.8 Plt Count 137 MPV 10.5 PT INR Sodium Potassium Chloride Carbon Dioxide Anion Gap BUN Creatinine Est Cr Clr Drug Dosing Est GFR ( Amer) Est GFR (Non-Af Amer) BUN/Creatinine Ratio Glucose POC Glucose 149 H 161 H Calcium Total Bilirubin AST ALT Alkaline Phosphatase B-Natriuretic Peptide Total Protein Albumin Globulin Albumin/Globulin Ratio 07/25/22 07/25/22 07/25/22 06:36 06:36 07:33 WBC RBC Hgb Hct MCV MCH MCHC RDW Std Deviation RDW Coeff of [place]itt Plt Count MPV PT 14.0 H INR 1.3 H Sodium 137 Potassium 4.4 Chloride 101 Carbon Dioxide 32 Anion Gap 4 BUN 26 H Creatinine 0.92 Est Cr Clr Drug Dosing 84.2 Est GFR ( Amer) 95.3 Est GFR (Non-Af Amer) 82.2 BUN/Creatinine Ratio 28.3 H Glucose 108 H POC Glucose 130 H Calcium 8.9 Total Bilirubin 0.9 AST 57 H ALT 45 Alkaline Phosphatase 140 H B-Natriuretic Peptide Total Protein 6.3 Albumin 3.0 L Globulin 3.3 Albumin/Globulin Ratio 0.9 07/25/22 11:37 WBC RBC Hgb Hct MCV MCH MCHC RDW Std Deviation RDW Coeff of Merritt Plt Count MPV PT INR Sodium Potassium Chloride Carbon Dioxide Anion Gap BUN Creatinine Est Cr Clr Drug Dosing Est GFR ( Amer) Est GFR (Non-Af Amer) BUN/Creatinine Ratio Glucose POC Glucose 225 H Calcium Total Bilirubin AST ALT Alkaline Phosphatase B-Natriuretic Peptide Total Protein Albumin Globulin Albumin/Globulin Ratio Microbiology 07/22/22 Unknown Peritoneal Fluid Gram Stain - Final 07/22/22 Unknown Peritoneal Fluid Aerobic and Anaerobic Culture - Preliminary Staphylococcus species 07/19/22 Unknown Peritoneal Fluid Gram Stain - Final 07/19/22 Unknown Peritoneal Fluid Aerobic and Anaerobic Culture - Final Enterococcus faecalis 07/18/22 17:26 Blood Aerobic Blood Culture - Final No growth in Aerobic bottle after 5 days. 07/18/22 17:26 Blood Anaerobic Blood Culture - Final No growth in Anaerobic bottle after 5 days. 07/18/22 17:27 Blood Aerobic Blood Culture - Final No growth in Aerobic bottle after 5 days. 07/18/22 17:27 Blood Anaerobic Blood Culture - Final No growth in Anaerobic bottle after 5 days. 07/18/22 22:25 Urine,Clean Catch Urine Culture - Final No growth - less than 1,000 colonies/mL. Diagnostic Findings Abdomen Ultrasound 07/24/22 12:36 US abdomen ltd ascites CLINICAL HISTORY: SBP COMPARISON STUDY: Ultrasound guided paracentesis July 22, 2022. FINDINGS: Patient presented today for possible paracentesis. Minimal ascites was noted. The amount of fluid was insufficient for paracentesis. Therefore, no procedure was performed. IMPRESSION: Minimal ascites, insufficient for paracentesis. Therefore, no procedure performed. ACT 112: Negative or not required by law. Electronically signed by: Viet Aguilar M.D. 07/24/2022 3:34 PM Medications Administered Current Inpatient Medications Atorvastatin Calcium (Atorvastatin 40 Mg Tab) 40 mg PO HS [facility] Stop: 08/17/22 21:42 Last Admin: 02/01/23 21:24 Dose: 40 mg Dextrose (Dextrose 50% 50 Ml Syringe) 25 - 50 ml IV UD PRN; Protocol PRN Reason: Hypoglycemia Protocol Stop: 08/17/22 21:42 Furosemide (Furosemide 40 Mg Tab) 40 mg PO QAM [facility] Stop: 08/24/22 08:59 Last Admin: 07/25/22 09:00 Dose: 40 mg Glucagon (Glucagon For Inj 1 Mg Vial) 1 mg SQ UD PRN; Protocol PRN Reason: Hypoglycemia Protocol Stop: 08/17/22 21:42 Glucose (Glucose 40% Gel 15 Gm Tube) 15 - 30 gm PO UD PRN; Protocol PRN Reason: Hypoglycemia Protocol Stop: 08/17/22 21:42 Glucose (Glucose 10 Tab/Tube) 4 - 8 tab PO UD PRN; Protocol PRN Reason: Hypoglycemia Treatment Stop: 08/17/22 21:42 Heparin Sodium (Porcine) (Heparin Sod 5,000 Unit/0.5 Ml Vial) 5,000 units SQ Q8 [facility] Stop: 08/24/22 13:59 Last Admin: 07/25/22 13:04 Dose: 5,000 units Ampicillin Sodium/Sulbactam Sodium 3,000 mg/ Sodium Chloride 108 mls @ 200 mls/hr IV Q6H [facility]; Protocol Stop: 08/03/22 21:59 Last Infusion: 07/25/22 13:51 Dose: Infused Insulin Aspart (Insulin Aspart Per Unit) 0 units SC 1130,1630,2100 [facility]; Protocol Stop: 08/21/22 16:29 Last Admin: 07/25/22 13:07 Dose: 10 units Insulin Aspart (Insulin Aspart Per Unit) 0 units SC 0730 [facility]; Protocol Stop: 08/22/22 07:29 Last Admin: 07/25/22 08:59 Dose: 14 units Insulin Glargine (Lantus Per Unit Charge) 8 units SQ DAILY [facility]; Protocol Stop: 08/22/22 08:59 Last Admin: 07/25/22 08:59 Dose: 8 units Levothyroxine Sodium (Levothyroxine Sodium 88 Mcg Tablet) 88 mcg PO DAILYBB [facility] Stop: 08/18/22 06:29 Last Admin: 07/25/22 06:00 Dose: 88 mcg Midodrine (Midodrine Hcl 2.5 Mg Tab) 5 mg PO TID@0800,1200,1700 [facility] Stop: 08/18/22 07:59 Last Admin: 07/25/22 13:04 Dose: 5 mg Miscellaneous (Carbohydrates For Hypoglycemia ) 15 - 30 gm PO UD PRN PRN Reason: Hypoglycemia Protocol Stop: 08/17/22 21:42 Miscellaneous Information (Pharmacy Glycemic Mgmt Consult) 1 each N/A UD PRN; Protocol PRN Reason: Consult Stop: 08/17/22 21:42 Pantoprazole Sodium (Pantoprazole 40 Mg Tab) 40 mg PO DAILY [facility] Stop: 08/18/22 08:59 Last Admin: 07/25/22 09:00 Dose: 40 mg Polyethylene Glycol (Polyethylene (Miralax) 17 Gm Pack) 17 gm PO DAILY [facility] Stop: 08/18/22 10:29 Last Admin: 07/25/22 09:55 Dose: Not Given Spironolactone ([facility] 100 Mg Tab) [facility] [place]: 08/21/22 12:29 Last Admin: 07/25/22 09:00 Dose: 100 mg
[2022-07-25 11:46] LABS: Albumin Globulin Ratio 0.9 (0.9-2); BUN Creatinine Ratio 28.3 (10-20); Bilirubin,Total 0.9 mg/dl (0.2-1.0); Calcium 8.9 mg/dl (8.5-10.1); Creatinine Clr Calc Pharmacy 84.2 ml/min; Est GFR (African American) 95.3 ml/min; Est GFR (Non-African American) 82.2 ml/min; Globulin 3.3 gm/dl (2.5-4.0); Potassium 4.4 mmol/L (3.5-5.1); Total Protein 6.3 gm/dl (6.0-8.3)
[2022-07-25] MEDS: HEPARIN SOD 5,000 UNIT/0.5 ML VIAL SQ SCH ×2 (13:04→22:36)
[2022-07-25] MEDS ORDERED: VANCOMYCIN CONSULT ACTIVE PRN (17:52)
[2022-07-25] MEDS ORDERED: VANCOMYCIN HCL 2,250 MG in SODIUM CHLORIDE 0.9% 500 ML IV ONE (18:45)
[2022-07-25] MEDS: ATORVASTATIN 40 MG TAB PO SCH (22:03)
[2022-07-26] MEDS: AMPICILLIN/SULBACTAM SOD 3,000 MG in 0.9 % SODIUM CHLORIDE 100 ML IV SCH (03:31)
[2022-07-26] MEDS: LEVOTHYROXINE SODIUM 88 MCG TABLET PO SCH (05:56)
[2022-07-26] MEDS: HEPARIN SOD 5,000 UNIT/0.5 ML VIAL SQ SCH (05:57)
[2022-07-26] MEDS ORDERED: VANCOMYCIN HCL 1,000 MG in SODIUM CHLORIDE 0.9% 250 ML IV SCH (06:00)
--- NOTE | 2022-07-26 07:05 | Hospitalist Progress Note ---
Date of Service July 26, 2022 Assessment & Plan (1) Spontaneous bacterial peritonitis: Plan: acute Sepsis POA secondary to spontaneous Bacterial peritonitis, resolving cultures have grown enterococcus faecalis from ascitic fluid Unasyn at 3gr IV Q6H, Consulted ID recommend 5-7 days of vancomycin, since two organisms, would recommend colonoscopy as outpt completed 7 days of unasyn will stop blood cultures are negative for bacteremia ordered diuretic lasix/ spironolactone. due to leaking from paracentesis site, consulted surgery to suture area, leak resolved [facility] and vancomycin could be continued there. (2) Cellulitis: Plan: ruled out is acute abrasion. (3) Acute hypotension: Plan: acute hypotension secondary to sepsis, resolved Start midodrine for hypotension Consider transfer to ICU if MAP < 65 (4) Fall: Plan: acute left 12th rib fracture, pain control is adequeate (5) Liver cirrhosis: Plan: chronic unclear if stable ascitic fluid for cytology did not show malignancy Consult [facility] gastroenterology acute on chronic coagulopathy INR 1.5 -> given vitamin K 5mg IV coagulopathy from cirrhosis (6) Bilateral leg edema: Plan: Chronic, likely from portal hypertension R > Lt US venous Doppler negative for DVT on right side. (7) ANDRES (acute kidney injury): Plan: Acute resolving Concerning for hepatorenal syndrome, improve with improvement in his BP with midodrine (8) Weakness: Plan: Chronic and progressive Multifactorial with possible infection, liver cirrhosis, renal failure B12 level for peripheral neuropathy PT/OT (9) Type I diabetes mellitus, well controlled: Plan: Chronic and stable HbA1C 6.3 in February 2022 Usually takes Lantus 32 units at night and NovoLog 12 units 3 times daily Glucose 84 on admission therefore decrease Lantus to 16 units HS Novolog: --Goal BSG Range: Low 110 mg/dL, High 140 mg/dL --Correction Factor: 20 mg/dL/unit --Carbohydrate ratio = 7 g/unit --BSGs ACHS if eating, q6h if npo Consult pharmacy for glycemic control for ongoing dosing Admission and Anticipated Discharge Date Admission Date: July 18, 2022 Results & Data Results & Data ([facility]) Vital Signs (Past 12 Hours) Vital Signs Temp Pulse Pulse Pulse Resp BP Pulse Ox 07/26/22 02:35 97.9 F 89 18 104/55 L 90 07/25/22:00 91 H 07/25/22 20:00 07/25/22 22:59 97.9 F 86 18 126/62 90 07/25/22 19:34 97.9 F 83 18 122/59 L 90 O2 Del Method 07/26/22 02:35 Room Air 07/25/22 23:00 07/25/22 20:00 Room Air 07/25/22 22:59 Room Air 07/25/22 19:34 Room Air PG Care Time/CCT Total # of Minutes Spent Total Time Spent with Patient: Total time spent is greater than 50% in coordination of care (as documented) at patient's floor/unit and/or counseling patient: Coding Diagnoses Spontaneous bacterial peritonitis K65.2 Cellulitis L03.90 Acute hypotension I95.9 Fall W19.XXXA Liver cirrhosis K74.60 Bilateral leg edema R60.0 ANDRES (acute kidney injury) N17.9 Weakness R53.1 Type I diabetes mellitus, well controlled E10.9
[2022-07-26] MEDS: SPIRONOLACTONE 100 MG TAB PO SCH (07:43)
[2022-07-26] MEDS: MIDODRINE HCL 2.5 MG TAB PO SCH ×2 (07:43→11:51)
[2022-07-26] MEDS: FUROSEMIDE 40 MG TAB PO SCH (07:43)
[2022-07-26] MEDS: POLYETHYLENE (MIRALAX) 17 GM PACK PO SCH (07:43)
[2022-07-26] MEDS: PANTOprazole 40 MG TAB PO SCH (07:43)
[2022-07-26] MEDS: LANTUS PER UNIT CHARGE SQ SCH (07:44)
[2022-07-26] MEDS: INSULIN ASPART PER UNIT SC SCH ×2 (07:44→11:51)
[2022-07-26 07:51] LABS: Hemoglobin 9.6 g/dl (14.0-18.0); Mean Corpuscular Hemoglobin 31.7 pg (25.0-34.0); Mean Corpuscular Hgb Conc 33.1 g/dL (32.0-36.0); Mean Corpuscular Volume 95.7 fL (80.0-100.0); Mean Platelet Volume 10.1 fL (9.4-12.4); Platelet Count 142 K/uL (130-400); RDW Coefficient of Variation 14.1 % (11.5-14.5); RDW Standard Deviation 48.2 fL (36.4-46.3); Red Blood Count 3.03 M/uL (4.70-6.10); White Blood Count 5.78 K/ul (4.8-10.8)
--- NOTE | 2022-07-26 07:56 | Infectious Disease Progress Nt ---
Date of Service July 26, 2022 24 hours: Peritoneal fluid growing CoNS Vancomycin added yesterday WBC, Cr normal Assessment & Plan (1) Spontaneous bacterial peritonitis: (2) Ascites: (3) Liver cirrhosis: (4) Acute hypotension: (5) Cellulitis: Plan 72 year old NAFLD, Diabetes mellitus type 2, colon cancer s/p resection and chemotherapy (approx. 3 years ago) melanoma with metastasis status post neck resection and parotidectomy, Henry's esophagus with esophageal adenocarcinoma admitted to [facility] on 07/18 with hypotension, lightheadedness and dizziness, falls. Infectious diseases consulted for peritonitis and cellulitis. PMH includes Colon cancer with resection, s/p chemotherapy, seen as [facility] last chemotherapy approximately 2-3 years ago. Also with h/o melanoma S/p Radiation to neck. Patient has known history of ascites or peritonitis. Patient felt unwell for a few days prior to admission. He reported feeling dizzy and lightheaded for the last month and had mechanical fall. Blood pressure 70/35 therefore was advised to go to the ER via EMS. On admission BP low but responded to IV fluids. Initial labs notable for leukocytosis to 13. Hemoglobin 10.6. INR 1.5. ANDRES with creatinine 1.9, lactate was normal. T bili at 1.5 with a mild transaminitis. Total CK 680. Exam in by ER physician noted erythema on the anterior abdomen. CT A/P showed Cirrhosis with evidence of portal venous hypertension including splenomegaly with moderate abdominal pelvic ascites, as well as Mild wall thickening of the distal colon and rectum may be secondary to a nonspecific proctocolitis versus portal colopathy. CT Chest shows Partially calcified lobular density within the right lung base, 3.3 x 2.2 cm lobular density (increased).07/18 Blood cultures NG. He underwent paracentesis on 07/19 with 5L removed, peritoneal fluid grew ampS E. faecalis. WBC 3631, pathology negative for malignancy. On 07/22 He underwent paracentesis, 5.5 Liters removed, WBC 742cultures growing Staph aureus. Abx started on Cefepime and changed to IV zosyn. Gastroenterology consulted for new ascites diagnosis. General Surgery consulted for leaking paracentesis site, suture was placed. 1. SBP E. faecalis, CoNS (oxacillin sensitive) 2. New diagnosis Ascites 3. Colon cancer s/p resection 4. Mild wall thickening of the distal colon MICRO 1/27 peritoneal fluid grew ampS E. faecalis 07/22 peritoneal fluid CoNS Oxacillin Sensitive Hep C Ab NR 07/19 Discussion: Patient with new SBP in setting of cirrhosis with growth of E.faecalis likely secondary to colitis. Repeat para showed clearance of E. faecalis but growth of CoNS. Source of this could be microperforation from gut vs translocation from paracentesis site opening that needed suturing. I suspect it is the latter as it would be atypical for him to have 2 SBPs with obvious perforation. We can narrow him to Cefazolin not that sensitivities are back. After treatment, he meets criteria for SBP prophylaxis given this episode of SBP. Reports show recurrence rates of up to 70% within 1 year. Recommend: -Narrow ABX to Cefazolin 2G IV TID, anticipate EOT 07/30/22 -DC Vancomycin -Once SBP therapy completed would consider adding Bactrim DS 1 tablet daily -Recommend outpatient Colonoscopy and outpatient GI Follow up Please page me over the weekend with any questions and I will RT service on 07/29. ID will follow. Discuss with Primary team. Valerie Piña MD Department of Infectious Diseases [facility], ID Connect Admission and Anticipated Discharge Date Admission Date: July 18, 2022 Subjective This patient recommendation is based on a telemedicine consult request which was completed asynchronously through chart review and information provided by the primary physician. The patient was not seen or examined today. The evaluation is consultative in nature and all patient care and treatment decisions can either be accepted or rejected by the patient's primary hospital-based treating physician using their own independent medical judgment for their patient. Time Spent Reviewing Chart: 31+ minutes Results & Data ([facility]) Vital Signs (Past 12 Hours) Vital Signs Temp Pulse Pulse Pulse Resp BP Pulse Ox 07/26/22 02:35 36.6 C 89 18 104/55 L 90 07/25/22 23:00 91 H 07/25/22 20:00 07/25/22 22:59 36.6 C 86 18 126/62 90 O2 Del Method 07/26/22 02:35 Room Air 07/25/22 23:00 07/25/22 20:00 Room Air 07/25/22 22:59 Room Air Laboratory Results Short CBC 07/25/22 07/26/22 Range/Units 06:36 07:17 WBC 6.37 5.78 (4.8-10.8) K/ul Hgb 9.8 L 9.6 L (14.0-18.0) g/dl Hct 29.6 L 29.0 L (42.0-52.0) % Plt Count 137 142 (130-400) K/uL BMP 07/25/22 06:36 Sodium 137 Potassium 4.4 Chloride 101 Carbon Dioxide 32 BUN 26 H Creatinine 0.92 Glucose 108 H Calcium 8.9 Liver Function 07/25/22 Range/Units 06:36 Total Bilirubin 0.9 (0.2-1.0) mg/dl AST 57 H (13-39) U/L ALT 45 (7-52) U/L Alkaline Phosphatase 140 H (34-104) U/L Albumin 3.0 L (3.4-5.0) gm/dl Microbiology 07/22/22 Unknown Peritoneal Fluid Gram Stain - Final 07/22/22 Unknown Peritoneal Fluid Aerobic and Anaerobic Culture - Preliminary Coag neg staph not lugdunensis 07/19/22 Unknown Peritoneal Fluid Gram Stain - Final 07/19/22 Unknown Peritoneal Fluid Aerobic and Anaerobic Culture - Final Enterococcus faecalis 07/18/22 17:26 Blood Aerobic Blood Culture - Final No growth in Aerobic bottle after 5 days. 07/18/22 17:26 Blood Anaerobic Blood Culture - Final No growth in Anaerobic bottle after 5 days. 07/18/22 17:27 Blood Aerobic Blood Culture - Final No growth in Aerobic bottle after 5 days. 07/18/22 17:27 Blood Anaerobic Blood Culture - Final No growth in Anaerobic bottle after 5 days. 07/18/22 22:25 Urine,Clean Catch Urine Culture - Final No growth - less than 1,000 colonies/mL.
[2022-07-26 08:30] LABS: Albumin Globulin Ratio 0.9 (0.9-2); BUN Creatinine Ratio 27.6 (10-20); Calcium 8.9 mg/dl (8.5-10.1); Est GFR (African American) 88.3 ml/min; Est GFR (Non-African American) 76.2 ml/min; Potassium 4.1 mmol/L (3.5-5.1); Total Protein 6.3 gm/dl (6.0-8.3)
[2022-07-26 08:43] LABS: Globulin 3.3 gm/dl (2.5-4.0)
[2022-07-26] MEDS ORDERED: ceFAZolin 1000MG 1,000 MG/7.5 ML SYR IV SCH (09:00)
--- NOTE | 2022-07-26 11:41 | Pharmacy Report ---
Pharmacy Glycemic Short Note 2 - Date of Service July 26, 2022 - Glycemic Short BSG Results (Last 24 hours): 07/25/22 07/25/22 07/25/22 06:36 11:37 16:19 Glucose 108 H POC Glucose 225 H 161 H 07/25/22 07/26/22 07/26/22 19:55 07:17 07:27 Glucose 118 H POC Glucose 141 H 112 H 07/26/22 10:58 Glucose POC Glucose 163 H OUTPATIENT ANTIDIABETIC REGIMEN: * Basaglar 32 units SC HS * Novolog 12 units SC TID * Victoza 1.8 mg SC daily * HbA1C: 5.9% (07/19/22) ASSESSMENT: 07/26: * Stressors table * BSG's well controlled yesterday except still had a post-prandial elevation at lunch. Will therefore tighten breakfast CHO ratio 07/24 * Stressors stable * AM fasting BSG in goal range - continue Lantus * Post-prandial BSG's all >= 180mg/dL yesterday, although not significantly. Will slightly tighten CHO ratios 07/22: * Pasha received a total of 36 units of insulin yesterday, 8 units basal + 28 units bolus. BSGs were: [phone] mg/dL. * Fasting BSG was 119 mg/dL this AM. Will continue with 8 units of basal daily. * Persistent hyperglycemia at lunchtime. Will tighten Novolog with breakfast only starting tomorrow AM. * Abx changed to Ceftriaxone today for SBP. Undergoing paracentesis today. 07/21: * Patient's BSGs yesterday were [phone] mg/dL. Patient received 24 units of insulin (5 units of basal and 19 units of bolus). * Fasting today is 143 mg/dL. Increase basal by 20% to 8 units. For tomorrow will have scale for Lantus with automatic titrations of 0-10-20%. * Continue Novolog. CF well placed as patient corrected from 221 to 123. BACKGROUND * Patient is a 72 YOM, type 1 diabetic, admitted with spontaneous bacterial peritonitis. Pharmacy consulted to assist with glycemic management. * BSGs [phone]/dL since admission. Per patient - he has not been eating for several days and did not take his insulin at all yesterday. * Diet ordered - did tolerate breakfast this AM per RN. On IV antibiotics, and has an ANDRES. * Given patient is a type 1 diabetic, will give a small dose of basal insulin this AM, 5 units, given BSG on the lower end and has not been tolerating PO. Novolog parameters loosened for now given decreased PO. Will titrate based on intake and BSG trend. PLAN FOR INPATIENT GLYCEMIC CONTROL: * Hold outpatient Victoza * Basal insulin * Lantus 8 units SC daily * Bolus insulin * NovoLog per scale ACHS or Q6hrs while NPO * Goal Range: Low 110 mg/dL - High 140 mg/dL * Breakfast: Correction Factor: 20 mg/dL/unit; Nutritional / Prandial insulin per carb ratio of 1 unit per 5 grams CHO consumed * Lunch, Dinner, HS: Correction Factor: 30 mg/dL/unit; Nutritional / Prandial insulin per carb ratio of 1 unit per 7 grams CHO consumed
--- NOTE | 2022-07-26 16:42 | Discharge Summary ---
Date of Service July 26, 2022 Admission HPI Per Admitting Provider Pasha Holloway is a 72 year old male who presents to the ER from [facility] via EMS for hypotension 70/35 at the office. He reports feeling dizzy lightheaded for the last month which may have contributed towards him falling yesterday although thinks this was more due to bilateral leg weakness that has been ongoing for years. While walking to the bathroom he put his hands on the sink and his legs gave way. He spent 3 hours on the floor initially unable to move. He spent another 2 hours getting himself back to bed. He denies any chest pain or shortness of breath prior to falling but reportedly has some chest pain and palpitations after falling. His sister drove him to the PCP office today where he was noted to have a blood pressure of 70/35 therefore was advised to go to the ER via EMS. Difficult to get a clear history timeline from the patient. He reports feeling generally unwell for the last 3 days with chills but no objective fever. No urinary or upper respiratory symptoms. He reports his abdomen has been distended for years with increasing leg edema. Although increased abdominal girth was noted is a new problem during his PCP February 2022 visit. No mention of liver cirrhosis/ascites on previous gastroenterology note. He notes generalized abdominal pain but finds it difficult to give me a timeline on this but possible also just the last 3 days. He reports the erythema on his lower abdomen - again unclear how long this has been going on. Principal Diagnosis spontaneous bacterial peritonitis cirrhosis sepsis resolved Discharge Exam Patient awake alert appropriate. Abdomen examines with some dullness but no fluid wave suture site paracentesis is clean dry and intact lungs are clear with good air movement Discharge Data Allergies Allergy/AdvReac Type Severity Reaction Status Date / Time No Known Allergies Allergy Verified 07/18/22 14:26 Consultations 07/18/22 18:10 ED Decision to Admit Stat 07/18/22 21:43 Consult Gastroenterology Routine 07/23/22 09:18 Consult General Surgery Routine 07/24/22 15:00 Consult Infectious Diseases Routine Ordered Studies 07/18/22 15:47 CT cervical spine wo con Stat CT head/brain wo con Stat 07/18/22 16:43 CT abd pelvis wo con Stat CT chest diagnostic wo con Stat 07/18/22 18:47 US venous doppler LE RT Urgent 07/19/22 07:00 US paracentesis abd w/image Routine 07/19/22 12:02 US duplex portal hepatic veins Routine 07/22/22 10:02 US paracentesis abd w/image Routine 07/24/22 12:36 US abdomen ltd ascites Urgent Hospital Course (1) Spontaneous bacterial peritonitis: acute Sepsis POA secondary to spontaneous Bacterial peritonitis, resolving cultures have grown enterococcus faecalis from ascitic fluid Unasyn at 3gr IV Q6H, Consulted ID recommend 5-7 days initially recommending vancomycin changed to cefazolin 3 times daily last dose 07/30/22 since two organisms, would recommend colonoscopy as outpt completed 7 days of unasyn will stop blood cultures are negative for bacteremia Discharged on diuretic lasix/ spironolactone. due to leaking from paracentesis site, consulted surgery to suture area, leak resolved sutures will need to be removed in about a week [facility] will [facility] going [facility] IV cefazolin (2) Cellulitis: ruled out is acute abrasion. (3) Acute hypotension: acute hypotension secondary to sepsis, resolved Start midodrine for hypotension Consider transfer to ICU if MAP < 65 (4) Fall: acute left 12th rib fracture, pain control is adequeate (5) Liver cirrhosis: chronic unclear if stable ascitic fluid for cytology did not show malignancy Consult [facility] gastroenterology acute on chronic coagulopathy INR 1.5 -> given vitamin K 5mg IV coagulopathy from cirrhosis (6) Bilateral leg edema: Chronic, likely from portal hypertension R > Lt US venous Doppler negative for DVT on right side. (7) ANDRES (acute kidney injury): Acute resolving Concerning for hepatorenal syndrome, improved with improvement in his BP with midodrine (8) Weakness: Chronic and progressive Multifactorial with possible infection, liver cirrhosis, renal failure B12 level for peripheral neuropathy PT/OT to be continued acute inpatient rehab (9) Type I diabetes mellitus, well controlled: Chronic and stable HbA1C 6.3 in February 2022 Usually takes Lantus 32 units at night and NovoLog 12 units 3 times daily Glucose 84 on admission therefore decrease Lantus to 16 units HS Novolog: --Goal BSG Range: Low 110 mg/dL, High 140 mg/dL --Correction Factor: 20 mg/dL/unit --Carbohydrate ratio = 7 g/unit --BSGs ACHS if eating, q6h if npo Will eventually need transitional oral home hypoglycemic agents Total Time Total Time Spent Total Time Spent (In Minutes): It required greater than 30 minutes to prepare this patient for discharge Discharge Plan Discharge Items Patient Disposition: Transfer Inpatient Rehab Fac Reason For Visit: LIVER CIRRHOSIS, HYPOTENSION, SPONTANEOUS BACTERIA Discharge Diagnosis: spontaneous bacterial peritonitis cirrhosis Activity: Per Instructions section Non-emergency contact: Primary Care Provider and Batch Tank Controller Call non-emergency contact if: your symptoms worsen Follow-up/Referrals: Rosalva Bravo MD [Primary Care Provider] - Diet: Carb Consistent or DM2 and Low Potassium (2gm) Addtl Attending Provider Instructions: please monitor daily weights, low salt diet and asses for fluid reaccumulation complete IV vancomycin with monitoring of peak and troughs with last dose07/31/22 consider talking stitch our of paracentesis site in about a week please teach pt about dietary restriction for home care of his ascites Pending Studies at Discharge: No Stand-Alone Forms: My [facility] Skilled Items Patient informed of condition?: Yes DNR: No Discharge Level of Care: Acute rehab Communicable Disease: No Discharge Prognosis: Stable Lines: None Urinary Catheter: No Medications and DC Order Prescriptions: New furosemide 40 mg Tablet 40 mg PO QAM Qty: 30 0RF insulin glargine [Lantus U-100 Insulin] 100 unit/mL Solution 8 unit subcut DAILY Qty: 10 0RF spironolactone 100 mg Tablet 100 mg PO QAM Qty: 30 0RF midodrine 2.5 mg Tablet 5 mg PO TID@0800,1200,1700 Qty: 30 0RF insulin aspart U-100 [Novolog U-100 Insulin aspart] 100 unit/mL Solution 1 unit SC QID Qty: 10 0RF Rx Instructions: -Goal BSG Range: Low 110 mg/dL, High 140 mg/dL --Correction Factor: 30 mg/dL/unit --Carbohydrate ratio = 7 g/unit polyethylene glycol 3350 [Miralax] 17 gram Powder In Packet 17 g PO DAILY Qty: 30 0RF cefazolin 2 gram recon soln 2 g IM Q8H Qty: 15 0RF Continued (DME) OneTouch Verio test strips Strip See Dose Instructions .ROUTE .MEDSUPPLY Qty: 300 3RF Rx Instructions: Test blood sugars 3 times a day (DME) pen needle, diabetic [BD Ultra-Fine Pascale Pen Needle] 32 gauge x 5/32" needle See Dose Instructions .ROUTE .MEDSUPPLY Qty: 500 3RF Rx Instructions: Inject insulin 5 times a day multivitamin tablet 1 tab PO QPM (DME) lancets [OneTouch Delica Lancets] 33 gauge misc See Rx Instructions .ROUTE .MEDSUPPLY Qty: 100 Rx Instructions: Test blood sugars 2 times a day atorvastatin 40 mg tablet 40 mg PO HS Rx Instructions: TAKE 1 TAB BY MOUTH AT BEDTIME omeprazole 40 mg capsule,delayed release(DR/EC) 40 mg PO DAILY Rx Instructions: TAKE 1 CAPSULE BY MOUTH DAILY levothyroxine 88 mcg tablet 88 mcg PO QAM Rx Instructions: 88 mcg PO TAKE ON AN EMPTY STOMACH WITH A FULL GLASS OF WATER, WAIT 30 MINUTES TO EAT, DRINK, OR TAKE MEDICATIONS; Discontinued lisinopril 20 mg tablet 20 mg PO QPM Victoza 3-Joshua 0.6 mg/0.1 mL (18 mg/3 mL) pen injector 1.8 mg SUBCUT DAILY insulin aspart U-100 [Novolog FlexPen U-100 Insulin] 100 unit/mL (3 mL) insulin pen 12 unit SQ TID Rx Instructions: plus sliding scale insulin glargine [Basaglar KwikPen U-100 Insulin] 100 unit/mL (3 mL) insulin pen 32 unit SQ HS Rx Instructions: 32 units subcut at bedtime; aspirin [Aspir-Low] 81 mg Tablet,Delayed Release (Dr/Ec) 81 mg PO DAILY Discharge Orders: Discharge Order (Routine); Ordered 07/26/22 Ordered By: Chalino Pérez Admission Data Admit Date/Time: 07/18/22 19:17 Attending Provider: Chalino Pérez Admit Provider: Harry Schwarz Primary Care Provider: Rosalva Bravo Other Providers: Harry Schwarz ; Kim Mays ; [facility] ; Johnny Bullock ; Selene Yang ; Rodrick Whitehead ; Raina Lema ; Latia Wright ; Marlena Gusman ; Valerie Piña ; Criss Tapia ; Rob Chambers ; Kimberly Jaramillo Coding Level of Care Code HOSP INP/OBS DISCH >30 MIN Diagnoses Spontaneous bacterial peritonitis K65.2 Cellulitis L03.90 Acute hypotension I95.9 Fall W19.XXXA Liver cirrhosis K74.60 Bilateral leg edema R60.0 ANDRES (acute kidney injury) N17.9 Weakness R53.1 Type I diabetes mellitus, well controlled E10.9
== END 2022-07-26 16:40 | DRG 871 ==
LOC: ED 15:35 → SUATTDRO 19:17 → 2E 19:17

== ENCOUNTER 2023-08-26 07:11 | Inpatient (IN) ==
--- NOTE | 2023-08-26 07:30 | Emergency Department Note ---
Impression & Plan Altered mental state ADMIT ED Provider Note HPI: History obtained from patient. The patient is a 73-year-old gentleman who presents the emergency department with altered mental status from [facility]. Patient was minimally responsive this morning when nurses checked on him for his medications. Patient reportedly was last seen well last evening before falling asleep. His normal baseline status is reportedly conversational, here in the ED he is minimally responsive to painful stimuli, he is unable to follow commands, he is saturating well on room air on arrival. Blood pressure is 117/74 on arrival. ROS: - Per HPI Differential Diagnosis: Acute ischemic stroke, intracranial hemorrhage, sepsis, urinary tract infection, pneumonia, hepatic encephalopathy, polypharmacy/drug overdose, amongst other potential pathologies. *Outpatient medications and allergy history reviewed. PE: General: Patient is lethargic, minimally responsive to painful stimuli HEENT: Normocephalic, trachea midline Eyes: No scleral erythema Pulmonary: Clear to auscultation bilaterally, no wheezing Cardio: Regular rate and rhythm GI: Abdomen is soft to palpation : No suprapubic tenderness MSK: No evidence of trauma or malformation of the extremities, no edema Skin: No evidence of rash Neuro: Patient is lethargic, cannot follow commands Psychiatric: N/A INDEPENDENT INTERPRETATIONS: clinical research monitor: (As interpreted by myself): - An order was placed for continuous cardiac monitoring - Patient was noted to be in sinus rhythm with a rate of 90 EKG: (As interpreted by myself): Rate: 83 Rhythm: Sinus rhythm Intervals: Within normal limits ST changes: No ST elevation Time: 0717 Chest x-ray: (As interpreted by myself): No acute disease Interventions provided in ED: -IV fluid bolus Medical Decision Making: IV was established and lab work obtained, patient was placed on monitor worker. Lab work shows no leukocytosis, hemoglobin is stable at 9.6, platelet count is slightly reduced at 103, CMP does not show any critical findings, creatinine is 1.45, troponin is negative x 1. Procalcitonin is low at 0.09. Patient is not hypotensive, he is not tachycardic, low suspicion for sepsis. Urinalysis is indeterminate for infection, will send for culture. CT imaging of the head does not show any evidence of any acute intracranial hemorrhage, CT angiography does show evidence of high-grade stenosis of the right vertebral artery as well as trickle flow in the left vertebral artery that appears chronic or developmental per interpreting radiologist. I did discuss the patient's presentation extensively with his family members on the phone. This includes his son, Francesco, who states the patient would not want any intubation or life support to be initiated. CODE STATUS was updated in the computer. I discussed the patient's presentation with the admitting hospitalist, Dr. Mac, and the patient was placed for admission in guarded condition for further management and workup. I do feel he will require MRI of the brain to evaluate for stroke and further workup for altered mentation. Patient's son was in agreement to this plan. On reassessment prior to admission the patient remains confused and lethargic but he is now more responsive and does turn his head to verbal stimuli when his name is called. Patient was placed for admission in guarded condition. Consultants/Discussions held with other healthcare providers: -Hospitalist, Dr. Mac Disposition discussion held by myself with: -Patient's son Francesco Holloway Diagnosis: 1. Altered mental status with lethargy, acute Disposition: Admission Osman Boateng DO Emergency Medicine Past Med/Surg History Medical History Fracture of rib SCC (squamous cell carcinoma) BCC (basal cell carcinoma of skin) Rib fracture posterior right 11th Bilateral nephrolithiasis Inguinal hernia, bilateral Gallstones Esophageal adenocarcinoma History of, diagnosed 11/2021 Melanoma ON RT ARM. S/p neck dissection and a parotidectomy on 11/16/2015 following failed radiation therapy for the metastatic disease from the skin primary. GERD (gastroesophageal reflux disease) History of eye cancer LEFT Hyperlipidemia History of colon cancer SURGERY>RADIATION THERAPY Diabetes mellitus, type 2 Nonalcoholic fatty liver disease Hypothyroidism ? THYROID CANCER *PT STATES HAD RADIATION 5 TIMES TO NECK Hypertension Henry's esophagus Surgical History History of left cataract surgery History of surgery on arm LYMPH NODES REMOVED FROM RT ARM (RESTRICTION) History of esophagogastroduodenoscopy (EGD) H/O eye surgery SURGERY FOR CANCER ON LEFT EYE/UNSURE OF DETAILS History of tooth extraction H/O colonoscopy H/O right hemicolectomy Family History Mother Diabetes Father Diabetes Other Hyperlipidemia No family history of adverse response to anesthesia Stroke Denies family history of Ovarian cancer Prostate cancer Breast cancer Colorectal cancer Social History Smoking Status: Unknown if ever smoked Age Started Using Tobacco: 11; Age Quit Using Tobacco: 62; packs per day: 1.5; Cigarettes Per Day: 7 YEARS AGO; Second Hand Exposure: Yes; Do You Dip or Chew Tobacco: No; Hx Alcohol Use: No Hx Substance Use: No Preferred Language: Kiswahili Communication Ability: Effective Hearing Ability: Normal 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 Beliefs That Will Affect Care: None marital status: / Current Living Situation: Alone current occupational status: retired Feels Safe at Home: Yes Physical Activity Frequency: Does not Exercise Seatbelt Use: always Sunscreen Use: Yes Assistive Devices: Cane, Denture - Upper, Denture - Lower and Glasses Allergies Allergies Allergy/AdvReac Type Severity Reaction Status Date / Time No Known Allergies Allergy Verified 08/26/23 10:03 Home Meds Home Medications Medication Instructions Recorded Confirmed multivitamin 1 tab PO QPM 01/26/19 08/26/23 insulin aspart U-100 100 unit/mL 8 unit subcut TID 08/07/22 08/26/23 (3 mL) subcutaneous pen (Novolog FlexPen U-100 Insulin aspart) lancets 33 gauge (OneTouch Delica #100 ea 08/07/22 08/21/23 Lancets) pen needle, diabetic 32 gauge x 08/07/22 08/21/23 5/32" (BD Ultra-Fine Pascale Pen Needle) insulin glargine 100 unit/mL (3 9 unit subcut QPM 01/28/23 08/26/23 mL) subcutaneous pen (Lantus Solostar U-100 Insulin) aspirin 81 mg tablet,delayed 81 mg PO DAILY 03/24/23 08/26/23 release (Adult Low Dose Aspirin) furosemide 40 mg tablet 20 mg PO QAM 06/02/23 08/26/23 midodrine 5 mg tablet 5 mg PO TID@0800,1200,1700 06/02/23 08/26/23 omeprazole 40 mg capsule,delayed 40 mg PO DAILY 08/26/23 08/26/23 release Previous Rx's Medication Instructions Recorded polyethylene glycol 3350 17 gram 17 g PO DAILY #30 ea 07/26/22 oral powder packet (Miralax) atorvastatin 40 mg tablet 40 mg PO HS 90 days #90 tabs 11/01/22 spironolactone 100 mg tablet 100 mg PO QAM #90 tabs 11/26/22 OneTouch Verio test strips (blood #300 ea 02/14/23 sugar diagnostic) levothyroxine 88 mcg tablet 88 mcg PO QAM #90 tabs 02/20/23 Wheeled Walker #1 ea 03/24/23 Lift Chair #1 ea 08/15/23 Results & Data (ED) Vital Signs Vital Signs - 24 hr 08/26/23 07:20 08/26/23 07:28 08/26/23 07:34 Temperature 37.0 C Temperature Source Oral Pulse Rate 81 Pulse Rate [Right Finger] 80 Pulse Rate from SpO2 Sensor 90 Pulse Rhythm [Right Finger] Regular Pulse Strength [Right Finger] Normal Respiratory Rate 18 19 Respiratory Effort / Characteristics Spontaneous Non-Labored Respiratory Depth Normal Blood Pressure 117/74 Blood Pressure [Right Arm] 117/74 Blood Pressure Mean 88 Blood Pressure Mean [Right Arm] 88 Blood Pressure Position [Right Arm] Lying Pulse Oximetry 97 97 Oxygen Delivery Method Nasal Cannula Nasal Cannula Nasal Cannula Oxygen Flow Rate 2 2 Sepsis Recent Fever Within 48 Hours No Sepsis New/Unexplained Change in Mental Status Yes Sepsis Action Taken by Nursing No Action Required Oxygen Flow Rate - Titration Pulse Oximetry Post Tiitration 08/26/23 07:36 08/26/23 07:57 08/26/23 08:00 Temperature Temperature Source Pulse Rate 81 Pulse Rate [Right Finger] Pulse Rate from SpO2 Sensor Pulse Rhythm [Right Finger] Pulse Strength [Right Finger] Respiratory Rate Respiratory Effort / Characteristics Respiratory Depth Blood Pressure 117/82 Blood Pressure [Right Arm] Blood Pressure Mean 95 Blood Pressure Mean [Right Arm] Blood Pressure Position [Right Arm] Pulse Oximetry 91 Oxygen Delivery Method Nasal Cannula Nasal Cannula Oxygen Flow Rate 2 Sepsis Recent Fever Within 48 Hours Sepsis New/Unexplained Change in Mental Status Sepsis Action Taken by Nursing Oxygen Flow Rate - Titration 2 Pulse Oximetry Post Tiitration 98 08/26/23 08:30 08/26/23 09:00 08/26/23 09:30 Temperature Temperature Source Pulse Rate 81 80 81 Pulse Rate [Right Finger] Pulse Rate from SpO2 Sensor 79 77 82 Pulse Rhythm [Right Finger] Pulse Strength [Right Finger] Respiratory Rate 22 17 23 Respiratory Effort / Characteristics Respiratory Depth Blood Pressure 113/71 122/69 112/70 Blood Pressure [Right Arm] Blood Pressure Mean 85 86 84 Blood Pressure Mean [Right Arm] Blood Pressure Position [Right Arm] Pulse Oximetry 95 96 97 Oxygen Delivery Method Oxygen Flow Rate Sepsis Recent Fever Within 48 Hours Sepsis New/Unexplained Change in Mental Status Sepsis Action Taken by Nursing Oxygen Flow Rate - Titration Pulse Oximetry Post Tiitration 08/26/23 10:00 08/26/23 10:30 08/26/23 11:00 Temperature Temperature Source Pulse Rate 80 79 84 Pulse Rate [Right Finger] Pulse Rate from SpO2 Sensor 80 79 81 Pulse Rhythm [Right Finger] Pulse Strength [Right Finger] Respiratory Rate 20 19 20 Respiratory Effort / Characteristics Respiratory Depth Blood Pressure 117/63 118/72 116/62 Blood Pressure [Right Arm] Blood Pressure Mean 81 87 80 Blood Pressure Mean [Right Arm] Blood Pressure Position [Right Arm] Pulse Oximetry 96 96 93 Oxygen Delivery Method Oxygen Flow Rate Sepsis Recent Fever Within 48 Hours Sepsis New/Unexplained Change in Mental Status Sepsis Action Taken by Nursing Oxygen Flow Rate - Titration Pulse Oximetry Post Tiitration Laboratory Data 08/26/23 07:50 08/26/23 07:50 Lab Results 08/26/23 08/26/23 08/26/23 Range/Units 07:50 08:00 08:45 WBC 5.81 (4.8-10.8) K/ul RBC 3.43 L (4.70-6.10) M/uL Hgb 9.6 L (14.0-18.0) g/dl Hct 29.8 L (42.0-52.0) % MCV 86.9 (80.0-100.0) fL MCH 28.0 (25.0-34.0) pg MCHC 32.2 (32.0-36.0) g/dL RDW Std Deviation 65.1 H (36.4-46.3) fL RDW Coeff of Emrritt 20.7 H (11.5-14.5) % Plt Count 103 L (130-400) K/uL MPV 10.1 (9.4-12.4) fL Immature Gran % (Auto) 0.3 % Neut % (Auto) 72.0 % Lymph % (Auto) 12.6 % Orange % (Auto) 12.7 % Eos % (Auto) 1.2 % Baso % (Auto) 1.2 % Neut # (Auto) 4.18 (1.40-6.50) K/uL Lymph # (Auto) 0.73 L (1.20-3.40) K/uL Orange # (Auto) 0.74 H (0.11-0.59) K/uL Eos # (Auto) 0.07 (0.00-0.50) K/uL Baso # (Auto) 0.07 (0.00-0.20) K/uL Immature Gran # (Auto) 0.02 (0.01-0.20) K/uL Anisocytosis Present Echinocytes 1+ PT 12.9 H (9.0-12.0) Seconds INR 1.2 H (0.9-1.1) APTT 27 (21-31) Seconds PTT Ratio 1.0 Sodium 134 L (136-145) mmol/L Potassium 4.9 (3.5-5.1) mmol/L Chloride 107 (98-107) mmol/L Carbon Dioxide 21 (21-32) mmol/L Anion Gap 6 (3-11) BUN 34 H (6-23) mg/dl Creatinine 1.45 H (0.6-1.4) mg/dl Est Cr Clr Drug Dosing Not Reportable Est GFR ( Amer) 54.6 ml/min Est GFR (Non-Af Amer) 47.1 ml/min BUN/Creatinine Ratio 23.4 H (10-20) Glucose 120 H (70-99(Fasting)) mg/dl Osmolality (280-300) mOsm/kg Lactate 1.1 (0.4-2.0) mmol/L Calcium 8.3 L (8.6-10.3) mg/dl Total Bilirubin 0.9 (0.2-1.0) mg/dl AST 32 (13-39) U/L ALT 22 (7-52) U/L Alkaline Phosphatase 105 H (34-104) U/L Ammonia Troponin I High Sens 6.1 (0-20) pg/ml Total Protein 6.0 (6.0-8.3) gm/dl Albumin 2.8 L (3.4-5.0) gm/dl Globulin 3.2 (2.5-4.0) gm/dl Albumin/Globulin Ratio 0.9 (0.9-2) Lipase 79 (11-82) U/L Procalcitonin 0.09 (0-0.5) ng/ml Urine Color Mcgraw Urine Appearance Turbid A (Clear) Urine pH 6.0 (4.5-7.5) Ur Specific Parker 1.039 H (1.000-1.030) Urine Protein 1+ H (Negative) Urine Glucose (UA) Negative (Negative) Urine Ketones Negative (Negative) Urine Blood 3+ H (Negative) Urine Nitrite Negative (Negative) Urine Bilirubin 1+ H (Negative) Urine Urobilinogen Positive H (Negative) Ur Leukocyte Esterase 1+ H (Negative) Urine WBC (Auto) >30 H (0-5) /hpf Urine RBC (Auto) >30 H (0-4) /hpf U Hyaline Cast (Auto) 5-10 H (0-5) /lpf U Epithel Cells (Auto) >30 H (0-5) /lpf Urine Bacteria (Auto) Negative (Negative) Urine Yeast Not Reportable Ur Butalbital Confirm Cancelled Urine Opiates Screen Cancelled U Codeine Confrm GC/MS Cancelled Ur Morphine (GC/MS) Cancelled Ur Hydrocodone (GC/MS) Cancelled U Norhydrocodone Conf Cancelled Ur Oxycodone Screen Cancelled U Noroxycodone Confirm Cancelled Ur Oxycodone GC/MS Cancelled U Oxymorphone GC/MS Cancelled EDDP Confirm Cancelled Ur Methadone, Qual Cancelled Ur Methadone Cancelled Ur Hydromorphone (GC/MS) Cancelled Urine Barbiturates Cancelled Ur Phencyclidine Scrn Cancelled Urine PCP Confirm Cancelled Ur Amphetamines Screen Cancelled U Amphetamines Confirm Cancelled Methamphetamine GC/MS Cancelled Ur Amobarbital GC/MS Cancelled U Pentobarbital GC/MS Cancelled U Phenobarbital GC/MS Cancelled U Secobarbital GC/MS Cancelled U [id number] GC/MS Cancelled U Benzodiazepines Scrn Cancelled U 7-Aminoclonazepam Screen Cancelled Ur Nordiazepam GC/MS Cancelled U OH-ethylfluraz GC/MS Cancelled U Lorazepam Cnf GC/MS Cancelled U Oxazepam Confm GC/MS Cancelled Ur Temazepam Cnf GC/MS Cancelled U a-Hydroxytriaz GC/MS Cancelled U [id number] Cancelled Urine Cocaine Cancelled U Cocaine Metab Confirm Cancelled Tetrahydrocannabinol Cancelled U Marijuana (THC) Screen Cancelled Drug Screen Comment Cancelled Ethyl Alcohol mg/dL (<10.0) mg/dl Reference Lab Cancelled 08/26/23 08/26/23 Range/Units 09:27 11:15 WBC (4.8-10.8) K/ul RBC (4.70-6.10) M/uL Hgb (14.0-18.0) g/dl Hct (42.0-52.0) % MCV (80.0-100.0) fL MCH (25.0-34.0) pg MCHC (32.0-36.0) g/dL RDW Std Deviation (36.4-46.3) fL RDW Coeff of Merritt (11.5-14.5) % Plt Count (130-400) K/uL MPV (9.4-12.4) fL Immature Gran % (Auto) % Neut % (Auto) % Lymph % (Auto) % Orange % (Auto) % Eos % (Auto) % Baso % (Auto) % Neut # (Auto) (1.40-6.50) K/uL Lymph # (Auto) (1.20-3.40) K/uL Orange # (Auto) (0.11-0.59) K/uL Eos # (Auto) (0.00-0.50) K/uL Baso # (Auto) (0.00-0.20) K/uL Immature Gran # (Auto) (0.01-0.20) K/uL Anisocytosis Echinocytes PT (9.0-12.0) Seconds INR (0.9-1.1) APTT (21-31) Seconds PTT Ratio Sodium (136-145) mmol/L Potassium (3.5-5.1) mmol/L Chloride (98-107) mmol/L Carbon Dioxide (21-32) mmol/L Anion Gap (3-11) BUN (6-23) mg/dl Creatinine (0.6-1.4) mg/dl Est Cr Clr Drug Dosing Est GFR ( Amer) ml/min Est GFR (Non-Af Amer) ml/min BUN/Creatinine Ratio (10-20) Glucose (70-99(Fasting)) mg/dl Osmolality 297 (280-300) mOsm/kg Lactate (0.4-2.0) mmol/L Calcium (8.6-10.3) mg/dl Total Bilirubin (0.2-1.0) mg/dl AST (13-39) U/L ALT (7-52) U/L Alkaline Phosphatase (34-104) U/L Ammonia TNP 114.0 H Troponin I High Sens (0-20) pg/ml Total Protein (6.0-8.3) gm/dl Albumin (3.4-5.0) gm/dl Globulin (2.5-4.0) gm/dl Albumin/Globulin Ratio (0.9-2) Lipase (11-82) U/L Procalcitonin (0-0.5) ng/ml Urine Color Urine Appearance (Clear) Urine pH (4.5-7.5) Ur Specific Parker (1.000-1.030) Urine Protein (Negative) Urine Glucose (UA) (Negative) Urine Ketones (Negative) Urine Blood (Negative) Urine Nitrite (Negative) Urine Bilirubin (Negative) Urine Urobilinogen (Negative) Ur Leukocyte Esterase (Negative) Urine WBC (Auto) (0-5) /hpf Urine RBC (Auto) (0-4) /hpf U Hyaline Cast (Auto) (0-5) /lpf U Epithel Cells (Auto) (0-5) /lpf Urine Bacteria (Auto) (Negative) Urine Yeast Ur Butalbital Confirm Urine Opiates Screen U Codeine Confrm GC/MS Ur Morphine (GC/MS) Ur Hydrocodone (GC/MS) U Norhydrocodone Conf Ur Oxycodone Screen U Noroxycodone Confirm Ur Oxycodone GC/MS U Oxymorphone GC/MS EDDP Confirm Ur Methadone, Qual Ur Methadone Ur Hydromorphone (GC/MS) Urine Barbiturates Ur Phencyclidine Scrn Urine PCP Confirm Ur Amphetamines Screen U Amphetamines Confirm Methamphetamine GC/MS Ur Amobarbital GC/MS U Pentobarbital GC/MS U Phenobarbital GC/MS U Secobarbital GC/MS U [id number] GC/MS U Benzodiazepines Scrn U 7-Aminoclonazepam Screen Ur Nordiazepam GC/MS U OH-ethylfluraz GC/MS U Lorazepam Cnf GC/MS U Oxazepam Confm GC/MS Ur Temazepam Cnf GC/MS U a-Hydroxytriaz GC/MS U [id number] Urine Cocaine U Cocaine Metab Confirm Tetrahydrocannabinol U Marijuana (THC) Screen Drug Screen Comment Ethyl Alcohol mg/dL < 10.0 (<10.0) mg/dl Reference Lab Administered Medications Parenteral Electrolytes (Plasma-Lyte A Ph 7.4) 1,000 mls @ 80 mls/hr IV .[id number] BATSHEVA Stop: 09/25/23 11:29 Last Admin: 08/26/23 13:54 Dose: 80 mls/hr Documented By: ALDO Discontinued Medications Gadobutrol (Gadobutrol 65ml Vial) 8 ml IV ONCE ONE Stop: 08/26/23 13:23 Last Admin: 08/26/23 13:20 Dose: 8 ml Documented By: EVA Sodium Chloride (Nss) 1,000 mls @ 999 mls/hr IV .Q1H1M STA Stop: 08/26/23 08:18 Last Infusion: 08/26/23 09:28 Dose: Infused Documented By: [facility] [place] Admin: 08/26/23 08:02 Dose: 999 mls/hr Documented By: ALDO Ceftriaxone Sodium (Rocephin) 50 mls @ 100 mls/hr IV NOW STA Stop: 08/26/23 11:52 Last Infusion: 08/26/23 12:46 Dose: Infused Documented By: Admin: 08/26/23 11:49 Dose: 100 mls/hr Documented By: ALDO Ioversol (Optiray 320 125ml) 112 ml IV ONCE ONE Stop: 08/26/23 07:32 Last Admin: 08/26/23 07:31 Dose: 112 ml Documented By: SARAH Ioversol (Optiray 320 500ml) 85 ml IV ONCE ONE Stop: 08/26/23 13:35 Last Admin: 08/26/23 13:34 Dose: 85 ml Documented By: BRADLEY Naloxone HCl (Naloxone Hcl 0.4 Mg/1 Ml Vial/Carp) Confirm Administered Dose 0.4 mg .ROUTE .STK-MED ONE Stop: 08/26/23 08:56 Last Admin: 08/26/23 09:01 Dose: 0.4 mg Documented By: MODESTO Imaging Data Radiologist's Impression: Chest X-Ray 08/26/23 07:18 XR chest 1V portable CLINICAL HISTORY: Chest pain, nonspecific TECHNIQUE: Single frontal radiograph of the chest was obtained. Comparison: Comparison is made to chest radiograph 08/24/2023 FINDINGS: No lines and tubes are seen. The cardiomediastinal silhouette is normal. Atelectasis is at the right lung base. No evidence of pleural effusion or pneumothorax. IMPRESSION: No acute chest disease. ACT 112: Negative or not required by law. Electronically signed by: Donovan Smith M.D. 08/26/2023 7:44 AM Head CTA 08/26/23 07:18 CT angio head wo/w CLINICAL HISTORY: 73 years-old Male with AMS. Acutely altered mental status COMPARISON STUDY: Head CT 07/18/2022 TECHNIQUE: Unenhanced axial CT scan of the brain is performed. Subsequently, following the IV administration of 112 cc of Optiray, CT angiogram of the brain was performed from the skull base to the vertex. Images are reviewed in the axial, sagittal, and coronal planes. 3-D MIPS images are created and assessed. IV contrast was administered without complication. All measurements were obtained according to NASCET criteria. A dose lowering technique was utilized adhering to the principles of ALARA. CT DOSE: 781.94 mGy.cm FINDINGS: CT BRAIN: There is no acute intracranial hemorrhage, midline shift, hydrocephalus, intracranial mass, territorial ischemia or abnormal extra-axial collections. Involutional changes with chronic microvascular ischemic disease. No abnormal intra-axial or extra-axial enhancement. 3.9 cm focus of polypoid collateral thickening within the left maxillary sinus, increased in size from prior. The patient is edentulous. No calvarial fracture. Paranasal sinuses are clear. CT ANGIOGRAM OF THE BRAIN: The imaged bilateral internal carotid arteries are patent. The bilateral anterior and middle cerebral arteries are also patent. There is a kinking with high-grade narrowing involving the V2 segment of the right vertebral artery at the level of C2-C3, image 4 series 5. There is minimal flow identified within the distal V2, V3 and V4 segments of the left vertebral artery. The basilar artery is patent. Patent posterior cerebral arteries. Dural sinuses appear patent. IMPRESSION: 1. No acute intracranial abnormality. 2. Age-indeterminate high-grade stenosis of the V2 segment of the right vertebral artery at the level of C2-C3. 3. There is only trickle flow noted within the imaged left vertebral artery which may be chronic or developmental. 4. Polypoid mucosal thickening in the left maxillary sinus. ACT 112: Negative or not required by law. The above report was generated using voice recognition software. It may contain grammatical, syntax or spelling errors. Electronically signed by: Erwin Gomez M.D. 08/26/2023 8:13 AM Brain MRI 08/26/23 10:09 MRI OF THE BRAIN COMBO CLINICAL HISTORY: Unresponsive. Cancer history. COMPARISON STUDY: CT of the brain dated 08/26/2023. TECHNIQUE: MRI of the brain was performed utilizing various T1 and T2-weighted sequences in the axial, sagittal, and coronal planes. Contrast-enhanced sequences were acquired following the administration of 8 cc of Gadavist. FINDINGS: Brain parenchyma: There is age-related involutional change noting advanced confluent subcortical and periventricular microangiopathic disease. There is no hemorrhage or mass effect. There is no restricted diffusion to suggest acute ischemia. No enhancing mass lesion is identified on the postcontrast images. Morrison-white matter differentiation is preserved. No extra-axial fluid collection is seen. The cerebellar tonsils are normal in configuration. Ventricles, sulci, and cisterns: Prominent secondary to involutional change. Pituitary and sella: Unremarkable. Intracranial vasculature: Normal flow voids are maintained at the skull base. Orbits: The bony orbits are grossly intact. Orbital contents are normal in appearance noted bilateral ocular lens implant. Sinuses and mastoids: There is a 3.6 cm retention cyst in the left maxillary antrum. The paranasal sinuses and the mastoid air cells are otherwise clear. Calvarium: Unremarkable. Cervical cord: Partially visualized cervical spinal cord is normal in morphology and signal intensity. IMPRESSION: No acute intracranial abnormality. ACT 112: Negative or not required by law. Electronically signed by: Mateusz May M.D. 08/26/2023 1:39 PM Discharge Plan Visit Data Chief Complaint: Altered Mental Status ED Provider: Osman Boateng Discharge Problem: Altered mental state Discharge Instructions Interventions: ED Discharge Assessment Last Done: 08/26/23 13:50 Discharge Problem: Altered mental state Qualifiers: Altered mental status type: unspecified Qualified Code(s): R41.82 - Altered mental status, unspecified
[2023-08-26] MEDS: OPTIRAY 320 125ml IV ONE (07:31)
--- NOTE | 2023-08-26 07:45 | XRay Report ---
XR chest 1V portable CLINICAL HISTORY: Chest pain, nonspecific TECHNIQUE: Single frontal radiograph of the chest was obtained. Comparison: Comparison is made to chest radiograph 08/24/2023 FINDINGS: No lines and tubes are seen. The cardiomediastinal silhouette is normal. Atelectasis is at the right lung base. No evidence of pleural effusion or pneumothorax. IMPRESSION: No acute chest disease. ACT 112: Negative or not required by law. Electronically signed by: Donovan Smith M.D. 08/26/2023 7:44 AM
[2023-08-26] MEDS: SODIUM CHLORIDE 0.9% 1,000 ML IV STA (08:02)
[2023-08-26 08:11] LABS: Basophils # (auto) 0.07 K/uL (0.00-0.20); Basophils % (auto) 1.2 %; Eosinophils # (auto) 0.07 K/uL (0.00-0.50); Eosinophils % (auto) 1.2 %; Hematocrit (blood only) 29.8 % (42.0-52.0); Hemoglobin 9.6 g/dl (14.0-18.0); Immature Granulocytes # (auto) 0.02 K/uL (0.01-0.20); Immature Granulocytes % (auto) 0.3 %; Lymphocytes # (auto) 0.73 K/uL (1.20-3.40); Lymphocytes % (auto) 12.6 %; Mean Corpuscular Hgb Conc 32.2 g/dL (32.0-36.0); Mean Corpuscular Volume 86.9 fL (80.0-100.0); Mean Platelet Volume 10.1 fL (9.4-12.4); Monocytes # (auto) 0.74 K/uL (0.11-0.59); Monocytes % (auto) 12.7 %; Neutrophils # (auto) 4.18 K/uL (1.40-6.50); Platelet Count 103 K/uL (130-400); RDW Coefficient of Variation 20.7 % (11.5-14.5); RDW Standard Deviation 65.1 fL (36.4-46.3); Red Blood Count 3.43 M/uL (4.70-6.10); White Blood Count 5.81 K/ul (4.8-10.8)
--- NOTE | 2023-08-26 08:14 | CT Scan Report ---
CT angio head wo/w CLINICAL HISTORY: 73 years-old Male with AMS. Acutely altered mental status COMPARISON STUDY: Head CT 07/18/2022 TECHNIQUE: Unenhanced axial CT scan of the brain is performed. Subsequently, following the IV adminis tration of 112 cc of Optiray, CT angiogram of the brain was performed from the skull base to the vert ex. Images are reviewed in the axial, sagittal, and coronal planes. 3-D MIPS images are created and a ssessed. IV contrast was administered without complication. All measurements were obtained according to NASCET criteria. A dose lowering technique was utilized adhering to the principles of ALARA. CT DOSE: 781.94 mGy.cm FINDINGS: CT BRAIN: There is no acute intracranial hemorrhage, midline shift, hydrocephalus, intracranial mass, territori al ischemia or abnormal extra-axial collections. Involutional changes with chronic microvascular isch emic disease. No abnormal intra-axial or extra-axial enhancement. 3.9 cm focus of polypoid collateral thickening within the left maxillary sinus, increased in size from prior. The patient is edentulous. No calvarial fracture. Paranasal sinuses are clear. CT ANGIOGRAM OF THE BRAIN: The imaged bilateral internal carotid arteries are patent. The bilateral anterior and middle cerebral arteries are also patent. There is a kinking with high-grade narrowing involving the V2 segment of t he right vertebral artery at the level of C2-C3, image 4 series 5. There is minimal flow identified w ithin the distal V2, V3 and V4 segments of the left vertebral artery. The basilar artery is patent. P atent posterior cerebral arteries. Dural sinuses appear patent. IMPRESSION: 1. No acute intracranial abnormality. 2. Age-indeterminate high-grade stenosis of the V2 segment of the right vertebral artery at the level of C2-C3. 3. There is only trickle flow noted within the imaged left vertebral artery which may be chronic or d evelopmental. 4. Polypoid mucosal thickening in the left maxillary sinus. ACT 112: Negative or not required by law. The above report was generated using voice recognition software. It may contain grammatical, syntax o r spelling errors. Electronically signed by: Erwin Gomez M.D. 08/26/2023 8:13 AM
[2023-08-26 08:20] LABS: Appearance Urine Turbid (Clear); Bacteria Urine Automated Negative (Negative); Blood Urine 3+ (Negative); Color Urine Orange; Epithelial Cell Urine Auto >30 /lpf (0-5); Glucose Urine UA Negative (Negative); Ketones Urine Negative (Negative); Leukocyte Esterase Urine 1+ (Negative); Nitrite Urine Negative (Negative); Protein Urine 1+ (Negative); Specific Gravity Urine 1.039 (1.000-1.030); Urobilinogen Urine Positive (Negative); WBC Urine Automated >30 /hpf (0-5)
[2023-08-26 08:28] LABS: Alanine Aminotransferase 22 U/L (7-52); Albumin Globulin Ratio 0.9 (0.9-2); Albumin Level 2.8 gm/dl (3.4-5.0); Alkaline Phosphatase 105 U/L (34-104); Anion Gap 6 (3-11); Aspartate Aminotransferase 32 U/L (13-39); BUN Creatinine Ratio 23.4 (10-20); Bilirubin,Total 0.9 mg/dl (0.2-1.0); Blood Urea Nitrogen 34 mg/dl (6-23); Calcium 8.3 mg/dl (8.6-10.3); Carbon Dioxide 21 mmol/L (21-32); Chloride 107 mmol/L (98-107); Est GFR (African American) 54.6 ml/min; Est GFR (Non-African American) 47.1 ml/min; Globulin 3.2 gm/dl (2.5-4.0); Glucose 120 mg/dl (70-99(Fasting)); Lipase 79 U/L (11-82); Potassium 4.9 mmol/L (3.5-5.1); Sodium 134 mmol/L (136-145)
[2023-08-26 08:31] LABS: Bilirubin Urine 1+ (Negative)
[2023-08-26 08:35] LABS: Troponin I High Sensitivity 6.1 pg/ml (0-20)
[2023-08-26 08:37] LABS: INR 1.2 (0.9-1.1); Partial Thromboplastin Time 27 Seconds (21-31); Prothrombin Time 12.9 Seconds (9.0-12.0)
[2023-08-26 08:38] LABS: Anisocytosis Present; Echinocytes 1+
[2023-08-26 08:44] LABS: RBC Urine Automated >30 /hpf (0-4)
--- NOTE | 2023-08-26 08:48 | Electrocardiogram Report ---
Test Reason : Blood Pressure : / mmHG Vent. Rate : 083 BPM Atrial Rate : 000 BPM P-R Int : 000 ms QRS Dur : 086 ms QT Int : 372 ms P-R-T Axes : 000 068 080 degrees QTc Int : 437 ms Sinus rhythm with frequent Premature atrial complexes Abnormal ECG When compared with ECG of 18-JUL-2022 15:41, No significant change Confirmed by Mo Marie ([id number]) on 08/26/2023 8:48:13 AM Referred By: [facility] Confirmed By:Mo Marie
[2023-08-26] MEDS: NALOXONE HCL 0.4 MG/1 ML VIAL/CARP ONE (09:01)
--- OUTSIDE RECORDS SUMMARY | 2023-08-26 10:18 | External Medical Summary ---
Author Name Unknown Address Unknown Organization K09:[facility] [place] [place] [address] Laboratory Report Ordering Provider Test Date Status HY,DEPAMPHILIS 08/25/2023 06:57:37 Final Observation Date Value Abnormality Reference (Units ) Status BUN 08/25/2023 06:57:37 34 Above high normal 6-20 (mg/dL) Final Creatinine 08/25/2023 06:57:37 1.3 Above high normal 0.6-1.2 (mg/dL) Final Glomerular filtration rate/1.73 sq M.predicted [Volume Rate/Area] in Serum, Plasma or Blood by Creatinine-based formula (CKD-EPI) 08/25/2023 06:57:37 60 >=60 (mL/min) Final eGFR is calculated based on the CKD-EPI 2020 equation SODIUM 08/25/2023 06:57:37 141 135-146 (m mol/L) Final Potassium 08/25/2023 06:57:37 4.5 3.5-5.1 (m mol/L) Final Cl 08/25/2023 06:57:37 110 Above high normal 98 -107 (mmol/L) Final CO2 08/25/2023 06:57:37 22 22-32 (mmo l/L) Final Anion gap 08/25/2023 06:57:37 9 7-15 (mmol /L) Final Glucose 08/25/2023 06:57:37 92 70-120 (mg /dL) Final Calcium 08/25/2023 06:57:37 8.7 8.4-10.2 ( mg/dL) Final Performing Location [facility] [place] [address]
--- NOTE | 2023-08-26 10:35 | History & Physical Report ---
Date of Service August 26, 2023 Assessment & Plan (1) AMS (altered mental status): Plan: Altered mental status, suspect hepatic encephalopathy Baseline conversational and alert. 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 MELD15, MANAGER STRATEGY. - Ammonia level initially delayed and recollected due to hemolysis. Subsequently returned elevated at 114, likely hepatic encephalopathy. Patient unable to safely tolerate oral lactulose; lactulose enema every 8 hours ordered until able to switch to p.o. safe -Patient woke up altered, unresponsive 3/5. Opens eyes intermittently but does not track or follow commands or withdraw to painful stimuli at time of admitting assessment Patient with no infectious symptoms evening prior to admit, had a reducible hernia otherwise no abdominal pain or sx; no fever/chills/sweats, no cough prior to admission. Had urinary retention for which Scales was placed 2 days prior. Procalcitonin is normal, there is no leukocytosis, and no fever. UA contaminated versus infected with indwelling Scales. Exchange ordered. UC pending. Covered with Rocephin Serum osmolality normal Patient is not able to swallow p.o. medications at this time due to mental status, oral meds have been held Patient normal yesterday and no history of high ammonia levels with decompensation per family. CT a/P with contrast pending, ?Portal thrombosis .Baseline renal function recently appears to range around 1.241.66, 1.45 on admission. (2) Type 1 diabetes mellitus: Plan: Type I DM A1c previously well-controlled. More recently on Lantus 9 units at night. Dose reduced while NPO, continue 6 units at bedtime with sliding scale BSG checks every 4 hours while NPO, goal BSG [id number] - no hypoglycemia on admit (3) Liver cirrhosis: Plan: Cirrhosis, acute hyperammonemia With history of SBP 07/18/2022 hospitalized for this with liver cirrhosis, cirr hotic coagulopathy, ANDRES, hypotension. Gradually recovered from this after discharged to rehab No abdominal warmth/tenderness. No abdominal pain [employer]. +ascites Patient with right lower extremity swelling with Doppler for DVT pending. CT of the abdomen pelvis with contrast for liver evaluation and? PVT Follows with [facility] - On admission sodium 134, INR 1.2, bilirubin is normal, no transaminitis. MELD15, CP-C. -Treatment with lactulose enemas as noted for hepatic encephalopathy (4) Hypertension: Plan: normotensive on admit (5) Hyperlipidemia: Plan: Statin held while npo (6) Esophageal adenocarcinoma: Plan: Multiple cancer history Stage IIIb malignant melanoma with recurrent skin disease and multiple skin nodules primary. s/p Zelboraf followed by [facility] x2 years with good response, last tx 2019. 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 History of T3 N0 colon adenocarcinoma s/p resection 2013 without known recurrence GEJ adenocarcinoma PET scan 04/28/2019 was negative - MRI on admit pending, ordered w/ con due to history of maligancy. Last PET without mets. No acute change in tx. (7) Vertebral artery stenosis: Plan: Frailty, history of dizziness and imbalance Patient had seen outpatient providers for dizziness and intermittent weakness, initially thought to be multifactorial with diabetic nephropathy/deconditioning/orthostatic hypotension. Patient has vertebral stenosis on the right, and either chronic or development trickle flow on the left consistent with posterior insufficiency. This does not appear to be new. Patient does not wish for aggressive surgical intervention surgeries, continue antiplatelet when able to tolerate meds (8) CKD (chronic kidney disease): Plan: CKD Baseline creatinine 1.4 recently, creatinine 1.45 on admission Trend BMP daily (9) Goals of care, counseling/discussion: Plan: Goals of Care Reviewed multiple options for goals of care with family at bedside, including all continued measures and diagnostic evaluation, admission but without escalation of care, DRY HOUSE ATTENDANT, and outpatient hospice options. His son would like to have additional conversations with Pasha's sister who will be in the hospital in the next hour or so; however when son and grandson both agree that he would not want aggressive measures including surgery, any attempts at life support, or escalation of care. He would not want measures to extend his life if they came to a compromise to his quality of life at this time. On shared decision making agree with admitting Pasha to telemetry, completing MRI for further information, and completing metabolic and infectious workups including ammonia evaluation. He has been given Rocephin x 1 for contaminated versus infected UA, and this will also cover for SBP prophylaxis. OK with fluids for at least the next day. he has had no symptoms of SBP and had not had abdominal pain or fevers. If patient improves then family will reassess at that point, should patient worsen, or have irreversible cause of encephalopathy would want to move to DRY HOUSE ATTENDANT versus hospice at that time. History of Present Illness Primary Care Provider: Rosalva Bravo MD Pasha is a 73-year-old male with a past medical history of compensated cirr hosis, hyperlipidemia, colon cancer, melanoma, SCC, BCC, prior spontaneous bacterial peritonitis, type 1 diabetes mellitus who was recently seen in the ER 2 days prior to admission for urinary retention and constipation and had a Scales placed and he was subsequently discharged to inpatient rehab who was reportedly in his normal state of health last night when going to bed however when nurses went to deliver morning medications was unresponsive to verbal stimuli and minimally responsive to noxious stimuli with a normal blood pressure, heart rate, and O2 sat. He was transported to [facility] by EMS for additional evaluation and care While in the ER initial evaluation is with a contaminated versus infected appearing UA in the setting of indwelling Scales but without fever or leukocytosis, with a normal Pro-Alejo, and with normal lactate. Ammonia is drawn due to history of cirrhosis, this is pending and required redraw to hemolysis at time of initial assessment. Per collateral patient had not had any precipitating confusion before going to bed the evening before and is conversational and generally well oriented at baseline. Head CT/CTA shows no acute intracranial abnormality, age-indeterminate high- grade stenosis of RIGHT V2 at C2-C3 with trickle left vertebral flow likely chronic or developmental. Chest x-ray was with no acute finding, EKG was sinus with PACs and no signs of territorial ischemia or A-fib. Patient has a history of type 1 diabetes on insulin, glucose on admission 120. Pasha is seen with multiple family members including his son present. Family reports that he was otherwise well last night, but had had gradual decline, challenges with cirrhosis due to a past history of alcohol use, multiple cancers, diabetes and expressed frustration with his continued health decline. He has not had any fever, chills, sweats or infectious symptoms yesterday, had a reducible hernia for which she did not want surgery otherwise has no abdominal pain or symptoms recently, and had not been on any narcotics or sedating medications in the family's knowledge. Family reports he does not drink alcohol or use tobacco products currently, does have a past history of alcohol use. Has been compliant with all medications. Has not had any recent chest pain or chest pressure. No cough or shortness of breath. Patient had had intermittent persistent dizziness that he had been seen multiple times for it as an outpatient but which has not changed recently. At bedside family notes that he had expressed frustration with his current quality of life and that he was ready to pass. He has had discussions with his family regarding his life insurance recently, and his son notes that he would not want aggressive measures likely to harm his quality of life. No history of SI/HI.Reviewed multiple options for goals of care with family at bedside, including all continued measures and diagnostic evaluation, admission but without escalation of care, DRY HOUSE ATTENDANT, and outpatient hospice options. His son would like to have additional conversations with Pasha's sister who will be in the hospital in the next hour or so; however when son and grandson both agree that he would not want aggressive measures including surgery, any attempts at life support, or escalation of care. He would not want measures to extend his life if they came to a compromise to his quality of life at this time. On shared decision making agree with admitting Pasha to telemetry, completing MRI for further information, and completing metabolic and infectious workups including ammonia evaluation. He has been given Rocephin x 1 for contaminated versus infected UA, and this will also cover for SBP prophylaxis. no abd pain. OK with fluids for at least the next day. he has had no symptoms of SBP and had not had abdominal pain or fevers. If patient improves then family will reassess at that point, should patient worsen, or have irreversible cause of encephalopathy would want to move to DRY HOUSE ATTENDANT versus h ospice at that time. Reviewed multiple options for goals of care with family at bedside, including all continued measures and diagnostic evaluation, admission but without escalation of care, DRY HOUSE ATTENDANT, and outpatient hospice options. His son would like to have additional conversations with Pasha's sister who will be in the hospital in the next hour or so; however when son and grandson both agree that he would not want aggressive measures including surgery, any attempts at life support, or escalation of care. He would not want measures to extend his life if they came to a compromise to his quality of life at this time. On shared decision making agree with admitting Pasha to telemetry, completing MRI for further information, and completing metabolic and infectious workups including ammonia levels and hepatic encephalopathy eval. He has been given Rocephin x 1 for contaminated versus infected UA, and this will also cover for SBP prophylaxis. OK with fluids for at least the next day. he has had no symptoms of SBP and had not had abdominal pain or fevers. If patient improves then family will reassess at that point, should patient worsen, or have irreversible cause of encephalopathy would want to move to DRY HOUSE ATTENDANT versus hospice at that time. Allergies Allergy/AdvReac Type Severity Reaction Status Date / Time No Known Allergies Allergy Verified 08/26/23 10:03 Home Medications Medication Instructions Recorded Confirmed Type multivitamin 1 tab PO QPM 01/26/19 08/26/23 History polyethylene glycol 3350 17 gram 17 g PO DAILY #30 ea 07/26/22 08/26/23 Rx oral powder packet (Miralax) insulin aspart U-100 100 unit/mL 8 unit subcut TID 08/07/22 08/26/23 History (3 mL) subcutaneous pen (Novolog FlexPen U-100 Insulin aspart) lancets 33 gauge (OneTouch Delica #100 ea 08/07/22 08/21/23 History Lancets) pen needle, diabetic 32 gauge x 08/07/22 08/21/23 History 5/32" (BD Ultra-Fine Pascale Pen Needle) atorvastatin 40 mg tablet 40 mg PO HS 90 days #90 tabs 11/01/22 08/26/23 Rx spironolactone 100 mg tablet 100 mg PO QAM #90 tabs 11/26/22 08/26/23 Rx insulin glargine 100 unit/mL (3 9 unit subcut QPM 01/28/23 08/26/23 History mL) subcutaneous pen (Lantus Solostar U-100 Insulin) OneTouch Verio test strips (blood #300 ea 02/14/23 08/21/23 Rx sugar diagnostic) levothyroxine 88 mcg tablet 88 mcg PO QAM #90 tabs 02/20/23 08/26/23 Rx Wheeled Walker #1 ea 03/24/23 08/21/23 Rx aspirin 81 mg tablet,delayed 81 mg PO DAILY 03/24/23 08/26/23 History release (Adult Low Dose Aspirin) furosemide 40 mg tablet 20 mg PO QAM 06/02/23 08/26/23 History midodrine 5 mg tablet 5 mg PO TID@0800,1200,1700 06/02/23 08/26/23 History Lift Chair #1 ea 08/15/23 08/21/23 Rx omeprazole 40 mg capsule,delayed 40 mg PO DAILY 08/26/23 08/26/23 History release Past Med/Surg History Medical History Fracture of rib SCC (squamous cell carcinoma) BCC (basal cell carcinoma of skin) Rib fracture posterior right 11 Bilateral nephrolithiasis Inguinal hernia, bilateral Gallstones Esophageal adenocarcinoma History of, diagnosed 11/2021 Melanoma ON RT ARM. S/p neck dissection and a parotidectomy on 11/16/2015 following failed radiation therapy for the metastatic disease from the skin primary. GERD (gastroesophageal reflux disease) History of eye cancer LEFT Hyperlipidemia History of colon cancer SURGERY>RADIATION THERAPY Diabetes mellitus, type 2 Nonalcoholic fatty liver disease Hypothyroidism ? THYROID CANCER *PT STATES HAD RADIATION 5 TIMES TO NECK Hypertension Henry's esophagus Surgical History History of left cataract surgery History of surgery on arm LYMPH NODES REMOVED FROM RT ARM (RESTRICTION) History of esophagogastroduodenoscopy (EGD) H/O eye surgery SURGERY FOR CANCER ON LEFT EYE/UNSURE OF DETAILS History of tooth extraction H/O colonoscopy H/O right hemicolectomy Family History Mother Diabetes Father Diabetes Other Hyperlipidemia No family history of adverse response to anesthesia Stroke Denies family history of Ovarian cancer Prostate cancer Breast cancer Colorectal cancer Social History Smoking Status: Unknown if ever smoked Age Started Using Tobacco: 11; Age Quit Using Tobacco: 62; packs per day: 1.5; Cigarettes Per Day: 7 YEARS AGO; Second Hand Exposure: Yes; Do You Dip or Chew Tobacco: No; Hx Alcohol Use: No Hx Substance Use: No Preferred Language: Congolese Communication Ability: Effective Hearing Ability: Normal Radiotelegrapher Required: No Beliefs That Will Affect Care: None marital status: / Current Living Situation: Alone current occupational status: retired Feels Safe at Home: Yes Physical Activity Frequency: Does not Exercise Seatbelt Use: always Sunscreen Use: Yes Assistive Devices: Cane, Denture - Upper, Denture - Lower and Glasses Physical Exam Physical Exam: General: Lethargic. DOes no follow commands, answer questions, or track with eyes. Opens eyes intermittently to noxious stimuli but does not withdraw to thumb pinch bilaterally HEENT: Atraumatic, normocephalic. ROSALES. Does not track with eyes. No icterus. Pulm: CTAB A&P. -wheezes, -rales, -rhonchi. Symmetrical chest rise. No increased work of breathing. No respiratory distress. Cardiac: RRR, -mrg. Radial pulses intact and symmetrical. Abdominal: +fluid wave, softly distended. No warmth, guarding, or spasm. No erythema. BS present. Ext: Holloway sno follow commands, unable to assess strength/sensation. RLE pitting edema. Results & Data Results & Data Vital Signs (Past 12 Hours) Vital Signs Temp Pulse Pulse Resp BP BP Pulse Ox 08/26/23 09:00 80 17 122/69 96 08/26/23 08:30 81 22 113/71 95 08/26/23 08:00 117/82 08/26/23 07:57 81 08/26/23 07:36 91 08/26/23 07:34 81 19 117/74 97 08/26/23 07:28 80 18 117/74 97 08/26/23 07:20 37.0 C O2 Del Method O2 Flow Rate 08/26/23 09:00 08/26/23 08:30 08/26/23 08:00 Nasal Cannula 2 08/26/23 07:57 08/26/23 07:36 Nasal Cannula 08/26/23 07:34 Nasal Cannula 2 08/26/23 07:28 Nasal Cannula 2 08/26/23 07:20 Nasal Cannula PG Care Time/CCT Total # of Minutes Spent Total Time Spent with Patient: Total time spent is greater than 50% in coordination of care (as documented) at patient's floor/unit and/or counseling patient: Coding Level of Care Code 14151 INT INP/OBS CARE 3/75MIN Diagnoses AMS (altered mental status) R41.82 Type 1 diabetes mellitus E10.9 Liver cirrhosis K74.60 Hypertension I10 Hyperlipidemia E78.5 Esophageal adenocarcinoma C15.9 Vertebral artery stenosis I65.09 CKD (chronic kidney disease) N18.9 Goals of care, counseling/discussion Z71.89
[2023-08-26] MEDS: GADOBUTROL 65ML VIAL IV ONE (13:20)
[2023-08-26] MEDS: OPTIRAY 320 500ml IV ONE (13:34)
--- NOTE | 2023-08-26 13:41 | Magnetic Resonance Report ---
MRI OF THE BRAIN COMBO CLINICAL HISTORY: Unresponsive. Cancer history. COMPARISON STUDY: CT of the brain dated 08/26/2023. TECHNIQUE: MRI of the brain was performed utilizing various T1 and T2-weighted sequences in the axial , sagittal, and coronal planes. Contrast-enhanced sequences were acquired following the administratio n of 8 cc of Gadavist. FINDINGS: Brain parenchyma: There is age-related involutional change noting advanced confluent subcortical and periventricular microangiopathic disease. There is no hemorrhage or mass effect. There is no restrict ed diffusion to suggest acute ischemia. No enhancing mass lesion is identified on the postcontrast im ages. Morrison-white matter differentiation is preserved. No extra-axial fluid collection is seen. The ce rebellar tonsils are normal in configuration. Ventricles, sulci, and cisterns: Prominent secondary to involutional change. Pituitary and sella: Unremarkable. Intracranial vasculature: Normal flow voids are maintained at the skull base. Orbits: The bony orbits are grossly intact. Orbital contents are normal in appearance noted bilateral ocular lens implant. Sinuses and mastoids: There is a 3.6 cm retention cyst in the left maxillary antrum. The paranasal si nuses and the mastoid air cells are otherwise clear. Calvarium: Unremarkable. Cervical cord: Partially visualized cervical spinal cord is normal in morphology and signal intensity . IMPRESSION: No acute intracranial abnormality. ACT 112: Negative or not required by law. Electronically signed by: Mateusz May M.D. 08/26/2023 1:39 PM
[2023-08-26] MEDS ORDERED: CARBOHYDRATES FOR HYPOGLYCEMIA PO PRN (13:50)
[2023-08-26] MEDS ORDERED: PHARMACY GLYCEMIC MGMT CONSULT PRN (13:50)
[2023-08-26] MEDS ORDERED: GLUCOSE 10 TAB/TUBE PO PRN (13:50)
[2023-08-26] MEDS ORDERED: GLUCOSE 40% GEL 15 GM TUBE PO PRN (13:50)
[2023-08-26] MEDS ORDERED: ACETAMINOPHEN 1,000 MG/100 ML VIAL IV PRN (13:50)
[2023-08-26] MEDS ORDERED: DEXTROSE 50% 50 ML SYRINGE IV PRN (13:50)
[2023-08-26] MEDS ORDERED: GLUCAGON FOR INJ 1 MG VIAL SQ PRN (13:50)
[2023-08-26] MEDS: PLASMA-LYTE A 1,000 ML IV SCH (13:54)
--- NOTE | 2023-08-26 13:58 | CT Scan Report ---
CT abd pelvis IV con only CLINICAL HISTORY: new acute hyperammonemia, ascites, cirrhosis. ?PVT TECHNIQUE: Helical axial images of the abdomen and pelvis were obtained and displayed. Automated dose lowering techniques and/or adjustment according to patient size were utilized for this exam. This e xam was performed with intravenous contrast. CT DOSE: 1244.45 mGy.cm COMPARISON: Comparison is made to CT abdomen pelvis 126 3 FINDINGS: Lower chest: Trace left pleural effusion is seen. Liver: Nodular contour of the liver is seen compatible with cirrhosis. Gallbladder and biliary tree: The gallbladder is contracted with calcified stones. No intra- or extra hepatic biliary ductal dilation. Pancreas: Unremarkable, no focal lesions. Spleen: Unremarkable. Adrenals: Prominence of the adrenals are seen. Kidneys and ureters: Subcentimeter hypodensities are too small to characterize. Bladder: Scales catheter is seen. Reproductive organs: Unremarkable. Bowel: Diverticulosis is seen without evidence of diverticulitis. There is a small hiatal hernia. Lymph nodes Retroperitoneal: Unremarkable. Pelvic: Unremarkable. Mesenteric: Unremarkable. Peritoneum: Moderate ascites is seen. Vessels: Atherosclerotic calcifications are seen. Abdominal wall: A fat-containing umbilical hernia is seen. Bilateral fat-containing inguinal hernias are seen. Bones: Old healed rib fractures are seen. Degenerative changes are seen in the spine. IMPRESSION: 1. Cirrhosis and moderate ascites as above. 2. Diverticulosis without diverticulitis. 3. Cholelithiasis. ACT 112: Negative or not required by law. Electronically signed by: Donovan Smith M.D. 08/26/2023 1:56 PM
[2023-08-26 14:56] LABS: Amphetamines+Metham, Urine Neg (Neg); Barbiturates, Urine Neg (Neg); Benzodiazepine, Urine Neg (Neg); Cocaine, Urine Neg (Neg); MDMA (Ecstacy), Urine Neg (Neg); Marijuana, Urine Neg (Neg); Methadone, Urine Neg (Neg); Opiate, Urine Neg (Neg); Phencyclidine, Urine Neg (Neg)
--- NOTE | 2023-08-26 15:07 | Ultrasound Report ---
US venous doppler LE RT CLINICAL HISTORY: calf asymmetry, pitting edema TECHNIQUE: Right lower extremity real-time compression venous ultrasound with Color Doppler imaging. Utilizing real-time ultrasonic imaging multiple real time high-resolution ultrasonic images with comp ression and noncompression maneuvers of the deep venous system in addition to color doppler imaging w ere performed from the common femoral vein through the proximal calf veins. COMPARISON: Comparison is made to Doppler ultrasound 07/18/2022 FINDINGS/IMPRESSION: Currently there is normal compressibility of the deep venous system from the common femoral vein thro ugh the proximal calf veins. No superficial venous thrombosis is identified. ACT 112: Negative or not required by law. Electronically signed by: Donovan Smith M.D. 08/26/2023 3:06 PM
[2023-08-26] MEDS: INSULIN ASPART PER UNIT CHARGE SC SCH (16:38)
[2023-08-26] MEDS: LACTULOSE 200GM/700ML WTR ENEMA PR SCH (17:02)
[2023-08-26] MEDS: LACTULOSE SYRUP 30 GM/45 ML UDP PO SCH (18:05)
[2023-08-26] MEDS: ONDANSETRON INJ 2 MG/ML 2 ML VIAL IV ONE (21:38)
[2023-08-27] MEDS: LANTUS PER UNIT CHARGE SQ SCH (02:15)
[2023-08-27] MEDS: ONDANSETRON 2 MG OD TAB PO ONE (03:23)
--- NOTE | 2023-08-27 07:33 | Hospitalist Progress Note ---
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 - Ammonia level initially delayed and recollected due to hemolysis. Subsequently returned elevated at 114, likely hepatic encephalopathy. Patient unable to safely tolerate oral lactulose; lactulose enema every 8 hours ordered until able to switch to p.o. -with indwelling Scales. Exchange ordered. risk of catheter associated infection UCx pending. started on Ceftiraxone (2) Type 1 diabetes mellitus: Plan: Type I DM A1c previously well-controlled. More recently on Lantus 9 units at night. Dose reduced while NPO, continue 6 units at bedtime with sliding scale BSG checks every 4 hours while NPO, goal BSG [id number] - no hypoglycemia on admit (3) Liver cirrhosis: Plan: Cirrhosis, acute hyperammonemia With history of SBP 07/18/2022 hospitalized for this with liver cirrhosis, cirrhotic coagulopathy, ANDRES, hypotension. Gradually recovered from this after discharged to rehab -difficult to asses clinically with encephalopathy Patient with right lower extremity swelling with Doppler for DVT negative for DVT . CT of the abdomen pelvis with contrast ascites and cirrhosis no comment on Portal vein, Follows with [facility] - (4) Esophageal adenocarcinoma: Plan: Multiple cancer history Stage IIIb malignant melanoma with recurrent skin disease and multiple skin nodules primary. s/p Zelboraf followed by [facility] x2 years with good response, last tx 2019. 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 History of T3 N0 colon adenocarcinoma s/p resection 2013 without known recurrence GEJ adenocarcinoma PET scan 04/28/2019 was negative - MRI head negative (5) Vertebral artery stenosis: Plan: Frailty, history of dizziness and imbalance Patient had seen outpatient providers for dizziness and intermittent weakness, initially thought to be multifactorial with diabetic nephropathy/deconditioning/orthostatic hypotension. Patient has vertebral stenosis on the right, and either chronic or development trickle flow on the left consistent with posterior insufficiency. This does not appear to be new. Patient does not wish for aggressive surgical intervention surgeries, continue antiplatelet when able to tolerate meds (6) CKD (chronic kidney disease): Plan: CKD 3 Baseline creatinine 1.4 recently, creatinine 1.45 on admission (7) Goals of care, counseling/discussion: Plan: Goals of Care Reviewed multiple options for goals of care with family at bedside, including all continued measures and diagnostic evaluation, admission but without escalation of care, HIV/AIDS CARE NURSE, and outpatient hospice options. His son would like to have additional conversations with Pasha's sister who will be in the hospital in the next hour or so; however when son and grandson both agree that he would not want aggressive measures including surgery, any attempts at life support, or escalation of care. He would not want measures to extend his life if they came to a compromise to his quality of life at this time. On shared decision making agree with admitting Pasha to telemetry, completing MRI for further information, and completing metabolic and infectious workups including ammonia evaluation. He has been given Rocephin x 1 for contaminated versus infected UA, and this will also cover for SBP prophylaxis. OK with fluids for at least the next day. he has had no symptoms of SBP and had not had abdominal pain or fevers. If patient improves then family will reassess at that point, should patient worsen, or have irreversible cause of encephalopathy would want to move to HIV/AIDS CARE NURSE versus hospice at that time. Admission and Anticipated Discharge Date Admission Date: August 26, 2023 Subjective pt is awake and conversant says his stomach is not as swollen as he has in the past remembers that he has had previous arteries blocked to neck Physical Exam Physical Exam: awake and oreinted no asterexis abd is distended, dull Results & Data Results & Data Vital Signs (Past 12 Hours) Vital Signs Temp Pulse Pulse Resp BP Pulse Ox O2 Del Method 08/27/23 07:19 97.9 F 89 18 120/71 95 Room Air 08/27/23 03:00 97.5 F L 110 H 19 112/67 97 Nasal Cannula 08/26/23 23:00 97.9 F 67 16 111/61 95 Nasal Cannula 08/26/23 22:00 81 08/26/23 20:00 Room Air Laboratory Results review cbc review chemistry PG Care Time/CCT Total # of Minutes Spent Total Time Spent with Patient: Total time spent is greater than 50% in coordination of care (as documented) at patient's floor/unit and/or counseling patient: Coding Level of Care Code 82773 SUB INP/OBS CARE 3/50MIN Diagnoses Encephalopathy G93.40 Type 1 diabetes mellitus E10.9 Liver cirrhosis K74.60 Esophageal adenocarcinoma C15.9 Vertebral artery stenosis I65.09 CKD (chronic kidney disease) N18.9 Goals of care, counseling/discussion Z71.89
[2023-08-27 07:38] LABS: Albumin Globulin Ratio 0.9 (0.9-2); Albumin Level 2.9 gm/dl (3.4-5.0); BUN Creatinine Ratio 24.8 (10-20); Bilirubin,Total 0.9 mg/dl (0.2-1.0); Calcium 8.6 mg/dl (8.6-10.3); Creatinine Clr Calc Pharmacy 48.7 ml/min; Est GFR (African American) 60.6 ml/min; Est GFR (Non-African American) 52.3 ml/min; Globulin 3.3 gm/dl (2.5-4.0); Hematocrit (blood only) 31.9 % (42.0-52.0); Hemoglobin 10.1 g/dl (14.0-18.0); Mean Corpuscular Hemoglobin 28.3 pg (25.0-34.0); Mean Corpuscular Hgb Conc 31.7 g/dL (32.0-36.0); Mean Corpuscular Volume 89.4 fL (80.0-100.0); Platelet Count 107 K/uL (130-400); Potassium 4.6 mmol/L (3.5-5.1); RDW Coefficient of Variation 20.9 % (11.5-14.5); RDW Standard Deviation 67.8 fL (36.4-46.3); Red Blood Count 3.57 M/uL (4.70-6.10); Total Protein 6.2 gm/dl (6.0-8.3); White Blood Count 8.04 K/ul (4.8-10.8)
[2023-08-27 07:49] LABS: Anisocytosis Present; Basophils # (auto) 0.05 K/uL (0.00-0.20); Basophils % (auto) 0.6 %; Echinocytes 1+; Eosinophils # (auto) 0.15 K/uL (0.00-0.50); Eosinophils % (auto) 1.9 %; Immature Granulocytes # (auto) 0.12 K/uL (0.01-0.20); Immature Granulocytes % (auto) 1.5 %; Lymphocytes # (auto) 0.66 K/uL (1.20-3.40); Lymphocytes % (auto) 8.2 %; Monocytes # (auto) 0.96 K/uL (0.11-0.59); Monocytes % (auto) 11.9 %; Neutrophils % (auto) 75.9 %
[2023-08-27] MEDS: HEPARIN SOD 5,000 UNIT/0.5 ML VIAL SQ SCH (08:45)
[2023-08-27] MEDS: cefTRIAXone SODIUM 2,000 MG in DEXTROSE 5 % MINI-B 50 ML IV SCH (12:42)
--- NOTE | 2023-08-27 14:28 | Pharmacy Report ---
Pharmacy Glycemic Short Note 2 - Date of Service August 27, 2023 - Glycemic Short BSG Results (Last 24 hours): 08/26/23 08/26/23 08/27/23 15:17 20:18 00:23 Glucose POC Glucose 135 H 129 H 138 H 08/27/23 08/27/23 06:47 11:52 Glucose 110 H POC Glucose 130 H 129 H OUTPATIENT ANTIDIABETIC REGIMEN: * Lantus 9 units QPM * Novolog 8 units TID * HbA1c 6.8% (06/02/23) ASSESSMENT: * Pasha is a 73 YOM admitted with altered mental status and a history of T1DM. Pharmacy has been consulted to assist with glycemic management while inpatient. * Basal insulin initiated at a reduced dose to home dose * Novolog initiated at previously successful parameters * He is currently on ceftriaxone IV. PLAN FOR INPATIENT GLYCEMIC CONTROL: * Hold outpatient oral diabetes medications * Basal insulin * Lantus 6 units SQ HS * Bolus insulin * NovoLog per scale ACHS or Q6hrs while NPO * Goal Range: Low 110 mg/dL - High 140 mg/dL * Correction Factor: 30 mg/dL/unit * Nutritional / Prandial insulin per carb ratio of 1 unit per 8 grams CHO consumed
[2023-08-27 18:00] LABS: Appearance Urine Turbid (Clear); Bacteria Urine Automated Negative (Negative); Bilirubin Urine 1+ (Negative); Blood Urine 3+ (Negative); Color Urine Orange; Epithelial Cell Urine Auto >30 /lpf (0-5); Glucose Urine UA Negative (Negative); Ketones Urine Trace (Negative); Leukocyte Esterase Urine 1+ (Negative); Nitrite Urine Negative (Negative); Protein Urine 2+ (Negative); RBC Urine Automated >30 /hpf (0-4); Specific Gravity Urine > 1.045 (1.000-1.030); Urobilinogen Urine Negative (Negative)
[2023-08-27] MEDS: INSULIN ASPART PER UNIT CHARGE SC SCH (20:49)
[2023-08-28 07:41] LABS: Basophils # (auto) 0.05 K/uL (0.00-0.20); Basophils % (auto) 0.9 %; Echinocytes 1+; Eosinophils # (auto) 0.24 K/uL (0.00-0.50); Eosinophils % (auto) 4.2 %; Hematocrit (blood only) 33.5 % (42.0-52.0); Hemoglobin 10.3 g/dl (14.0-18.0); Immature Granulocytes # (auto) 0.02 K/uL (0.01-0.20); Immature Granulocytes % (auto) 0.3 %; Lymphocytes # (auto) 0.98 K/uL (1.20-3.40); Mean Corpuscular Hemoglobin 28.5 pg (25.0-34.0); Mean Corpuscular Hgb Conc 30.7 g/dL (32.0-36.0); Mean Corpuscular Volume 92.8 fL (80.0-100.0); Mean Platelet Volume 10.5 fL (9.4-12.4); Monocytes # (auto) 0.68 K/uL (0.11-0.59); Monocytes % (auto) 11.8 %; Neutrophils # (auto) 3.81 K/uL (1.40-6.50); Neutrophils % (auto) 65.8 %; Ovalocytes 1+; Platelet Count 96 K/uL (130-400); Platelet Estimate Decreased (Normal); Polychromasia 1+; RDW Coefficient of Variation 20.9 % (11.5-14.5); RDW Standard Deviation 70.4 fL (36.4-46.3); Red Blood Count 3.61 M/uL (4.70-6.10); White Blood Count 5.78 K/ul (4.8-10.8)
--- NOTE | 2023-08-28 13:45 | Ultrasound Report ---
ULTRASOUND-GUIDED PARACENTESIS CLINICAL HISTORY: Ascites PROCEDURE: Procedure and risks were explained. Informed consent was obtained. A final timeout was com pleted. The abdomen was prepped and draped in sterile fashion. 1% buffered lidocaine was utilized for skin anesthesia. Utilizing ultrasound guidance, a 5 Azeri safety centesis catheter was advanced into the left lower q uadrant pocket of ascites. Ultrasound images were obtained. A total of 4.7 L of ascites fluid was rem lilliam and 1 L was sent to lab for analysis. The catheter was removed and Band-Aid applied. The patient tolerated the procedure well. Vital signs will be monitored on the floor. IMPRESSION: Ultrasound-guided paracentesis as above. Performed, dictated, and signed by Sreekanth Israel PA-C; to be co-signed by Dr. Erwin Gomez. Electronically signed by: Erwin Gomez M.D. 08/28/2023 3:55 PM
--- NOTE | 2023-08-28 14:47 | Pharmacy Report ---
Pharmacy Glycemic Short Note 2 - Date of Service August 28, 2023 - Glycemic Short BSG Results (Last 24 hours): 08/27/23 08/28/23 08/28/23 20:27 07:31 11:29 POC Glucose 148 H 106 H 116 H 08/28/23 13:52 POC Glucose 211 H OUTPATIENT ANTIDIABETIC REGIMEN: * Lantus 9 units QPM * Novolog 8 units TID * HbA1c 6.8% (06/02/23) ASSESSMENT: 08/27 * Patient received total of 6 units of insulin yesterday, all of which were basal * Fasting BSG 106 mg/dL - now diet ordered and eating. Anticipate BSGs to rise, will provide a small increase in HS basal for tonight 08/26 * Pasha is a 73 YOM admitted with altered mental status and a history of T1DM. Pharmacy has been consulted to assist with glycemic management while inpatient. * Basal insulin initiated at a reduced dose to home dose * Novolog initiated at previously successful parameters * He is currently on ceftriaxone IV. PLAN FOR INPATIENT GLYCEMIC CONTROL: * Hold outpatient oral diabetes medications * Basal insulin * Lantus 7 units SQ HS * Bolus insulin * NovoLog per scale ACHS or Q6hrs while NPO * Goal Range: Low 110 mg/dL - High 140 mg/dL * Correction Factor: 25 mg/dL/unit * Nutritional / Prandial insulin per carb ratio of 1 unit per 8 grams CHO consumed
--- NOTE | 2023-08-28 18:09 | Hospitalist Progress Note ---
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 - Ammonia level initially delayed and recollected due to hemolysis. Subsequently returned elevated at 114, likely hepatic encephalopathy. ammonia with great improvement along with mental status -with indwelling Scales. Exchange ordered. risk of catheter associated infection UCx pending. started on Ceftiraxone (2) Type 1 diabetes mellitus: Plan: Type I DM A1c previously well-controlled. More recently on Lantus 9 units at night. Dose reduced while NPO, continue 6 units at bedtime with sliding scale BSG checks every 4 hours while NPO, goal BSG [id number] - no hypoglycemia on admit (3) Liver cirrhosis: Plan: Cirrhosis, acute hyperammonemia With history of SBP 07/18/2022 hospitalized for this with liver cirrhosis, cirrhotic coagulopathy, ANDRES, hypotension. Gradually recovered from this after discharged to rehab -difficult to asses clinically with encephalopathy Patient with right lower extremity swelling with Doppler for DVT negative for DVT . CT of the abdomen pelvis with contrast ascites and cirrhosis no comment on Portal vein, Follows with [facility] [place] [facility] paracenteis 08/27 4.7 L removed, albumin ordered - (4) Esophageal adenocarcinoma: Plan: Multiple cancer history Stage IIIb malignant melanoma with recurrent skin disease and multiple skin nodules primary. s/p Zelboraf followed by [facility] x2 years with good response, last tx 2019. 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 History of T3 N0 colon adenocarcinoma s/p resection 2013 without known recurrence GEJ adenocarcinoma PET scan 04/28/2019 was negative - MRI head negative (5) Vertebral artery stenosis: Plan: Frailty, history of dizziness and imbalance Patient had seen outpatient providers for dizziness and intermittent weakness, initially thought to be multifactorial with diabetic nephropathy/deconditioning/orthostatic hypotension. Patient has vertebral stenosis on the right, and either chronic or development trickle flow on the left consistent with posterior insufficiency. This does not appear to be new. Patient does not wish for aggressive surgical intervention surgeries, continue antiplatelet when able to tolerate meds (6) CKD (chronic kidney disease): Plan: CKD 3 Baseline creatinine 1.4 recently, creatinine 1.45 on admission (7) Goals of care, counseling/discussion: Plan: Pt has recovered Admission and Anticipated Discharge Date Admission Date: August 26, 2023 Subjective pt is awake and conversant significant stool outputy says his stomach is not as swollen, did have paracentesis 08/27, albumin ordered remembers that he has had previous arteries blocked to neck Physical Exam Physical Exam: awake and oriented no asterixis abd is distended, dull, non tender Results & Data Results & Data Vital Signs (Past 12 Hours) Vital Signs Temp Pulse Pulse Resp BP Pulse Ox O2 Del Method 08/28/23 15:13 98.1 F 83 19 124/69 97 Room Air 08/28/23 11:27 97.9 F 83 18 120/70 95 Room Air 08/28/23 09:00 90 08/28/23 09:00 Room Air 08/28/23 07:24 98.1 F 87 18 95/60 L 92 Room Air Laboratory Results reviewed cbc reviewed ammonia PG Care Time/CCT Total # of Minutes Spent Total Time Spent with Patient: Total time spent is greater than 50% in coordination of care (as documented) at patient's floor/unit and/or counseling patient: Coding Level of Care Code 60527 SUB INP/OBS CARE 3/50MIN Diagnoses Encephalopathy G93.40 Type 1 diabetes mellitus E10.9 Liver cirrhosis K74.60 Esophageal adenocarcinoma C15.9 Vertebral artery stenosis I65.09 CKD (chronic kidney disease) N18.9 Goals of care, counseling/discussion Z71.89
[2023-08-28] MEDS: ALBUMIN 25% 25 GM/100 ML VIAL IV SCH (18:41)
[2023-08-28] MEDS: INSULIN ASPART PER UNIT CHARGE SC SCH (20:52)
[2023-08-28] MEDS: LANTUS PER UNIT CHARGE SQ SCH (21:01)
[2023-08-29 06:34] LABS: Basophils # (auto) 0.05 K/uL (0.00-0.20); Basophils % (auto) 1.2 %; Eosinophils # (auto) 0.15 K/uL (0.00-0.50); Eosinophils % (auto) 3.7 %; Hematocrit (blood only) 28.5 % (42.0-52.0); Hemoglobin 8.6 g/dl (14.0-18.0); Immature Granulocytes # (auto) 0.02 K/uL (0.01-0.20); Immature Granulocytes % (auto) 0.5 %; Lymphocytes # (auto) 0.78 K/uL (1.20-3.40); Lymphocytes % (auto) 19.2 %; Mean Corpuscular Hemoglobin 27.8 pg (25.0-34.0); Mean Corpuscular Hgb Conc 30.2 g/dL (32.0-36.0); Mean Corpuscular Volume 92.2 fL (80.0-100.0); Mean Platelet Volume 10.2 fL (9.4-12.4); Monocytes # (auto) 0.43 K/uL (0.11-0.59); Monocytes % (auto) 10.6 %; Neutrophils # (auto) 2.63 K/uL (1.40-6.50); Neutrophils % (auto) 64.8 %; Platelet Count 81 K/uL (130-400); RDW Coefficient of Variation 20.2 % (11.5-14.5); RDW Standard Deviation 67.4 fL (36.4-46.3); Red Blood Count 3.09 M/uL (4.70-6.10); White Blood Count 4.06 K/ul (4.8-10.8)
[2023-08-29 06:55] LABS: Albumin Globulin Ratio 1.2 (0.9-2); Albumin Level 3.1 gm/dl (3.4-5.0); BUN Creatinine Ratio 27.9 (10-20); Bilirubin,Total 0.8 mg/dl (0.2-1.0); Calcium 8.1 mg/dl (8.6-10.3); Creatinine Clr Calc Pharmacy 62.3 ml/min; Est GFR (African American) 81.6 ml/min; Est GFR (Non-African American) 70.4 ml/min; Globulin 2.5 gm/dl (2.5-4.0); Potassium 4.1 mmol/L (3.5-5.1); Total Protein 5.6 gm/dl (6.0-8.3)
[2023-08-29 07:00] LABS: Ovalocytes 1+; Polychromasia 1+
[2023-08-29] MEDS: LACTULOSE SYRUP 30 GM/45 ML UDP PO SCH (09:07)
--- NOTE | 2023-08-29 14:07 | Pharmacy Report ---
Pharmacy Glycemic Short Note 2 - Date of Service August 29, 2023 - Glycemic Short BSG Results (Last 24 hours): 08/28/23 08/28/23 08/29/23 16:13 20:54 06:10 Glucose 77 POC Glucose 118 H 143 H 08/29/23 08/29/23 07:13 11:04 Glucose POC Glucose 98 140 H OUTPATIENT ANTIDIABETIC REGIMEN: * Lantus 9 units QPM * Novolog 8 units TID * HbA1c 6.8% (06/02/23) ASSESSMENT: 08/28 * Psaha received 25 units of insulin yesterday (7 were basal) * Fasting BSG this AM slightly below goal range, will decrease basal insulin slightly tonight * No change to Novolog * He is receiving Plasmalyte at 80mLs/hr 08/27 * Patient received total of 6 units of insulin yesterday, all of which were basal * Fasting BSG 106 mg/dL - now diet ordered and eating. Anticipate BSGs to rise, will provide a small increase in HS basal for tonight 08/26 * Pasha is a 73 YOM admitted with altered mental status and a history of T1DM. Pharmacy has been consulted to assist with glycemic management while inpatient. * Basal insulin initiated at a reduced dose to home dose * Novolog initiated at previously successful parameters * He is currently on ceftriaxone IV. PLAN FOR INPATIENT GLYCEMIC CONTROL: * Hold outpatient oral diabetes medications * Basal insulin * Lantus 6 units SQ HS * Bolus insulin * NovoLog per scale ACHS or Q6hrs while NPO * Goal Range: Low 90 mg/dL - High 150 mg/dL * Correction Factor: 25 mg/dL/unit * Nutritional / Prandial insulin per carb ratio of 1 unit per 8 grams CHO consumed
--- NOTE | 2023-08-29 17:58 | Hospitalist Progress Note ---
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 - Ammonia level initially delayed and recollected due to hemolysis. Subsequently returned elevated at 114, likely hepatic encephalopathy. ammonia with great improvement along with mental status -with indwelling Scales. Exchange ordered. risk of catheter associated infection UCx <1000 stop abtx pt had 4.7 L ascitic fluid removed 08/27, did have albumin did have slight drop in hgb recheck in afternoon stable, recheck in am 08/29 (2) Type 1 diabetes mellitus: Plan: Type I DM A1c previously well-controlled. More recently on Lantus 9 units at night. Dose reduced while NPO, continue 6 units at bedtime with sliding scale BSG checks every 4 hours while NPO, goal BSG [id number] - no hypoglycemia on admit (3) Liver cirrhosis: Plan: Cirrhosis, acute hyperammonemia With history of SBP 07/18/2022 hospitalized for this with liver cirrhosis, cirrhotic coagulopathy, ANDRES, hypotension. Gradually recovered from this after discharged to rehab -difficult to asses clinically with encephalopathy Patient with right lower extremity swelling with Doppler for DVT negative for DVT . CT of the abdomen pelvis with contrast ascites and cirrhosis no comment on Portal vein, Follows with [facility] [place] [facility] paracenteis 08/27 4.7 L removed, albumin ordered - (4) Esophageal adenocarcinoma: Plan: Multiple cancer history Stage IIIb malignant melanoma with recurrent skin disease and multiple skin nodules primary. s/p Zelboraf followed by [facility] x2 years with good response, last tx 2019. 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 History of T3 N0 colon adenocarcinoma s/p resection 2013 without known recurrence GEJ adenocarcinoma PET scan 04/28/2019 was negative - MRI head negative (5) Vertebral artery stenosis: Plan: Frailty, history of dizziness and imbalance Patient had seen outpatient providers for dizziness and intermittent weakness, initially thought to be multifactorial with diabetic nephropathy/deconditioning/orthostatic hypotension. Patient has vertebral stenosis on the right, and either chronic or development trickle flow on the left consistent with posterior insufficiency. This does not appear to be new. Patient does not wish for aggressive surgical intervention surgeries, continue antiplatelet when able to tolerate meds (6) CKD (chronic kidney disease): Plan: CKD 3 Baseline creatinine 1.4 recently, creatinine 1.45 on admission (7) Goals of care, counseling/discussion: Plan: Pt has recovered , if hgb stable will return to [facility] Admission and Anticipated Discharge Date Admission Date: August 26, 2023 Subjective pt is awake and conversant reduced lactulose and follow ammonia, still low and mental status clear did have paracentesis 08/27, albumin given, some anemia, watch till 08/29 if stable consider return to [facility] remembers that he has had previous arteries blocked to neck Physical Exam Physical Exam: awake and oriented no asterixis abd is less distended, dull, non tender Results & Data Results & Data Vital Signs (Past 12 Hours) Vital Signs Temp Pulse Resp BP Pulse Ox O2 Del Method 08/29/23 15:22 97.7 F 81 17 110/69 98 Room Air 08/29/23 10:54 98.2 F 78 19 97/55 L 97 Room Air 08/29/23 09:18 Room Air 08/29/23 07:13 98.1 F 79 18 95/84 L 95 Room Air Laboratory Results review cbc review hgb stable on recheck review chemistry PG Care Time/CCT Total # of Minutes Spent Total Time Spent with Patient: Total time spent is greater than 50% in coordination of care (as documented) at patient's floor/unit and/or counseling patient: Coding Level of Care Code 71478 SUB INP/OBS CARE 3/50MIN Diagnoses Encephalopathy G93.40 Type 1 diabetes mellitus E10.9 Liver cirrhosis K74.60 Esophageal adenocarcinoma C15.9 Vertebral artery stenosis I65.09 CKD (chronic kidney disease) N18.9 Goals of care, counseling/discussion Z71.89
[2023-08-29] MEDS: LANTUS PER UNIT CHARGE SQ SCH (20:45)
[2023-08-30 06:35] LABS: Hematocrit (blood only) 29.3 % (42.0-52.0); Hemoglobin 9.1 g/dl (14.0-18.0); Mean Corpuscular Hemoglobin 28.5 pg (25.0-34.0); Mean Corpuscular Hgb Conc 31.1 g/dL (32.0-36.0); Mean Corpuscular Volume 91.8 fL (80.0-100.0); Mean Platelet Volume 10.4 fL (9.4-12.4); Platelet Count 90 K/uL (130-400); RDW Standard Deviation 67.2 fL (36.4-46.3); Red Blood Count 3.19 M/uL (4.70-6.10); White Blood Count 5.24 K/ul (4.8-10.8)
[2023-08-30 06:49] LABS: Albumin Globulin Ratio 1.2 (0.9-2); BUN Creatinine Ratio 27.3 (10-20); Bilirubin,Total 0.7 mg/dl (0.2-1.0); Creatinine Clr Calc Pharmacy 71.2 ml/min; Est GFR (African American) 86.6 ml/min; Est GFR (Non-African American) 74.7 ml/min; Globulin 2.6 gm/dl (2.5-4.0); Potassium 4.1 mmol/L (3.5-5.1); Total Protein 5.6 gm/dl (6.0-8.3)
--- NOTE | 2023-08-30 11:57 | Discharge Summary ---
Date of Service August 30, 2023 Admission HPI Per Admitting Provider Pasha is a 73-year-old male with a past medical history of compensated cirrhosis, hyperlipidemia, colon cancer, melanoma, SCC, BCC, prior spontaneous bacterial peritonitis, type 1 diabetes mellitus who was recently seen in the ER 2 days prior to admission for urinary retention and constipation and had a Scales placed and he was subsequently discharged to inpatient rehab who was reportedly in his normal state of health last night when going to bed however when nurses went to deliver morning medications was unresponsive to verbal stimuli and minimally responsive to noxious stimuli with a normal blood pressure, heart rate, and O2 sat. He was transported to [facility] by EMS for additional evaluation and care While in the ER initial evaluation is with a contaminated versus infected appearing UA in the setting of indwelling Scales but without fever or leukocytosis, with a normal Pro-Alejo, and with normal lactate. Ammonia is drawn due to history of cirrhosis, this is pending and required redraw to hemolysis at time of initial assessment. Per collateral patient had not had any precipitating confusion before going to bed the evening before and is conversational and generally well oriented at baseline. Head CT/CTA shows no acute intracranial abnormality, age-indeterminate high- grade stenosis of RIGHT V2 at C2-C3 with trickle left vertebral flow likely chronic or developmental. Chest x-ray was with no acute finding, EKG was sinus with PACs and no signs of territorial ischemia or A-fib. Patient has a history of type 1 diabetes on insulin, glucose on admission 120. Pasha is seen with multiple family members including his son present. Family reports that he was otherwise well last night, but had had gradual decline, challenges with cirrhosis due to a past history of alcohol use, multiple cancers , diabetes and expressed frustration with his continued health decline. He has not had any fever, chills, sweats or infectious symptoms yesterday, had a reducible hernia for which she did not want surgery otherwise has no abdominal pain or symptoms recently, and had not been on any narcotics or sedating medications in the family's knowledge. Family reports he does not drink alcohol or use tobacco products currently, does have a past history of alcohol use. Has been compliant with all medications. Has not had any recent chest pain or chest pressure. No cough or shortness of breath. Patient had had intermittent persistent dizziness that he had been seen multiple times for it as an outpatient but which has not changed recently. At bedside family notes that he had expressed frustration with his current quality of life and that he was ready to pass. He has had discussions with his family regarding his life insurance recently, and his son notes that he would not want aggressive measures likely to harm his quality of life. No history of SI/HI.Reviewed multiple options for goals of care with family at bedside, including all continued measures and diagnostic evaluation, admission but without escalation of care, [facility], and outpatient hospice options. His son would like to have additional conversations with Pasha's sister who will be in the hospital in the next hour or so; however when son and grandson both agree that he would not want aggressive measures including surgery, any attempts at life support, or escalation of care. He would not want measures to extend his life if they came to a compromise to his quality of life at this time. On shared decision making agree with admitting Pasha to telemetry, completing MRI for further information, and completing metabolic and infectious workups including ammonia evaluation. He has been given Rocephin x 1 for contaminated versus infected UA, and this will also cover for SBP prophylaxis. no abd pain. OK with fluids for at least the next day. he has had no symptoms of SBP and had not had abdominal pain or fevers. If patient improves then family will reassess at that point, should patient worsen, or have irreversible cause of encephalopathy would want to move to [facility] versus hospice at that time. 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 His son would like to have additional conversations with Pasha's sister who will be in the hospital in the next hour or so; however when son and grandson both agree that he would not want aggressive measures including surgery, any attempts at life support, or escalation of care. He would not want measures to extend his life if they came to a compromise to his quality of life at this time. On shared decision making agree with admitting Pasha to telemetry, completing MRI for further information, and completing metabolic and infectious workups including ammonia levels and hepatic encephalopathy eval. He has been given Rocephin x 1 for contaminated versus infected UA, and this will also cover for SBP prophylaxis. OK with fluids for at least the next day. he has had no symptoms of SBP and had not had abdominal pain or fevers. If patient improves then family will reassess at that point, should patient worsen, or have irreversible cause of encephalopathy would want to move to [facility] versus hospice at that time. Principal Diagnosis encephalopathy Discharge Exam awake and oriented no asterixis abd is less distended, dull, non tender Discharge Data Allergies Allergy/AdvReac Type Severity Reaction Status Date / Time No Known Allergies Allergy Verified 08/26/23 10:03 Ordered Studies 08/26/23 07:18 CT angio head wo/w Stat 08/26/23 10:09 MRI Brain [MR brain wo/w con] Stat 08/26/23 11:40 US venous doppler LE RT Stat 08/26/23 13:11 CT Abd and Pelvis [CT abd pelvis IV con only] Stat 08/28/23 12:16 IR paracentesis abd w/img US Routine Hospital Course (1) Encephalopathy: Altered mental status, hepatic encephalopathy metabolic encephalopathy from uti poa, or possibly SBP appears to be ruled out. History of cirrhosis from former alcohol use in remission. 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 - Ammonia level initially delayed and recollected due to hemolysis. Subsequently returned elevated at 114, likely hepatic encephalopathy. ammonia with great improvement along with mental status -with indwelling Scales. Exchange ordered. risk of catheter associated infection UCx <1000 stop abtx pt had 4.7 L ascitic fluid removed 08/27, Hemoglobin fluctuated but appears to be stable at 9.1 will resume home dose of spironolactone and lasix. Patient will be on lactulose at discharge which appears to be a new medication (2) Type 1 diabetes mellitus: Type I DM A1c previously well-controlled. More recently on Lantus 9 units at night. (3) Liver cirrhosis: Cirrhosis, acute hyperammonemia With history of SBP 07/18/2022 hospitalized for this with liver cirrhosis, cirrhotic coagulopathy, ANDRES, hypotension. Gradually recovered from this after discharged to rehab -difficult to asses clinically with encephalopathy Patient with right lower extremity swelling with Doppler for DVT negative for DVT . CT of the abdomen pelvis with contrast ascites and cirrhosis no comment on Portal vein, Follows with [facility] paracenteis 08/27 4.7 L removed, albumin ordered (4) Esophageal adenocarcinoma: Multiple cancer history Stage IIIb malignant melanoma with recurrent skin disease and multiple skin nodules primary. s/p Zelboraf followed by [facility] x2 years with good response, last tx 2019. 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 History of T3 N0 colon adenocarcinoma s/p resection 2013 without known recurrence GEJ adenocarcinoma PET scan 04/28/2019 was negative - MRI head negative (5) Vertebral artery stenosis: Frailty, history of dizziness and imbalance Patient had seen outpatient providers for dizziness and intermittent weakness, initially thought to be multifactorial with diabetic nephropathy/deconditioning/orthostatic hypotension. Patient has vertebral stenosis on the right, and either chronic or development trickle flow on the left consistent with posterior insufficiency. This does not appear to be new. Patient does not wish for aggressive surgical intervention surgeries, continue antiplatelet when able to tolerate meds (6) CKD (chronic kidney disease): CKD 3 Baseline creatinine 1.4 recently, creatinine 1.45 on admission (7) Goals of care, counseling/discussion: Total Time Total Time Spent Total Time Spent (In Minutes): 32 Discharge Plan Discharge Items Patient Disposition: Transfer Inpatient Rehab Fac Reason For Visit: AMS, cirrhosis and ascites Discharge Diagnosis: AMS, cirrhosis, and ascities Activity: Resume your previous activity Non-emergency contact: Primary Care Provider Call non-emergency contact if: you have any medication questions Follow-up/Referrals: Rosalva Bravo MD [Primary Care Provider] - Diet: Low Sodium (2gm) Addtl Attending Provider Instructions: You were admitted with confusion. This was likely due to hepatic encephalopathy. When you have cirrhosis, you can retain ammonia. This can lead to confusion. You will be on lactulose. Will also recommend we recheck your hemoglobin in the upcoming days. Pending Studies at Discharge: No Stand-Alone Forms: My [facility] Skilled Items Patient informed of condition?: Yes DNR: Yes Discharge Level of Care: Acute rehab Communicable Disease: No Discharge Prognosis: Stable Lines: None Urinary Catheter: Yes Medications and DC Order Prescriptions: New lactulose 10 gram/15 mL (15 mL) Solution 30 g PO BID Qty: 600 0RF Rx Instructions: 2-3 Bowel movements a day Continued atorvastatin 40 mg tablet 40 mg PO HS 90 Days Qty: 90 3RF Hold Instructions: Home Medication placed on hold at Doctor's office Rx Instructions: TAKE 1 TAB BY MOUTH AT BEDTIME spironolactone 100 mg tablet 100 mg PO QAM Qty: 90 3RF (DME) OneTouch Verio test strips Strip See Dose Instructions .ROUTE .MEDSUPPLY Qty: 300 3RF Rx Instructions: Test blood sugars 3 times a day levothyroxine 88 mcg tablet 88 mcg PO QAM Qty: 90 1RF Rx Instructions: 88 mcg PO TAKE ON AN EMPTY STOMACH WITH A FULL GLASS OF WATER, WAIT 30 MINUTES TO EAT, DRINK, OR TAKE MEDICATIONS; (DME) Lift Chair See Rx Instructions .Route .MEDSUPPLY Qty: 1 0RF Rx Instructions: Patient would benefit from a lift chair aspirin [Adult Low Dose Aspirin] 81 mg tablet,delayed release (DR/EC) 81 mg PO DAILY (DME) Wheeled Walker Misc See Rx Instructions .Route Qty: 1 0RF Rx Instructions: As directed insulin glargine [Lantus Solostar U-100 Insulin] 100 unit/mL (3 mL) insulin pen 9 unit subcut QPM midodrine 5 mg tablet 5 mg PO TID@0800,1200,1700 furosemide 40 mg tablet 20 mg PO QAM multivitamin tablet 1 tab PO QPM (DME) lancets [OneTouch Delica Lancets] 33 gauge misc See Rx Instructions .ROUTE .MEDSUPPLY Qty: 100 Rx Instructions: Test blood sugars 3 times a day (DME) pen needle, diabetic [BD Ultra-Fine Pascale Pen Needle] 32 gauge x 5/32" needle See Rx Instructions .ROUTE .MEDSUPPLY Rx Instructions: Inject insulin 4 times a day insulin aspart U-100 [Novolog FlexPen U-100 Insulin] 100 unit/mL (3 mL) insulin pen 8 unit subcut TID Hold Instructions: per Provider omeprazole 40 mg capsule,delayed release(DR/EC) 40 mg PO DAILY Discontinued polyethylene glycol 3350 [Miralax] 17 gram Powder In Packet 17 g PO DAILY Qty: 30 0RF Discharge Orders: Discharge Order (Routine); Ordered 08/30/23 Ordered By: Garland Raygoza Admission Data Admit Date/Time: 08/26/23 11:18 Attending Provider: Garland Raygoza Admit Provider: Papi Pierre Primary Care Provider: Rosalva Bravo Coding Level of Care Code 23636 INP/OBS DISCH >30 MIN Diagnoses Encephalopathy G93.40 Type 1 diabetes mellitus E10.9 Liver cirrhosis K74.60 Esophageal adenocarcinoma C15.9 Vertebral artery stenosis I65.09 CKD (chronic kidney disease) N18.9 Goals of care, counseling/discussion Z71.89
== END 2023-08-30 13:55 | DRG 433 ==
LOC: ED 07:11 → EDINP 11:18 → SUATTDRO 11:18 → 2S 13:50